=== PATIENT | female | born 1940 | race Caucasian/White ===

== ENCOUNTER → 2016-04-24 | Outpatient (CLI) | payer OTHER ==
[~2016-04-24] MED LIST: ACET-1138 PO; ACET-1256 PO; ATOR-22 PO; CALCTAB5 PO; CLC100 PO; DLCS PR; LEVO100T35 PO; MLXC PO; MOMLX PO; MULTCHW PO; PRLSR20 PO; RXC5 PO; SERT-234 PO; SYN100 PO; TRAM-10 PO; ZNTT/150 PO
[2016-04-24 17:59] LABS: ALT/SGPT 22 U/L (12-78); BLOOD UREA NITROGEN 12 mg/dl (7-18); BUN/CREATININE RATIO 17.5 (10-20); CARBON DIOXIDE 25 mmol/L (21-32); CHLORIDE 106 mmol/L (98-107); CHOLESTEROL 169 mg/dl (0-200); CREATININE 0.71 mg/dl (0.60-1.20); GLUCOSE 98 mg/dl (70-99); POTASSIUM 4.3 mmol/L (3.5-5.1); SODIUM 140 mmol/L (136-145)
[2016-04-24 18:09] LABS: ALB/GLOB RATIO 0.8 (0.9-2); ALKALINE PHOSPHATASE 156 U/L (45-117); AST/SGOT 19 U/L (15-37); CHOLESTEROL/HDL RATIO 2.2; HDL CHOLESTEROL 78 mg/dl; LDL CHOLESTEROL CALCULATED 72 mg/dl; TRIGLYCERIDES 93 mg/dl (0-150); VERY LOW DENSITY LIPOPROT CALC 19 mg/dl
== END | disposition home or self-care (01) ==
LOC: C.LABPVFM 14:12
PROVIDERS: ATTEND Family Medicine
DX: E03.9 Hypothyroidism, unspecified (principal); E78.2 Mixed hyperlipidemia

== ENCOUNTER → 2016-06-13 | Outpatient (CLI) | payer OTHER ==
[~2016-06-13] MED LIST changes: +CALC600T37 PO; +LEVO100T7 PO; +MULT-506 PO; +SERT1TAB68 PO
--- NOTE | 2016-06-13 12:07 | DIAGNOSTIC IMAGING REPORT ---
LEFT RIBS UNILATERAL WITH PA CHEST CLINICAL HISTORY: CHEST WALL PAIN, INSPIRATORY PAIN pain. Dyspnea. COMPARISON STUDY: None FINDINGS: Negative left ribs. Severe degenerative change left shoulder. Chronic granulomatous changes left hilum. IMPRESSION: 1. No acute abnormality ribs. 2. Severe degenerative change left shoulder. Electronically signed by: Sanket Beckford M.D. 06/13/2016 12:05 PM Dictated Date/Time: 06/13/2016 12:03 PM
== END | disposition home or self-care (01) ==
LOC: C.RADPV 11:37
PROVIDERS: ATTEND Nurse Practitioner
DX: R07.89 Other chest pain (principal); R07.1 Chest pain on breathing

== ENCOUNTER 2016-08-07 08:16 | Inpatient (IN) | payer OTHER ==
[2016-07-26 14:32] VITALS: BMI 41.0
--- NOTE | 2016-07-26 15:08 | PAT Medication Instructions ---
Service Date July 26, 2016. Current Home Medication List Acetaminophen (Tylenol), 1,000 MG PO Q6 PRN for Pain Atorvastatin (Lipitor), 20 MG PO QPM Calcium Carbonate (Caltrate 600), 1 TAB PO HS Levothyroxine Sodium (Levoxyl), 100 MCG PO QAM Multiple Vitamins W/ Minerals (Centrum Silver), 1 TAB PO QAM Omeprazole (Prilosec), 20 MG PO BID Ranitidine (Zantac), 150 MG PO BID Sertraline (Zoloft), 100 MG PO QAM Medication Instructions For Your Scheduled Surgery - Hold the following medications the morning of surgery: Multiple Vitamins W/ Minerals (Centrum Silver), 1 TAB PO QAM - Take the following medications the morning of surgery with a sip of water: Sertraline (Zoloft), 100 MG PO QAM Omeprazole (Prilosec), 20 MG PO BID Ranitidine (Zantac), 150 MG PO BID Levothyroxine Sodium (Levoxyl), 100 MCG PO QAM Acetaminophen (Tylenol), 1,000 MG PO Q6 PRN for Pain (if needed) - Take the following medications as scheduled the night before surgery: Omeprazole (Prilosec), 20 MG PO BID Ranitidine (Zantac), 150 MG PO BID .Atorvastatin (Lipitor), 20 MG PO QPM Calcium Carbonate (Caltrate 600), 1 TAB PO HS If you have any questions please call us at [phone] or [phone] ( Michelle) or [phone]
[2016-07-26 16:01] LABS: BASO % 0.3 %; BASO ABS # 0.02 K/uL (0-0.2); COMPLETE YES; EOS % 0.3 %; HEMATOCRIT 43.1 % (37-47); IG% 0.2 %; LYMPH ABS # 1.25 K/uL (1.2-3.4); MEAN CELL VOLUME 93.5 fL (80-100); MEAN CORPUSCULAR HEMOGLOBIN 30.6 pg (25-34); MEAN CORPUSCULAR HGB CONC 32.7 g/dl (32-36); MEAN PLATELET VOLUME 9.3 fL (7.4-10.4); MONO % 4.6 %; NEUT % 74.6 %; PLATELET COUNT 260 K/uL (130-400); RED BLOOD COUNT 4.61 M/uL (4.2-5.4); WHITE BLOOD COUNT 6.25 K/uL (4.8-10.8)
--- NOTE | 2016-07-26 16:16 | DIAGNOSTIC IMAGING REPORT ---
CHEST PREADMISSION(PA/LAT) CLINICAL HISTORY: Preoperative evaluation. COMPARISON STUDY: Chest CT April 14, 2015. FINDINGS: Lung volumes are normal. Lungs are clear. There is no pneumothorax or pleural effusion. There are calcified left hilar lymph nodes. Mild cardiomegaly is noted. There is no evidence of pulmonary edema. Lumbar spine fusion hardware is partially imaged. IMPRESSION: 1. No acute cardiopulmonary findings. 2. Moderate cardiomegaly. Electronically signed by: Alan Brannon M.D. 07/26/2016 4:14 PM Dictated Date/Time: 07/26/2016 4:12 PM
[2016-07-26 16:27] LABS: PROTHROMBIN TIME (PATIENT) 10.7 SECONDS (9.0-12.0)
[2016-07-26 18:29] LABS: CREATININE 0.76 mg/dl (0.60-1.20)
[2016-07-26 18:30] LABS: BUN/CREATININE RATIO 15.9 (10-20); CALCIUM 9.3 mg/dl (8.5-10.1); POTASSIUM 4.1 mmol/L (3.5-5.1)
[2016-07-27 07:28] LABS: ESTIMATED AVERAGE GLUCOSE 128 mg/dl; HA1C FLAG Normal (Normal)
[2016-07-27 09:34] LABS: URINE APPEARANCE CLEAR (CLEAR); URINE BILIRUBIN NEG (NEG); URINE COLOR YELLOW; URINE NITRITE NEG (NEG); URINE SPECIFIC GRAVITY 1.017 (1.000-1.030); UROBILINOGEN NEG (NEG)
[2016-07-27 09:37] LABS: MANUAL MICROSCOPIC REQUIRED? NO; REVIEW REQ? NO
--- NOTE | 2016-08-06 19:57 | HISTORY & PHYSICAL EXAMINATION ---
DATE OF ADMISSION: 08/07/2016 CHIEF COMPLAINT: Chronic left shoulder pain. HISTORY OF PRESENT ILLNESS: This is a 76-year-old female patient of Dr. Dunbar'ema complaining of chronic left shoulder pain, longstanding, now progressively getting worse. The patient has failed conservative treatment and wished to proceed with a left total shoulder arthroplasty and excision of calcific deposit. PAST MEDICAL HISTORY: Hypercholesterolemia, hypothyroidism, osteoarthritis, spine problems, sciatica, acid reflux, hiatal hernia, obesity, uterine cancer. SOCIAL HISTORY: Nonsmoker, nondrinker. PAST SURGICAL HISTORY: Bilateral hip replacements, back surgery, hysterectomy and tubal ligation. FAMILY HISTORY: Noncontributory. REVIEW OF SYSTEMS: The patient complains of chronic left shoulder pain. Otherwise, denies any shortness of breath, chest pain, nausea, vomiting or any other joint complaints. MEDICATIONS: Include Levoxyl 100 mcg daily, Zoloft 100 mg daily, ranitidine 150 mg b.i.d., omeprazole 20 mg b.i.d., Centrum Complete vitamin daily, atorvastatin 20 mg daily, Caltrate 600 plus D daily, Tylenol Arthritis as needed. ALLERGIES: ASPIRIN. PHYSICAL EXAMINATION: GENERAL: Well-developed, well-nourished 76-year-old female in no acute distress. She is alert and oriented x3 and pleasant. HEENT: Normocephalic, atraumatic. Extraocular motions are intact. Pupils are equal and reactive to light. HEART: Regular rate and rhythm. No murmurs are appreciated. LUNGS: Clear. ABDOMEN: Soft, nontender, bowel sounds present. EXTREMITIES: Left shoulder reveals active range of motion of 0-180, passively to 170. She has crepitation with passive range of motion. She has 4/5 strength. NEUROLOGIC: Neurovascularly, she is intact in her left upper extremity. She does have pain with range of motion. DIAGNOSES: Left shoulder end-stage osteoarthritis with calcific deposit. She also has a history of hypercholesterolemia, hypothyroidism, osteoarthritis, spine problems, sciatica, acid reflux, hiatal hernia, obesity and a history of uterine cancer. PLAN: The patient was advised of her diagnoses. Indications, risks, benefits, and postop course have all been reviewed. The patient wishes to proceed with a left total shoulder arthroplasty and excision of calcific deposit. Necessary consent forms, preoperative testing and clearances will be obtained.
[2016-08-07] VITALS (7 sets, daily range): BP systolic 124–156; BP diastolic 74–96; PULSE 88–104; TEMP 34.8–37.1; O2SAT 93–98; Ht 154.9 cm; Wt 97.5 kg
[~2016-08-07] VITALS: Ht 154.9 cm; Wt 97.5 kg
[~2016-08-07 08:16] MED LIST changes: -ACET-1138 PO; +ACETAMINOPHEN 500 MG TAB PO SCH; -CALC600T37 PO; +CEFAZOLIN 2000 MG/60 ML D5W 60 ML IV SCH; -CLC100 PO; +CeleBREX 200 MG CAP PO SCH; +DEXAMETHASONE 4 MG TAB PO SCH; +DEXAMETHASONE SOD INJ 4 MG/ML VIAL ONE; -DLCS PR; +FAMOTIDINE 20 MG TAB PO SCH; +FENTANYL CITRATE INJ 50 MCG/1 ML 2 ML VIAL ONE; +GABAPENTIN 300 MG CAP PO SCH; +GLYCOPYRROLATE INJ 0.2 MG/ML VIAL ONE; +LACTATED RINGER'S 1000ML 1,000 ML IV SCH; -LEVO100T7 PO; +LIDOCAINE HCL 2% 2 ML VIAL (20MG/ML) ONE; +METOCLOPRAMIDE HCL 10 MG TAB PO SCH; +MIDAZOLAM HCL 1 MG/ML 2ML VIAL ONE; -MLXC PO; -MOMLX PO; -MULT-506 PO; +NEOSTIGMINE METHYLSULFATE 5 MG/5 ML SYR ONE; +ONDANSETRON INJ 2 MG/ML 2 ML VIAL ONE; +PROPOFOL IV EMULSION 10 MG/ML 20 ML VIAL IV ONE; +ROCURONIUM BROMIDE 10 MG/ML 5 ML VIAL ONE; -RXC5 PO; -SERT1TAB68 PO; -SYN100 PO; -TRAM-10 PO
--- NOTE | 2016-08-07 08:29 | History & Physical Bridge Note ---
H&P Re-Evaluation Bridge Note: I have examined the patient, reviewed the History & Physical and in the interval since the performance of the History & Physical I have noted the following changes of clinical significance: No changes noted
[2016-08-07] MEDS ORDERED: BACITRACIN 50000 UNIT VIAL ONE (08:45)
[2016-08-07] MEDS ORDERED: CLONIDINE HCL 100 MCG/ML SYRINGE ONE (08:46)
[2016-08-07] MEDS ORDERED: BUPIVACAINE 0.5 % 5 MG/1 ML PF 10ML VIAL ONE (08:46)
[2016-08-07] MEDS ORDERED: MEPIVACAINE HCL 1.5% 30 ML VIAL ONE (08:46)
[2016-08-07] MEDS ORDERED: EPINEPHRINE TOP ONE (12:10)
--- NOTE | 2016-08-07 13:19 | [facility] Operative Report ---
Operative Report Operative Date August 07, 2016. Pre-Operative Diagnosis Left shoulder end-stage osteoarthritis with calcific deposit and biceps tendinopathy Post-Operative Diagnosis same Procedure(s) Performed left total shoulder arthroplasty and biceps tenodesis Surgeon Dr. Dunbar Fish Culturist Surgeon(s) Flores Martínez PA-C Estimated Blood Loss 30 cc Findings end stage oa grade 4 djd concentric wear,biceps tendinopathy and not well defined calcium deposit Specimens A: left humeral head Drains 2 hemovac Anesthesia general and regional Complication(s) None Disposition Recovery Room / PACU Indications end stage djd oa chronic pain I attest to the content of the Intraoperative Record and any orders documented therein. Any exceptions are noted below.
[2016-08-07] MEDS ORDERED: ALUMINUM/MAGNESIUM SUSP 30 ML UDC PO PRN (13:30)
[2016-08-07] MEDS ORDERED: MAGNESIUM HYDROXIDE SUSP 30 ML UDC PO PRN (13:30)
[2016-08-07] MEDS ORDERED: BISACODYL 10 MG SUPP PR PRN (13:30)
[2016-08-07] MEDS ORDERED: ATROPINE SULFATE 0.1 MG/ML 5ML SYR IV PRN (14:00)
[2016-08-07] MEDS ORDERED: EpHEDrine SULFATE INJ 50 MG/ML AMP IV PRN (14:00)
[2016-08-07] MEDS ORDERED: FLUMAZENIL 0.1 MG/1 ML 10 ML VIAL IV PRN (14:00)
[2016-08-07] MEDS ORDERED: PROMETHAZINE HCL INJ 12.5 MG in SODIUM CHLORIDE 0.9% 50ML 50 ML IV PRN (14:00)
[2016-08-07] MEDS ORDERED: LABETALOL HCL IV 5 MG/ML 20ML IV PRN (14:00)
[2016-08-07] MEDS ORDERED: ONDANSETRON INJ 2 MG/ML 2 ML VIAL IV PRN (14:00)
[2016-08-07] MEDS ORDERED: NALOXONE HCL 0.4 MG/1 ML VIAL/CARP IV PRN (14:00)
--- NOTE | 2016-08-07 14:16 | Anesthesiology Progress Note ---
Anesthesia Post Op Note Date & Time August 07, 2016 at 14:17 Vital Signs Pain Intensity: 0 Vital Signs Past 12 Hours Date Time Temp Pulse Resp B/P Pulse Ox O2 Delivery O2 Flow Rate FiO2 08/07/16 14:05 90 20 150/87 92 Nasal Cannula 2 08/07/16 13:55 87 22 153/86 98 Mask 10 08/07/16 13:45 89 22 151/85 96 Mask 10 08/07/16 13:37 36.2 92 22 156/85 96 Mask 10 08/07/16 08:40 36.8 94 20 151/96 96 Room Air Notes Mental Status: alert / awake / arousable, participated in evaluation Pt Amnestic to Procedure: Yes Nausea / Vomiting: adequately controlled Pain: adequately controlled Airway Patency, RR, SpO2: stable & adequate BP & HR: stable & adequate Hydration State: stable & adequate Anesthetic Complications: no major complications apparent
--- NOTE | 2016-08-07 14:54 | DIAGNOSTIC IMAGING REPORT ---
LEFT SHOULDER MIN 2 VIEWS ROUTINE CLINICAL HISTORY: Post shoulder surgery COMPARISON: None. DISCUSSION: Evidence for a left shoulder arthroplasty. Good contact between prosthetic and underlying bone. Expected soft tissue postoperative change. IMPRESSION: Anatomic alignment status post left shoulder arthroplasty Electronically signed by: Sanket Beckford M.D. 08/07/2016 2:53 PM Dictated Date/Time: 08/07/2016 2:52 PM
--- NOTE | 2016-08-07 15:39 | OPERATIVE REPORT ---
DATE OF OPERATION: 08/07/2016 INDICATION FOR PROCEDURE: A 76-year-old female with chronic progressive osteoarthritis in her left shoulder. She has failed conservative management. Radiographs demonstrate she is tack-ob-vazr in the glenohumeral joint with concentric wear pattern on axillary view. MRI demonstrates intact rotator cuff. She does have calcific deposit in the infraspinatus tendon. PREOPERATIVE DIAGNOSIS: End-stage osteoarthritis left shoulder with chronic biceps tenosynovitis and calcific tendinitis. POSTOPERATIVE DIAGNOSIS: Same with biceps tendonopathy and a calcium deposit which was not well defined by visual exam. PROCEDURE: Left total shoulder arthroplasty and biceps tenodesis. SURGEON: Dr. Dunbar. BENCH WORKER APPRENTICE: Marc Martínez PA-C. ANESTHESIA: Regional block and general. OPERATIVE PROCEDURE: The patient was taken to the operating room, anesthetized under regional block and general anesthetic. She was positioned on the operating room table with a towel roll under the medial border of her left scapula. She was translated to left side of the bed so her shoulder could be manipulated off the bed as necessary. She was placed on a foam headrest. She had protective eyewear. She had a Jarquin catheter placed. She was positioned in about a 30-40 degree beach chair position. It was noted that she was obese. Her BMI was 40.6. This obesity did include the arm operated on. Shoulder exam under anesthesia demonstrates she had about 125-130 degrees of forward elevation and abduction to about 80 degrees and external rotation between 25 and 30 degrees. She had [id number] crepitation of the shoulder. She had an obese arm. The left upper extremity was then prepped and draped in usual sterile fashion using ChloraPrep. An anterior deltopectoral approach was performed. A longitudinal incision was made over the deltopectoral interval. The skin was incised sharply and a deep layer of fat was divided down to the fascia. Subcutaneous bleeders were cauterized as needed. She had a very large cephalic vein, which was dissected out and retracted laterally with the deltoid. Some crossing veins were tied off with silk ties and divided. The clavipectoral fascia was divided at the lateral margin of the strap muscles and extended up to the CA ligament which was preserved. The rotator cuff bursa was resected. There was a lot of significant bursitis more toward superior posterior rotator cuff. Some of this inflamed bursa was resected to fully visualize the rotator cuff to be intact throughout the shoulder. There was some bulging rotator interval tissue due to a joint effusion. There was some chronic tenosynovitis of the biceps tendon overlying the biceps and wrapping around the biceps tendon. The shoulder was rotated to look for the calcium deposit in the infraspinatus, but it was not well defined calcium deposit by probing, palpation or visualized identification. We did take spinal needle to barbotage the infraspinatus tendon in the area where we suspected the deposit to be. Then attention was taken to the biceps tendon. The biceps sheath was opened up. The inflamed tenosynovitis was resected and the upper centimeter of the pectoralis was released for inferior exposure of the shoulder and then the biceps tendon was tenodesed to the pec tendon using a #2 FiberWire [id number]-[id number] suture. Then the proximal biceps was resected. The circumflex vessels were identified, tied off with silk ties and divided laterally. The muscle fibers of the subscapularis were split just at the level of the circumflex vessels leaving a cuff of tissue to protect the axillary nerve which was palpated, protected with a blunt Hohmann retractor. The rotator interval was opened up and the joint effusion was evacuated. A transtendinous incision was made through the subscapularis leaving a cuff of tissue for repair on the lesser tuberosity. A #1 Vicryl traction suture was placed into the end of the subscap tendon to control that. Then a Fukuda retractor was placed into the joint. The anterior capsule was divided with Brunson scissors down to the glenoid at about the 5 o'clock position. With the left shoulder would be at the 7 o'clock position. Then we capsule from the subscap muscle fibers and released the capsule anteriorly off to glenoid until we met the rotator interval release so we had a 360 degree release of the subscapularis. Then a Bankart retractor was placed anteriorly. The anterior and anterior inferior labrum was resected and then capsule was released, electrocautery on bone and a Jones elevator released the anterior inferior and posterior inferior capsule. The glenoid was noted to be completely devoid of any articular cartilage. There was a central wear pattern. The humeral head was exposed with extension and external rotation. The osteophytes around the inferior lateral posterior aspect of the humeral head were resected. There were some superior osteophytes resected as well. The joint surface was completely down to bone. The arm was externally rotated and the humeral articular surface was fully exposed and the articular surface was resected with the oscillating saw in an anatomic version. The humeral head was measured for a 46 mm diameter humeral component. I used the [employer] Ascend Flex humeral components with the Aequalis humeral head and the Affiniti CortiLoc glenoid component from [employer]. The humerus was then retracted posterior to the glenoid with retractors. Bankart retractor was placed anteriorly and the remnants of the biceps and superior labrum were resected and the glenoid was fully exposed, measured to have a 44 size glenoid placed. The 10 blade for the 44 trial was placed. The central drill hole was marked and drilled and the 44 mm reamer was used followed by widening the hole for the peg guide, drill holes for the peripheral pegs was used and the trial reduction with a 44 trial had excellent fit and stability of the implant. The trial was removed. The glenoid was irrigated copiously with antibiotic solution with bacitracin and then we used epinephrine sponges, which were epinephrine tampon to place into the individual drill holes for hemostasis while we mixed the Palacos G cement. We cemented the component cementing the peripheral peg holes, central peg hole was pressfit, base of the central peg hole was cemented and back of the implant cemented. The implant was impacted into position after the glenoid was dried and then all excess cement was cleared. It was held in position until the cement cured and then after copious irrigation with antibiotic solution and bacitracin attention was taken to the humeral preparation. Humerus was repaired with central awl followed by broaches up to a 4, which was the best canal fit, but we did the final broaching. The metaphyseal bone was very hard and we could only go up to 3 stem due to the dense metaphyseal bone. We went with the 3B trial stem and then used the low offset 46 x 17 head which was held into position and then we did a trial reduction which had good stability through full motion. The trial was removed and the final components were assembled on the back table, which were the standard Ascend Flex stem size 3B assembled to the 46 x 17 low offset and 12.5 mm low offset head. We rotated the head appropriately to match the rotation of the trial and then impacted the head onto the stem. Then I drilled 3 drill holes through the hard bone in the bicipital groove lateral to the lesser tuberosity and placed three #5 FiberWire sutures transosseously through the bone. Then after copious irrigation of the humerus and canal and drying that appropriately then the final implant was impacted in position with tight pressfit. This was reduced to the glenoid and then repaired the subscapularis with the #5 FiberWire sutures using Paul-Mack suture technique. Soft tissue gciyxz-pi-wpasp lateral row fixation with #2 FiberWire sutures. Rotator interval was closed in maximal external rotation of 30 degrees with interrupted #2 Fiberwire sutures getting complete subscap repair and rotator interval repair. The range of motion at this point was 130 to 135 degrees of forward elevation without tension on the repair, 90 degrees of abduction and external rotation to 30 without tension on the repair. Shell was completely stable. Wound was copiously irrigated. The pectoralis was then repaired with pufotf-bp-wawsl #2 FiberWire sutures placing sutures through the biceps tendon again to reinforce the tenodesis. The 2 Hemovac drains were placed. The deltopectoral interval was closed with [id number] #1 Vicryl sutures and the subcutaneous tissue closed with interrupted 2-0 Vicryl, skin closed with bethany. Sterile dressings were applied and the patient tolerated the procedure well with about 30 mL of blood loss. Marc Martínez PA-C was my residential real estate assistant. He functioned as residential real estate assistant for the entire procedure. He assisted in patient positioning, prepping, draping, arm positioning, instrument management, soft tissue retraction as necessary and he did perform the final subcutaneous skin closure dressings and will participate in postoperative care of the patient. I attest to the content of the Intraoperative Record and any orders documented therein. Any exceptio ns are noted below.
[2016-08-07] MEDS: D5W AND 1/2NSS 1,000 ML IV SCH (16:14)
--- NOTE | 2016-08-07 17:27 | Medical Consult ---
Consultation Date of Consultation: August 07, 2016. Attending Physician: Kurtis Dunbar M.D. Reason for Consultation: post op management History of Present Illness This is a 76 year old female patient of Dr. Dunbar's complaining of chronic left shoulder pain who has failed OP conservative tx and underwent total shoulder arthroplasty. Pt has been consulted to our service for further management. Past Medical/Surgical History Medical Problems: (1) Degenerative joint disease (DJD) of hip Status: Acute (2) Facial contusion Status: Acute (3) Hand contusion Status: Acute (4) Head injury Status: Acute (5) Hemorrhoids Status: Acute (6) Intractable back pain Status: Acute (7) Lumbar disc herniation with radiculopathy Status: Acute Family History Cancer Diabetes mellitus FH: kidney disease Heart disease Hypertension Kidney disease Social History Smoking Status: Former Smoker Drug Use: none Marital Status: Housing Status: lives alone Occupation Status: retired Allergies Coded Allergies: Aspirin (Verified Adverse Reaction, Unknown, contraindicated d/t gastritis , 08/07/16) Current Inpatient Medications Current Inpatient Medications Medications (Trade) Dose Ordered Sig/Paula Route Start Time Stop Time Status Last Admin Dose Admin Atorvastatin Calcium (Lipitor Tab) 20 mg QPM PO 08/07/16 21:00 09/06/16 20:59 Levothyroxine Sodium (Synthroid Tab) 100 mcg DAILYBB PO 08/08/16 06:00 09/07/16 05:59 Ranitidine HCl (zANTac TAB) 150 mg BID PO 08/07/16 21:00 09/06/16 20:59 Sertraline HCl (Zoloft Tab) 100 mg QAM PO 08/08/16 09:00 09/07/16 08:59 Calcium Carbonate (oS-Onel 500 TAB) 1,250 mg HS PO 08/07/16 21:00 09/06/16 20:59 Al Hydroxide/Mg Hydroxide (Maalox Susp) 30 ml Q4H PRN PO 08/07/16 13:30 09/06/16 13:29 Pantoprazole Sodium (Protonix Tab) 40 mg QAM PO 08/08/16 09:00 09/07/16 08:59 Oxycodone HCl (Roxicodone Immediate Rel Tab) `1-2 TABS FOR PAIN `1 TAB... Q4H PRN PO 08/07/16 13:30 08/21/16 13:29 Acetaminophen (Tylenol Tab) 1,000 mg Q8 PO 08/07/16 22:00 09/06/16 21:59 Magnesium Hydroxide (Milk Of Magnesia Susp) 30 ml Q6H PRN PO 08/07/16 13:30 09/06/16 13:29 Bisacodyl (Dulcolax Supp) 10 mg DAILY PRN [place] 08/07/16 13:30 09/06/16 13:29 Senna (Senokot Tab) 17.2 mg HS PO 08/07/16 21:00 09/06/16 20:59 Docusate Sodium (coLACE CAP) 100 mg BID PO 08/07/16 21:00 09/06/16 20:59 Multivitamins 1 tab 1 tab DAILY PO 08/08/16 09:00 09/07/16 08:59 Cefazolin Sodium/ Dextrose (Ancef Iv/D5 50ml) 60 ml @ 100 mls/hr Q8H IV 08/07/16 18:00 08/08/16 02:35 Naloxone HCl (Narcan Inj) 0.2 mg Q2M PRN IV 08/07/16 14:00 08/07/16 19:00 Flumazenil (Romazicon Inj) 0.2 mg Q2M PRN IV 08/07/16 14:00 08/07/16 19:00 Ondansetron HCl 4 mg 4 mg ONE PRN IV 08/07/16 14:00 08/07/16 19:00 Promethazine HCl/ Sodium Chloride (Phenergan Inj/ Nss 50ml) 50.5 ml @ 202 mls/hr ONE PRN IV 08/07/16 14:00 08/07/16 19:00 Labetalol HCl (Normodyne IV) 5 mg Q5M PRN IV 08/07/16 14:00 08/07/16 19:00 Ephedrine Sulfate (EpHEDrine SULFATE INJ) 5 mg Q5M PRN IV 08/07/16 14:00 08/07/16 19:00 Atropine Sulfate 0.5 mg 0.5 mg Q1M PRN IV 08/07/16 14:00 08/07/16 19:00 Dextrose/Sodium Chloride (D5W And 1/2nss) 1,000 ml @ 100 mls/hr Q10H IV 08/07/16 14:45 09/06/16 14:44 08/07/16 16:14 100 MLS/HR Review of Systems Constitutional: No chills, No fever Eyes: No eye pain, No worsening of vision ENT: No unusual epistaxis Respiratory: No cough, No dyspnea on exertion, No shortness of breath, No sputum, No wheezing Cardiovascular: No PND, No chest pain, No edema, No orthopnea Abdomen: No constipation, No diarrhea, No nausea, No pain, No vomiting Musculoskeletal: + joint pain, + muscle pain, No swelling Genitourinary - Female: No dysuria, No urinary frequency, No urinary incontinence, No urinary urgency Psychiatric: No anhedonism, No anxiety, No depression symptoms Endocrine: No excessive thirst, No fatigue Physical Exam Date Time Temp Pulse Resp B/P Pulse Ox O2 Delivery O2 Flow Rate FiO2 08/07/16 16:50 36.3 88 16 154/83 96 Nasal Cannula 3.0 08/07/16 16:20 34.8 90 16 156/84 97 Nasal Cannula 2.0 08/07/16 15:30 86 17 125/82 92 Nasal Cannula 3 08/07/16 15:15 83 18 131/77 92 Nasal Cannula 3 08/07/16 15:00 81 17 135/81 92 Nasal Cannula 3 08/07/16 14:45 90 24 131/77 92 Nasal Cannula 2 08/07/16 14:30 87 20 138/87 93 Nasal Cannula 2 08/07/16 14:15 36.7 82 24 142/77 93 Nasal Cannula 2 08/07/16 14:05 90 20 150/87 92 Nasal Cannula 2 08/07/16 13:55 87 22 153/86 98 Mask 10 08/07/16 13:45 89 22 151/85 96 Mask 10 08/07/16 13:37 36.2 92 22 156/85 96 Mask 10 08/07/16 08:40 36.8 94 20 151/96 96 Room Air General Appearance: WD/WN, no apparent distress Head: normocephalic, atraumatic Eyes: PERRL, EOMI Neck: supple, no adenopathy Respiratory/Chest: chest non-tender, lungs clear, normal breath sounds, no respiratory distress Cardiovascular: regular rate, rhythm, no edema, no gallop, no JVD Abdomen/GI: normal bowel sounds, non tender, soft, no organomegaly Back: normal inspection, no CVA tenderness, no muscle spasm, normal range of motion Neurologic/Psych: alert, normal mood/affect, normal reflexes, oriented x 3 Assessment & Plan Pt is a 76 yo female who underwent left total shoulder arthroplasty and consulted to our services for post op management Shoulder pain s/p total shoulder arthroplasty POD # 0 , pain controlled, dispo and DVT ppx per primary team. Will get CBC to monitor for acute blood loss Dyslipidemia - Cont statin Hypothyroidism - Cont synthroid GERD - Cont zantac and protonix OA stable Pt is FULL CODE
[2016-08-07] MEDS: CEFAZOLIN IV 2,000 MG in DEXTROSE 5% 50ML 50 ML IV SCH (18:18)
[2016-08-07 18:24] LABS: BASO % 0.1 %; BASO ABS # 0.01 K/uL (0-0.2); COMPLETE YES; HEMATOCRIT 38.1 % (37-47); IG% 0.2 %; LYMPH ABS # 0.51 K/uL (1.2-3.4); MEAN CELL VOLUME 92.9 fL (80-100); MEAN CORPUSCULAR HGB CONC 32.3 g/dl (32-36); MEAN PLATELET VOLUME 8.8 fL (7.4-10.4); MONO % 4.6 %; NEUT % 91.1 %; PLATELET COUNT 224 K/uL (130-400)
[2016-08-07 18:42] LABS: BUN/CREATININE RATIO 14.2 (10-20); CALCIUM 8.2 mg/dl (8.5-10.1); CREATININE 0.75 mg/dl (0.60-1.20); POTASSIUM 4.3 mmol/L (3.5-5.1)
[2016-08-07] MEDS: CALCIUM CARBONATE 1250MG TAB PO SCH (21:53)
[2016-08-07] MEDS: ATORVASTATIN 20 MG TAB PO SCH (21:53)
[2016-08-07] MEDS: DOCUSATE SODIUM 100 MG CAP PO SCH (21:53)
[2016-08-07] MEDS: ACETAMINOPHEN 500 MG TAB PO SCH (21:54)
[2016-08-07] MEDS: RANITIDINE HCL 150 MG TAB PO SCH (21:54)
[2016-08-07] MEDS: SENNA 8.6 MG TAB PO SCH (21:54)
[2016-08-08] VITALS (10 sets, daily range): BP systolic 84–136; BP diastolic 54–79; PULSE 73–86; TEMP 34.8–36.7; O2SAT 93–99
[2016-08-08] MEDS: D5W AND 1/2NSS 1,000 ML IV SCH ×3 (00:03→21:35)
[2016-08-08] MEDS: CEFAZOLIN IV 2,000 MG in DEXTROSE 5% 50ML 50 ML IV SCH (01:42)
[2016-08-08] MEDS: OXYCODONE HCL IR 5 MG TAB (IMMEDIATE RELEASE) PO PRN ×4 (03:57→16:53)
[2016-08-08] MEDS: ACETAMINOPHEN 500 MG TAB PO SCH ×3 (05:36→21:36)
[2016-08-08] MEDS: LEVOTHYROXINE 100 MCG TAB PO SCH (05:36)
[2016-08-08 06:31] LABS: HEMATOCRIT 37.9 % (37-47); MEAN CORPUSCULAR HEMOGLOBIN 29.8 pg (25-34); MEAN CORPUSCULAR HGB CONC 31.7 g/dl (32-36); MEAN PLATELET VOLUME 8.9 fL (7.4-10.4); PLATELET COUNT 222 K/uL (130-400); RED BLOOD COUNT 4.03 M/uL (4.2-5.4); WHITE BLOOD COUNT 7.05 K/uL (4.8-10.8)
[2016-08-08 07:03] LABS: BUN/CREATININE RATIO 12.1 (10-20); CALCIUM 8.2 mg/dl (8.5-10.1); CREATININE 0.81 mg/dl (0.60-1.20); POTASSIUM 3.7 mmol/L (3.5-5.1)
--- NOTE | 2016-08-08 07:49 | Orthopedic Progress Note ---
Orthopedic Progress Note Date of Service August 08, 2016. Subjective Post OP Day: 1 Reports: feeling well, pain controlled w PO medications, Denies: SOB, calf pain , chest pain, complaints, light headedness, nausea / vomiting Objective N/V intact, capillary refill less than 2 sec., dressing C/D/I, A&O x3 Fingers mobile, sling in tact. Date Time Temp Pulse Resp B/P Pulse Ox O2 Delivery O2 Flow Rate FiO2 08/08/16 02:55 36.5 86 16 135/77 97 Nasal Cannula 3.0 08/07/16 23:59 Nasal Cannula 3.0 08/07/16 23:34 36.5 90 16 130/78 98 Nasal Cannula 3.0 08/07/16 18:50 36.5 101 18 131/80 96 Nasal Cannula 3.0 08/07/16 17:50 37.1 104 16 124/74 93 Nasal Cannula 3.0 08/07/16 16:50 36.3 88 16 154/83 96 Nasal Cannula 3.0 08/07/16 16:20 34.8 90 16 156/84 97 Nasal Cannula 2.0 08/07/16 15:50 93 Nasal Cannula 3.0 08/07/16 15:50 36.4 91 18 146/81 93 Nasal Cannula 3.0 08/07/16 15:50 93 Nasal Cannula 3.0 08/07/16 15:30 86 17 125/82 92 Nasal Cannula 3 08/07/16 15:15 83 18 131/77 92 Nasal Cannula 3 08/07/16 15:00 81 17 135/81 92 Nasal Cannula 3 08/07/16 14:45 90 24 131/77 92 Nasal Cannula 2 08/07/16 14:30 87 20 138/87 93 Nasal Cannula 2 08/07/16 14:15 36.7 82 24 142/77 93 Nasal Cannula 2 08/07/16 14:05 90 20 150/87 92 Nasal Cannula 2 08/07/16 13:55 87 22 153/86 98 Mask 10 08/07/16 13:45 89 22 151/85 96 Mask 10 08/07/16 13:37 36.2 92 22 156/85 96 Mask 10 08/07/16 08:40 36.8 94 20 151/96 96 Room Air Laboratory Results 24 Hours: Test 08/07/16 18:15 08/08/16 06:05 White Blood Count 12.70 K/uL Red Blood Count 4.10 M/uL Hemoglobin 12.3 g/dL 12.0 g/dL Hematocrit 38.1 % 37.9 % Mean Corpuscular Volume 92.9 fL Mean Corpuscular Hemoglobin 30.0 pg Mean Corpuscular Hemoglobin Concent 32.3 g/dl Platelet Count 224 K/uL Mean Platelet Volume 8.8 fL Neutrophils (%) (Auto) 91.1 % Lymphocytes (%) (Auto) 4.0 % Monocytes (%) (Auto) 4.6 % Eosinophils (%) (Auto) 0.0 % Basophils (%) (Auto) 0.1 % Neutrophils # (Auto) 11.57 K/uL Lymphocytes # (Auto) 0.51 K/uL Monocytes # (Auto) 0.58 K/uL Eosinophils # (Auto) 0.00 K/uL Basophils # (Auto) 0.01 K/uL Assessment & Plan Assessment: POD #1, Left TSA, biceps tenodesis. Plan: PT/ OT D/C planning- Rehab, patient lives alone. As per medicine. Inhouse Planning Pain Management: PO Tylenol, Oxy IR DVT Prophylaxis: TEDs, SCDs Discharge Planning Discharge Planning: rehab hospital Pain Management: PO Tylenol, Oxy IR DVT Prophylaxis: TEDs, SCDs Therapy: Physical Therapy, Occupational Therapy
[2016-08-08] MEDS: RANITIDINE HCL 150 MG TAB PO SCH ×2 (08:28→21:36)
[2016-08-08] MEDS: SERTRALINE HCL 100 MG TAB PO SCH (08:28)
[2016-08-08] MEDS: PANTOprazole SOD 40 MG TAB PO SCH (08:29)
[2016-08-08] MEDS: MULTIVITAMIN TAB PO SCH (08:29)
[2016-08-08] MEDS: DOCUSATE SODIUM 100 MG CAP PO SCH ×2 (08:29→21:36)
--- NOTE | 2016-08-08 15:16 | Progress Note ---
Subjective Date of Service: August 08, 2016. Subjective Pt evaluation today including: conversation w/ patient, physical exam, chart review, lab review, review of studies, review of inpatient medication list Pt resting comfortably in bed minimal shoulder pain No acute events overnights No further concerns per patient Problem List Medical Problems: (1) Degenerative joint disease (DJD) of hip Status: Acute (2) Facial contusion Status: Acute (3) Hand contusion Status: Acute (4) Head injury Status: Acute (5) Hemorrhoids Status: Acute (6) Intractable back pain Status: Acute (7) Lumbar disc herniation with radiculopathy Status: Acute Review of Systems Constitutional: No chills, No fever Respiratory: No cough, No shortness of breath, No sputum, No wheezing Cardiac: No chest pain, No orthopnea Abdomen: No diarrhea, No nausea, No pain, No vomiting Musculoskeletal: + joint pain, No muscle pain Female : No dysuria, No urinary frequency Neurologic: No memory loss, No paralysis, No weakness Psychiatric: No anhedonism, No depression symptoms Objective Vital Signs Date Time Temp Pulse Resp B/P Pulse Ox O2 Delivery O2 Flow Rate FiO2 08/08/16 12:37 78 97 08/08/16 11:48 36.6 73 16 118/74 93 Nasal Cannula 1.0 08/08/16 09:43 94 Nasal Cannula 2.0 08/08/16 08:35 99 Nasal Cannula 2.0 08/08/16 07:40 36.5 76 14 135/75 99 Nasal Cannula 2.0 08/08/16 07:30 Nasal Cannula 2.0 08/08/16 02:55 36.5 86 16 135/77 97 Nasal Cannula 3.0 08/07/16 23:59 Nasal Cannula 3.0 08/07/16 23:34 36.5 90 16 130/78 98 Nasal Cannula 3.0 08/07/16 18:50 36.5 101 18 131/80 96 Nasal Cannula 3.0 08/07/16 17:50 37.1 104 16 124/74 93 Nasal Cannula 3.0 08/07/16 16:50 36.3 88 16 154/83 96 Nasal Cannula 3.0 08/07/16 16:20 34.8 90 16 156/84 97 Nasal Cannula 2.0 08/07/16 15:50 93 Nasal Cannula 3.0 08/07/16 15:50 36.4 91 18 146/81 93 Nasal Cannula 3.0 08/07/16 15:50 93 Nasal Cannula 3.0 08/07/16 15:30 86 17 125/82 92 Nasal Cannula 3 08/07/16 15:15 83 18 131/77 92 Nasal Cannula 3 Physical Exam General Appearance: WD/WN, no apparent distress Eyes: normal inspection, PERRL, EOMI, sclerae normal Neck: supple, no adenopathy, thyroid normal, no JVD Respiratory/Chest: chest non-tender, lungs clear, normal breath sounds, no respiratory distress Cardiovascular: regular rate, rhythm, no edema, no gallop, no JVD Abdomen: normal bowel sounds, non tender, soft, no organomegaly Extremities: normal range of motion, non-tender Neurologic/Psychiatric: alert, oriented x 3 Laboratory Results Last 24 Hours Test 08/07/16 18:15 08/08/16 06:05 White Blood Count 12.70 K/uL 7.05 K/uL Red Blood Count 4.10 M/uL 4.03 M/uL Hemoglobin 12.3 g/dL 12.0 g/dL Hematocrit 38.1 % 37.9 % Mean Corpuscular Volume 92.9 fL 94.0 fL Mean Corpuscular Hemoglobin 30.0 pg 29.8 pg Mean Corpuscular Hemoglobin Concent 32.3 g/dl 31.7 g/dl Platelet Count 224 K/uL 222 K/uL Mean Platelet Volume 8.8 fL 8.9 fL Neutrophils (%) (Auto) 91.1 % Lymphocytes (%) (Auto) 4.0 % Monocytes (%) (Auto) 4.6 % Eosinophils (%) (Auto) 0.0 % Basophils (%) (Auto) 0.1 % Neutrophils # (Auto) 11.57 K/uL Lymphocytes # (Auto) 0.51 K/uL Monocytes # (Auto) 0.58 K/uL Eosinophils # (Auto) 0.00 K/uL Basophils # (Auto) 0.01 K/uL RDW Standard Deviation 43.9 fL 45.3 fL RDW Coefficient of Variation 12.9 % 13.1 % Immature Granulocyte % (Auto) 0.2 % Immature Granulocyte # (Auto) 0.03 K/uL Sodium Level 141 mmol/L 143 mmol/L Potassium Level 4.3 mmol/L 3.7 mmol/L Chloride Level 106 mmol/L 106 mmol/L Carbon Dioxide Level 29 mmol/L 33 mmol/L Anion Gap 6.0 mmol/L 4.0 mmol/L Blood Urea Nitrogen 11 mg/dl 10 mg/dl Creatinine 0.75 mg/dl 0.81 mg/dl Est Creatinine Clear Calc Drug Dose 67.1 ml/min 62.1 ml/min Estimated GFR () 89.1 81.2 Estimated GFR (Non- 76.9 70.1 BUN/Creatinine Ratio 14.2 12.1 Random Glucose 183 mg/dl 118 mg/dl Calcium Level 8.2 mg/dl 8.2 mg/dl Assessment and Plan Pt is a 76 yo female who underwent left total shoulder arthroplasty and consulted to our services for post op management Shoulder pain s/p total shoulder arthroplasty POD # 1 , pain controlled, dispo and DVT ppx per primary team. CBC Hg 12, appropriate drip fror surgery involved Dyslipidemia - Cont statin Hypothyroidism - Cont synthroid GERD - Cont zantac and protonix OA stable Pt is FULL CODE Medicine team will SIGN OFF at this time. Please call for further questions.
[2016-08-08] MEDS: CALCIUM CARBONATE 1250MG TAB PO SCH (22:01)
[2016-08-08] MEDS: SENNA 8.6 MG TAB PO SCH (22:01)
[2016-08-08] MEDS: ATORVASTATIN 20 MG TAB PO SCH (22:01)
[2016-08-09] VITALS (7 sets, daily range): BP systolic 133–157; BP diastolic 77–87; PULSE 81–94; TEMP 36.5–36.7; O2SAT 88–99
[2016-08-09] MEDS: LEVOTHYROXINE 100 MCG TAB PO SCH (05:53)
[2016-08-09] MEDS: ACETAMINOPHEN 500 MG TAB PO SCH ×3 (05:53→21:48)
[2016-08-09] MEDS: D5W AND 1/2NSS 1,000 ML IV SCH (05:54)
[2016-08-09 06:31] LABS: HEMATOCRIT 37.4 % (37-47); MEAN CELL VOLUME 95.9 fL (80-100); MEAN CORPUSCULAR HEMOGLOBIN 31.3 pg (25-34); MEAN CORPUSCULAR HGB CONC 32.6 g/dl (32-36); PLATELET COUNT 214 K/uL (130-400)
[2016-08-09 07:27] LABS: BUN/CREATININE RATIO 14.2 (10-20); CALCIUM 8.5 mg/dl (8.5-10.1); CREATININE 0.98 mg/dl (0.60-1.20); POTASSIUM 4.3 mmol/L (3.5-5.1)
--- NOTE | 2016-08-09 07:48 | Orthopedic Progress Note ---
Orthopedic Progress Note Date of Service August 09, 2016. Subjective Post OP Day: 2 Reports: feeling well, pain controlled w PO medications, Denies: SOB, calf pain , chest pain, complaints, light headedness, nausea / vomiting Objective N/V intact, capillary refill less than 2 sec., incision C/D/I, A&O x3 Sling in tact, fingers/ wrist mobile. Date Time Temp Pulse Resp B/P Pulse Ox O2 Delivery O2 Flow Rate FiO2 08/09/16 07:05 96 Nasal Cannula 1.0 08/09/16 07:01 36.5 94 20 139/77 96 Nasal Cannula 1.0 08/08/16 23:45 Nasal Cannula 1.0 08/08/16 23:45 36.7 80 18 136/79 97 Room Air 08/08/16 15:50 90/60 08/08/16 15:50 136/68 08/08/16 15:36 93 Room Air 08/08/16 15:18 34.8 86 16 84/54 97 Nasal Cannula 1.0 08/08/16 12:37 78 97 08/08/16 11:48 36.6 73 16 118/74 93 Nasal Cannula 1.0 08/08/16 09:43 94 Nasal Cannula 2.0 08/08/16 08:35 99 Nasal Cannula 2.0 Laboratory Results 24 Hours: Test 08/09/16 05:58 Hematocrit 37.4 % Hemoglobin 12.2 g/dL Assessment & Plan Assessment: POD #2, Left TSA, biceps tenodesis. Plan: PT/ OT D/C planning- Rehab, patient lives alone, to today or when bed avail. As per medicine. Inhouse Planning Pain Management: PO Tylenol, Oxy IR DVT Prophylaxis: TEDs, SCDs Discharge Planning Discharge Planning: rehab hospital Pain Management: PO Tylenol, Oxy IR DVT Prophylaxis: TEDs, SCDs Therapy: Physical Therapy, Occupational Therapy
[2016-08-09] MEDS ORDERED: ACET-1138 PO (07:52)
[2016-08-09] MEDS ORDERED: MLXC PO (07:52)
[2016-08-09] MEDS ORDERED: SERT-234 PO (07:52)
[2016-08-09] MEDS ORDERED: ATOR-22 PO (07:52)
[2016-08-09] MEDS ORDERED: MOMLX PO (07:52)
[2016-08-09] MEDS ORDERED: DLCS PR (07:52)
[2016-08-09] MEDS ORDERED: ZNTT/150 PO (07:52)
[2016-08-09] MEDS ORDERED: CALCTAB5 PO (07:52)
[2016-08-09] MEDS ORDERED: CLC100 PO (07:52)
[2016-08-09] MEDS ORDERED: PRLSR20 PO (07:52)
[2016-08-09] MEDS ORDERED: SYN100 PO (07:52)
[2016-08-09] MEDS ORDERED: RXC5 PO (07:52)
[2016-08-09] MEDS ORDERED: MULTCHW PO (07:52)
--- NOTE | 2016-08-09 07:54 | Discharge Instructions ---
Discharge Instructions Date of Service August 09, 2016. Admission Reason for Admission: Left Shoulder Degenerative Joint Disease, Clacific Discharge Discharge Diagnosis / Problem: Left TSA, biceps tenodesis Discharge Goals Goal(s): Improve function Activity Recommendations Activity Level: Assistance Required . Additional Information Patient informed of condition: Yes Advance Directives: Yes DNR: No Level of Care: Acute Rehab Communicable Disease: No Prognosis: Improving Jarquin Catheter: No Instructions / Follow-Up Instructions / Follow-Up ACTIVITY RECOMMENDATIONS: SELF CARE INSTRUCTIONS AFTER TOTAL SHOULDER ARTHROPLASTY A. You may do daily exercises as taught in physical therapy while in hospital. No lifting with the operative arm. Please schedule your outpatient physical therapy appointment to begin within 2-3 days after leaving the hospital. Specific restrictions will be written on your physical therapy prescription that is provided to you. B. You are to wear your sling/immobilizer at all times EXCEPT when performing your daily exercises, participating in physical therapy and for hygiene purposes. C. You may perform dry, daily dressing changes. Please keep your incision covered. You may shower 48 hours after surgery. Do not apply soap or any ointment/ lotions directly over incision. Do not soak incision in bath tub/swimming pool. D. You may use ice as needed to operative shoulder. SPECIAL CARE INSTRUCTIONS: MEDICATION INSTRUCTIONS: *It is recommended you take Aspirin 325mg daily for four weeks post-op. VERY IMPORTANT TO READ AND REVIEW A. There are a few signs you need to watch for after you are home. Call [facility] at [phone] if you experience any of the followin. Increased severe shoulder pain. Some pain is expected especially when you exercise. 2. Increased swelling in you shoulder or arm; pain or swelling in either upper extremity. 3. Any fluid drainage from the incision. 4. Shortness of breath or chest pain. B. Please call [facility] at [phone] if you have any questions or concerns about your operation or recovery. C. Call your physician if: 1. Temperature is greater than 101 degrees (F). 2. Pain is not relieved by prescribed pain medications. 3. Increase drainage or redness from incision. 4. Unanswered questions or concerns. FOLLOW UP VISIT: Please call [facility] at [phone] to schedule a follow up appointment with Dr. Dunbar or his PA in 12-14 days from your surgery date. Current Hospital Diet Patient's current hospital diet: Regular Diet Discharge Diet Recommended Diet: Regular Diet Procedures Procedures Performed: Left Total Shoulder Arthroplasty Pending Studies Studies pending at discharge: no Laboratory Results Hemoglobin A1c Test 07/26/16 15:14 Range/Units Estimated Average Glucose 128 mg/dl Hemoglobin A1c 6.1 H 4.5-5.6 % Medical Emergencies . Who to Call and When: Medical Emergencies: If at any time you feel your situation is an emergency, please call 911 immediately. . Non-Emergent Contact Non-Emergency issues call your: Primary Care Provider . . "Provider Documentation" section prepared by Sanket Cheatham. . Core Measure Problem Core Measures: VTE VTE Core Measures Date of VTE Diagnosis: August 09, 2016 Time of VTE Diagnosis: 07:53 Reason no anticoag overlap I/P: Treatment not indicated Reason no anticoag overlap @DC: Treatment not indicated [place] Drug Monitoring Program Search Results: patient reviewed within database, no issues identified
[2016-08-09] MEDS: PANTOprazole SOD 40 MG TAB PO SCH (08:35)
[2016-08-09] MEDS: SERTRALINE HCL 100 MG TAB PO SCH (08:35)
[2016-08-09] MEDS: OXYCODONE HCL IR 5 MG TAB (IMMEDIATE RELEASE) PO PRN (08:35)
[2016-08-09] MEDS: MULTIVITAMIN TAB PO SCH (08:35)
[2016-08-09] MEDS: RANITIDINE HCL 150 MG TAB PO SCH ×2 (09:09→21:48)
[2016-08-09] MEDS: DOCUSATE SODIUM 100 MG CAP PO SCH ×2 (09:09→21:48)
[2016-08-09] MEDS ORDERED: ACETAMINOPHEN 500 MG TAB PO ONE (14:10)
[2016-08-09] MEDS: ATORVASTATIN 20 MG TAB PO SCH (21:48)
[2016-08-09] MEDS: CALCIUM CARBONATE 1250MG TAB PO SCH (21:48)
[2016-08-09] MEDS: SENNA 8.6 MG TAB PO SCH (21:48)
[2016-08-10] MEDS: LEVOTHYROXINE 100 MCG TAB PO SCH (05:45)
[2016-08-10] MEDS: ACETAMINOPHEN 500 MG TAB PO SCH ×3 (05:45→21:26)
[2016-08-10 07:15] VITALS: O2SAT 96
[2016-08-10 07:26] VITALS: BP 143/80; PULSE 90; TEMP 36.7; O2SAT 94
--- NOTE | 2016-08-10 08:40 | Orthopedic Progress Note ---
Orthopedic Progress Note Date of Service August 10, 2016. Subjective Post OP Day: 3 Reports: feeling well, pain controlled w PO medications, Denies: complaints Objective N/V intact, capillary refill less than 2 sec., incision C/D/I, A&O x3 left hand fingers are mobile. Sensation intact distally LUE. Sling in place. Date Time Temp Pulse Resp B/P Pulse Ox O2 Delivery O2 Flow Rate FiO2 08/10/16 07:26 36.7 90 17 143/80 94 Room Air 08/10/16 07:15 96 Room Air 08/10/16 00:05 Room Air 95 08/09/16 22:55 36.6 89 17 157/87 99 Nasal Cannula 1.0 08/09/16 15:50 36.7 86 16 133/82 97 Nasal Cannula 1.0 08/09/16 15:35 Nasal Cannula 1.0 08/09/16 10:09 36.5 94 20 93 Nasal Cannula 08/09/16 09:11 93 Nasal Cannula 1.0 08/09/16 09:10 88 Room Air Assessment & Plan Assessment: POD #3, Left TSA, biceps tenodesis. Plan: PT/ OT D/C planning- Rehab, patient lives alone, to when bed avail. As per medicine. Inhouse Planning Pain Management: PO Tylenol, Oxy IR DVT Prophylaxis: TEDs, SCDs Discharge Planning Discharge Planning: rehab hospital Pain Management: PO Tylenol, Oxy IR DVT Prophylaxis: TEDs, SCDs Therapy: Physical Therapy, Occupational Therapy
[2016-08-10] MEDS: DOCUSATE SODIUM 100 MG CAP PO SCH ×2 (09:06→21:24)
[2016-08-10] MEDS: PANTOprazole SOD 40 MG TAB PO SCH (09:06)
[2016-08-10] MEDS: MULTIVITAMIN TAB PO SCH (09:07)
[2016-08-10] MEDS: SERTRALINE HCL 100 MG TAB PO SCH (09:07)
[2016-08-10] MEDS: RANITIDINE HCL 150 MG TAB PO SCH ×2 (09:07→21:25)
[2016-08-10 15:55] VITALS: BP 145/84; PULSE 95; TEMP 36.6; O2SAT 96
[2016-08-10] MEDS: OXYCODONE HCL IR 5 MG TAB (IMMEDIATE RELEASE) PO PRN (17:41)
[2016-08-10] MEDS: ATORVASTATIN 20 MG TAB PO SCH (21:25)
[2016-08-10] MEDS: SENNA 8.6 MG TAB PO SCH (21:25)
[2016-08-10] MEDS: CALCIUM CARBONATE 1250MG TAB PO SCH (21:25)
[2016-08-10 23:50] VITALS: BP 167/98; PULSE 86; TEMP 36.8; O2SAT 94
[2016-08-11 04:31] VITALS: BP 153/90; PULSE 88
[2016-08-11] MEDS: ACETAMINOPHEN 500 MG TAB PO SCH ×3 (06:04→21:25)
[2016-08-11] MEDS: LEVOTHYROXINE 100 MCG TAB PO SCH (06:05)
[2016-08-11 07:15] VITALS: BP 166/92; PULSE 80; TEMP 36.8; O2SAT 95
[2016-08-11] MEDS: DOCUSATE SODIUM 100 MG CAP PO SCH ×2 (08:48→21:23)
[2016-08-11] MEDS: MULTIVITAMIN TAB PO SCH (08:48)
[2016-08-11] MEDS: SERTRALINE HCL 100 MG TAB PO SCH (08:49)
[2016-08-11] MEDS: PANTOprazole SOD 40 MG TAB PO SCH (08:49)
[2016-08-11] MEDS: RANITIDINE HCL 150 MG TAB PO SCH ×2 (08:49→21:23)
--- NOTE | 2016-08-11 10:23 | Orthopedic Progress Note ---
Orthopedic Progress Note Date of Service August 11, 2016. Subjective Post OP Day: 4 Reports: pain controlled w PO medications, Denies: complaints Objective N/V intact, dressing C/D/I, A&O x3 fingers mobile Date Time Temp Pulse Resp B/P Pulse Ox O2 Delivery O2 Flow Rate FiO2 08/11/16 07:15 36.8 80 17 166/92 95 Room Air 08/11/16 04:31 88 153/90 08/11/16 00:00 Room Air 08/10/16 23:50 36.8 86 18 167/98 94 Room Air 08/10/16 15:55 36.6 95 18 145/84 96 Room Air 08/10/16 15:15 Room Air Assessment & Plan Assessment: POD # 4 , Left TSA, biceps tenodesis. Plan: PT/ OT D/C planning- Rehab, patient lives alone, to when bed avail. As per medicine. Inhouse Planning Pain Management: PO Tylenol, Oxy IR DVT Prophylaxis: TEDs, SCDs Discharge Planning Discharge Planning: rehab hospital (still awaiting bed ) Pain Management: PO Tylenol, Oxy IR DVT Prophylaxis: TEDs, SCDs Therapy: Physical Therapy, Occupational Therapy
[2016-08-11 11:30] VITALS: BP 141/94; PULSE 79; TEMP 36.8; O2SAT 95
[2016-08-11 15:15] VITALS: BP 153/79; PULSE 87; TEMP 37; O2SAT 94
[2016-08-11] MEDS: ATORVASTATIN 20 MG TAB PO SCH (21:24)
[2016-08-11] MEDS: SENNA 8.6 MG TAB PO SCH (21:24)
[2016-08-11] MEDS: CALCIUM CARBONATE 1250MG TAB PO SCH (21:24)
[2016-08-11 23:06] VITALS: BP 158/93; PULSE 78; TEMP 36.8; O2SAT 95
[2016-08-12] MEDS: LEVOTHYROXINE 100 MCG TAB PO SCH (05:36)
[2016-08-12] MEDS: ACETAMINOPHEN 500 MG TAB PO SCH ×3 (05:37→21:30)
[2016-08-12 06:32] VITALS: BP 171/102; PULSE 81; TEMP 36.7; O2SAT 93
[2016-08-12 06:40] VITALS: BP 169/73
--- NOTE | 2016-08-12 06:48 | Orthopedic Progress Note ---
Orthopedic Progress Note Date of Service August 12, 2016. Subjective Post OP Day: 5 Reports: feeling well, pain controlled w PO medications, Denies: complaints Additional Notes: Discussion about going home vs. continuing to wait for a bed to be available at [facility]. Patient is concerned with going home because of living alone. States she would feel more comfortable if she was in [facility] for a short rehab stay prior to going home by herself. Objective N/V intact, capillary refill less than 2 sec., incision C/D/I, A&O x3 LUE in a sling. Left shoulder incision is well approximated. No drainage. No erythema. Left hand: fingers are mobile. Date Time Temp Pulse Resp B/P Pulse Ox O2 Delivery O2 Flow Rate FiO2 08/12/16 06:40 169/73 08/12/16 06:32 36.7 81 18 171/102 93 Room Air 08/11/16 23:20 Room Air 08/11/16 23:06 36.8 78 16 158/93 95 Room Air 08/11/16 15:20 Room Air 08/11/16 15:15 37.0 87 18 153/79 94 Room Air 08/11/16 11:30 36.8 79 17 141/94 95 Room Air 08/11/16 07:55 Room Air 08/11/16 07:15 36.8 80 17 166/92 95 Room Air Assessment & Plan Assessment: POD # 5 , Left TSA, biceps tenodesis. Plan: PT/ OT D/C planning- Rehab, patient lives alone, to when bed avail. As per medicine. Inhouse Planning Pain Management: PO Tylenol, Oxy IR DVT Prophylaxis: TEDs, SCDs Discharge Planning Discharge Planning: rehab hospital (still awaiting bed ) Pain Management: PO Tylenol, Oxy IR DVT Prophylaxis: TEDs, SCDs Therapy: Physical Therapy, Occupational Therapy
[2016-08-12] MEDS: DOCUSATE SODIUM 100 MG CAP PO SCH ×2 (07:33→21:00)
[2016-08-12] MEDS: SERTRALINE HCL 100 MG TAB PO SCH (07:33)
[2016-08-12] MEDS: RANITIDINE HCL 150 MG TAB PO SCH ×2 (07:33→21:28)
[2016-08-12] MEDS: MULTIVITAMIN TAB PO SCH (07:34)
[2016-08-12] MEDS: PANTOprazole SOD 40 MG TAB PO SCH (07:34)
[2016-08-12 10:45] VITALS: BP 129/87
[2016-08-12 15:36] VITALS: BP 148/89; PULSE 82; TEMP 36.9; O2SAT 93
[2016-08-12] MEDS: SENNA 8.6 MG TAB PO SCH (21:00)
[2016-08-12] MEDS: ATORVASTATIN 20 MG TAB PO SCH (21:28)
[2016-08-12] MEDS: CALCIUM CARBONATE 1250MG TAB PO SCH (21:28)
[2016-08-12 23:15] VITALS: BP 158/80; PULSE 82; TEMP 36.7; O2SAT 96
[2016-08-13] MEDS: LEVOTHYROXINE 100 MCG TAB PO SCH (05:42)
[2016-08-13] MEDS: ACETAMINOPHEN 500 MG TAB PO SCH ×2 (05:42→13:46)
[2016-08-13 07:44] VITALS: BP 148/82; PULSE 81; TEMP 36.7; O2SAT 93
[2016-08-13 07:46] VITALS: O2SAT 93
--- NOTE | 2016-08-13 08:01 | Orthopedic Progress Note ---
Orthopedic Progress Note Date of Service August 13, 2016. Subjective Post OP Day: Reports: feeling well, pain controlled w PO medications, Denies: complaints Objective incision C/D/I, CMS intact Sling in place... Date Time Temp Pulse Resp B/P Pulse Ox O2 Delivery O2 Flow Rate FiO2 08/13/16 07:46 93 Room Air 08/13/16 07:44 36.7 81 20 148/82 93 Room Air 08/13/16 07:32 Room Air 08/12/16 23:20 Room Air 08/12/16 23:15 36.7 82 18 158/80 96 Room Air 08/12/16 15:36 36.9 82 18 148/89 93 Room Air 08/12/16 15:00 Room Air 08/12/16 10:45 129/87 Assessment & Plan Assessment: POD # 6 , Left TSA, biceps tenodesis. Plan: PT/ OT D/C planning- Rehab, patient lives alone, to when bed avail. Medical Management per Hospitalist service Inhouse Planning Pain Management: PO Tylenol, Oxy IR DVT Prophylaxis: TEDs, SCDs Discharge Planning Discharge Planning: rehab hospital (still awaiting bed ) Pain Management: PO Tylenol, Oxy IR DVT Prophylaxis: TEDs Therapy: Physical Therapy, Occupational Therapy
[2016-08-13] MEDS: DOCUSATE SODIUM 100 MG CAP PO SCH (08:47)
[2016-08-13] MEDS: RANITIDINE HCL 150 MG TAB PO SCH (08:47)
[2016-08-13] MEDS: MULTIVITAMIN TAB PO SCH (08:48)
[2016-08-13] MEDS: SERTRALINE HCL 100 MG TAB PO SCH (08:48)
[2016-08-13] MEDS: PANTOprazole SOD 40 MG TAB PO SCH (08:48)
--- NOTE | 2016-08-15 15:32 | DISCHARGE SUMMARY ---
DISCHARGE DIAGNOSIS: Degenerative joint disease, left shoulder. SECONDARY DIAGNOSES: Hypercholesterolemia, hypothyroidism, osteoarthritis, sciatica, GERD, obesity, history of uterine carcinoma. CONSULTS: Chema Lopez D.O. COMPLICATIONS: None. PROCEDURES: Left total shoulder arthroplasty and biceps tenodesis by Dr. Dunbar on 08/07/2016. BRIEF HISTORY: As dictated in history and physical. HOSPITAL SUMMARY: The patient was admitted on the above-noted date and had the above-noted surgery performed which he tolerated well. On the first postoperative day, patient was feeling well and pain was controlled. Neurovascularly intact. Cap refill is less than 2 seconds. Dressings were clean, dry and intact and fingers were mobile. Sling was intact. Vital signs are stable. She is afebrile. Hemoglobin was 12.0. She was started on physical therapy protocol and continued on pain management. The patient was planning for rehab facility of some type since she lived alone and case management started working on getting her to a rehab facility. By her second postoperative day, she was feeling well, pain was controlled. She had no other complaints. The incision was benign and fingers were mobile and sensation was intact. Vital signs were stable. She was afebrile. Hemoglobin was 12.2 and plans were for [facility] when a bed was available. Over the next several days, the patient remained stable and she was awaiting bed availability. By 08/13/2016 she was feeling well and pain was controlled. The wound remained benign. Sling was in place. Vital signs were stable. A bed was finally available for her to go to [facility] and she was transferred to [facility] for further physical therapy and care on 08/13/2016. For further review, please see chart. LAB AND X-RAY DATA: As per chart. DISCHARGE INSTRUCTIONS: The patient was discharged to [facility] on 08/13/2016. DIET: Regular. ACTIVITY: Follow TSA shoulder instructions as noted and follow up with Dr. Dunbar in 2 weeks. The patient to call for appointment if one has not been made for you. DISCHARGE MEDICATIONS: Acetaminophen 1000 mg p.o. q. 8 hours, Bisacodyl 10 mg p.o. AR daily p.r.n., docusate sodium 100 mg p.o. b.i.d., levothyroxine 100 mcg p.o. daily, milk of magnesia 30 mL p.o. q. 6 p.r.n., oxycodone 5-10 mg p.o. q. 4 hours p.r.n. pain, aluminum magnesium simethicone suspension 30 mL p.o. q. 4 hours p.r.n. for dyspepsia. Resume taking atorvastatin 20 mg p.o. q.p.m., Caltrate 600 one tab p.o. at bedtime, multiple vitamin 1 tab p.o. q.a.m., omeprazole 20 mg p.o. b.i.d., Zantac 150 mg p.o. b.i.d., sertraline 100 mg p.o. q.a.m. Stop taking acetaminophen.
[2017-01-08] MEDS ORDERED: ACET-1256 PO (10:31)
[2017-01-08] MEDS ORDERED: CALC600T37 PO (10:31)
[2017-01-08] MEDS ORDERED: SERT1TAB68 PO (10:31)
[2017-01-08] MEDS ORDERED: ZNTT/150 PO (10:31)
[2017-01-08] MEDS ORDERED: PRLSR20 PO (10:31)
[2017-01-08] MEDS ORDERED: ATOR-22 PO (10:31)
[2017-01-08] MEDS ORDERED: MULT-506 PO (10:31)
[2017-01-08] MEDS ORDERED: LEVO100T7 PO (10:31)
== END 2016-08-13 14:30 | DRG 483 ==
LOC: ENRESERVTM → ENRESERVDT → C.ACU 08:16 → C.3E 08:25
PROVIDERS: ADMIT Orthopaedic Surgery Sports Medicine; ATTEND Orthopaedic Surgery Sports Medicine
PROC: 0LS40ZZ Reposition Left Upper Arm Tendon, Open Approach (ICD-10-PCS; principal; 2016-08-07 10:15)
PROC: 0RRK0JZ Replacement of Left Shoulder Joint with Synthetic Substitute, Open Approach (ICD-10-PCS; principal; 2016-08-07 10:15)
DX: M19.012 Primary osteoarthritis, left shoulder (principal); Z68.41 Body mass index [BMI] 40.0-44.9, adult; E78.00 Pure hypercholesterolemia, unspecified; E03.9 Hypothyroidism, unspecified; M19.90 Unspecified osteoarthritis, unspecified site; E78.5 Hyperlipidemia, unspecified; K21.9 Gastro-esophageal reflux disease without esophagitis; M54.30 Sciatica, unspecified side; K44.9 Diaphragmatic hernia without obstruction or gangrene; E66.9 Obesity, unspecified; Z79.899 Other long term (current) drug therapy; Z88.6 Allergy status to analgesic agent; Z85.42 Personal history of malignant neoplasm of other parts of uterus; Z87.891 Personal history of nicotine dependence; Z96.643 Presence of artificial hip joint, bilateral; Z90.710 Acquired absence of both cervix and uterus; Z98.51 Tubal ligation status; Z80.9 Family history of malignant neoplasm, unspecified; Z83.3 Family history of diabetes mellitus; Z82.49 Family history of ischemic heart disease and other diseases of the circulatory system; Z84.1 Family history of disorders of kidney and ureter

== ENCOUNTER → 2016-11-29 | Outpatient (CLI) | payer OTHER ==
[~2016-11-29] MED LIST changes: +ACET-1138 PO; -ACET-1256 PO; -ACETAMINOPHEN 500 MG TAB PO SCH; -CEFAZOLIN 2000 MG/60 ML D5W 60 ML IV SCH; +CLC100 PO; -CeleBREX 200 MG CAP PO SCH; -DEXAMETHASONE 4 MG TAB PO SCH; -DEXAMETHASONE SOD INJ 4 MG/ML VIAL ONE; +DLCS PR; -FAMOTIDINE 20 MG TAB PO SCH; -FENTANYL CITRATE INJ 50 MCG/1 ML 2 ML VIAL ONE; -GABAPENTIN 300 MG CAP PO SCH; -GLYCOPYRROLATE INJ 0.2 MG/ML VIAL ONE; -LACTATED RINGER'S 1000ML 1,000 ML IV SCH; -LEVO100T35 PO; -LIDOCAINE HCL 2% 2 ML VIAL (20MG/ML) ONE; -METOCLOPRAMIDE HCL 10 MG TAB PO SCH; -MIDAZOLAM HCL 1 MG/ML 2ML VIAL ONE; +MLXC PO; +MOMLX PO; -NEOSTIGMINE METHYLSULFATE 5 MG/5 ML SYR ONE; -ONDANSETRON INJ 2 MG/ML 2 ML VIAL ONE; -PROPOFOL IV EMULSION 10 MG/ML 20 ML VIAL IV ONE; -ROCURONIUM BROMIDE 10 MG/ML 5 ML VIAL ONE; +RXC5 PO; +SYN100 PO
--- NOTE | 2016-11-29 16:09 | MAMMOGRAPHY REPORT ---
BILATERAL DIGITAL SCREENING MAMMOGRAM WITH CAD: 11/29/2016 CLINICAL HISTORY: Routine screening. Patient has no complaints. TECHNIQUE: Current study was also evaluated with a Computer Aided Detection (CAD) system. Bilateral CC and MLO views were obtained. COMPARISON: Comparison is made to exams dated: 11/29/2015 mammogram, 11/03/2014 mammogram, 10/22/2013 ma mmogram, 10/19/2012 mammogram, 10/18/2011 mammogram, and 10/15/2010 mammogram - [facility] BREAST COMPOSITION: There are scattered areas of fibroglandular density in both breasts. FINDINGS: No suspicious masses, calcifications, or areas of architectural distortion are noted in ei ther breast. There has been no significant interval change compared to prior exams. Scattered bilate ral benign-appearing calcifications are again noted. IMPRESSION: ACR BI-RADS CATEGORY 2: BENIGN There is no mammographic evidence of malignancy. A 1 year screening mammogram is recommended. The pa tient will receive written notification of the results. Approximately 10% of breast cancers are not detected with mammography. A negative mammographic report should not delay biopsy if a clinically suggestive mass is present. Zohra Sena M.D. /:11/29/2016 14:36:59 Manager Learning: Carli BOLIVAR(Anna Marie)(M), [facility] letter sent: Normal 1/2 BI-RADS Code: ACR BI-RADS Category 2: Benign
== END | disposition home or self-care (01) ==
LOC: C.MAMM 11:15
PROVIDERS: ATTEND Family Medicine
DX: Z12.31 Encounter for screening mammogram for malignant neoplasm of breast (principal)

== ENCOUNTER → 2017-04-08 | Outpatient (CLI) | payer OTHER ==
[~2017-04-08] MED LIST changes: -ACET-1138 PO; +ACET-1256 PO; +CALC600T37 PO; -CALCTAB5 PO; -CLC100 PO; +CYM/30 PO; -DLCS PR; +LEVO100T7 PO; -MLXC PO; -MOMLX PO; +MULT-506 PO; -MULTCHW PO; -RXC5 PO; -SERT-234 PO; +SERT1TAB68 PO; -SYN100 PO
--- NOTE | 2017-04-08 10:12 | DIAGNOSTIC IMAGING REPORT ---
L-SPINE MIN 4 VIEWS ROUTINE HISTORY: 77 years-old Female LUMBAGO chronic low back pain COMPARISON: Lumbar spine radiographs 05/19/2015, lumbar spine MR 06/05/2015 TECHNIQUE: 5 views of the lumbar spine FINDINGS: Mild dextroscoliosis of the lumbar spine. Postoperative changes compatible with posterior decompression with interbody dipti and screw fusion at L2-L5. 7 mm retrolisthesis L1 on L2 with 6 mm anterolisthesis L4 on L5 and 5 mm anterolisthesis L3 on L4. The bones appear moderately demineralized. Severe intervertebral disc space narrowing at L5-S1. Multilevel facet arthrosis. Severe intervertebral disc space narrowing is also present at L1-L2 and also at T11-T12. No evidence of hardware fracture or loosening. Bilateral hip arthroplasties are partially imaged. Moderate stool volume of the colon. IMPRESSION: 1. No acute fracture of the lumbar spine. 2. Prior posterior decompression with interbody dipti and screw fusion at L2-L5. No evidence of hardware fracture or loosening. 3. Retrolisthesis of L1 on L2 with grade 1 anterolisthesis L3 on L4 and L4 on L5 as above. 4. Multilevel general changes with moderate bone demineralization. The above report was generated using voice recognition software. It may contain grammatical, syntax or spelling errors. Electronically signed by: Joss Wells M.D. 04/08/2017 10:11 AM Dictated Date/Time: 04/08/2017 10:07 AM
== END | disposition home or self-care (01) ==
LOC: C.RADBC 09:34
PROVIDERS: ATTEND Physician Assistant Medical
DX: M54.5 Low back pain (principal)

== ENCOUNTER → 2017-04-29 | Outpatient (CLI) | payer OTHER ==
[~2017-04-29] MED LIST changes: +RANI150T85 PO; -SERT1TAB68 PO; +SERT50TA PO; -ZNTT/150 PO
[2017-04-29 17:48] LABS: HEMOGLOBIN 14.7 g/dL (12.0-16.0); MEAN CORPUSCULAR HEMOGLOBIN 30.1 pg (25-34); MEAN CORPUSCULAR HGB CONC 32.7 g/dl (32-36); MEAN PLATELET VOLUME 9.6 fL (7.4-10.4); PLATELET COUNT 292 K/uL (130-400); RED CELL DISTRIBUTION WIDTH CV 13.5 % (11.5-14.5); RED CELL DISTRIBUTION WIDTH SD 45.3 fL (36.4-46.3); WHITE BLOOD COUNT 6.39 K/uL (4.8-10.8)
[2017-04-29 18:07] LABS: ALBUMIN 3.8 gm/dl (3.4-5.0); ALT/SGPT 21 U/L (12-78); AST/SGOT 21 U/L (15-37); BLOOD UREA NITROGEN 18 mg/dl (7-18); CALCIUM 9.4 mg/dl (8.5-10.1); CARBON DIOXIDE 29 mmol/L (21-32); CREATININE 1.04 mg/dl (0.60-1.20); GLUCOSE 102 mg/dl (70-99); POTASSIUM 4.7 mmol/L (3.5-5.1); SODIUM 139 mmol/L (136-145)
[2017-04-29 18:17] LABS: ALKALINE PHOSPHATASE 174 U/L (45-117); TOTAL PROTEIN 7.6 gm/dl (6.4-8.2)
== END | disposition home or self-care (01) ==
LOC: C.LABBFT 14:27
PROVIDERS: ATTEND Physician Assistant Medical
DX: R41.0 Disorientation, unspecified (principal)

== ENCOUNTER 2017-05-06 16:40 | Emergency (ER) | payer OTHER ==
[~2017-05-06] VITALS: Ht 157.5 cm; Wt 97.1 kg
[~2017-05-06 16:40] MED LIST changes: -SERT50TA PO
[2017-05-06 16:42] VITALS: TEMP 36.9; Ht 157.5 cm; Wt 97.1 kg
--- NOTE | 2017-05-06 17:05 | EMERGENCY ROOM VISIT NOTE ---
History Report prepared by Robert: Gregory Soriano Under the Supervision of: Dr. Addison Esquivel M.D. First contact with patient: 16:48 Chief Complaint: OVERDOSE (ACCIDENTAL) Stated Complaint: TOOK TO MUCH MEDICINE;MEMORY LAPSE History of Present Illness The patient is a 77 year old female who presents to the Emergency Room with complaints of an accidental overdose that occurred sometime between three days ago and today. Per the patient's family, the patient has seemed more confused and agitated over the past several weeks. She lives by herself and the patient' s son fills her weekly pill organizer for the patient to make sure she takes her medications correctly. Today, the patient's family noticed that there were four days missing from her pill organizer. When they asked the patient what happened, she said that she took them but does not remember when or why. She is on Synthroid, Omeprazole, Ranitidine, Sertraline, and a Multivitamin. There was also a bottle of Tylenol on the counter, but she does not know if she took any of that. They deny seeing the patient fall at anytime. The patient denies any fevers, headache, cough, chest pain, shortness of breath, abdominal pain, nausea , vomiting, melena, hematochezia, weakness, or numbness. She denies any suicidal ideation and confusion. She notes that she did have diarrhea this morning. She denies any past medical history of stroke. Source of History: patient, family Onset: between three days ago and today Position: other (Global) Symptom Intensity: Possible Quality: other (Drug overdose) Timing: constant Associated Symptoms: + diarrhea, No LOC, No fevers, No headache, No cough, No chest pain, No SOB, No nausea, No vomiting, No abdominal pain, No melena, No hematochezia, No weakness, No numbness Review of Systems See HPI for pertinent positives & negatives. A total of 10 systems reviewed and were otherwise negative. Past Medical & Surgical Medical Problems: (1) Acute lumbar back pain (2) Arthritis of left hip (3) Mejia's Esophagus (4) Diab Elida Wo Compl, Type Ii Or Unspec Type, Uncontrolled (5) Diarrhea (6) DJD of left shoulder (7) Esophageal Reflux (8) Hyperlipidemia Nec/Nos (9) Hypertension Nos (10) Hypothyroidism Nos (11) Left knee pain (12) Lumbar pain (13) Lumbar stenosis with neurogenic claudication (14) Nausea (15) Osteoarthritis (16) Reflux Esophagitis (17) Stomach problems Surgical Problems: (1) History of hip replacement (2) History of hysterectomy (3) Tubal Ligation Status Old medical records were reviewed. Nurse's notes were reviewed and I agree with. Family History Cancer Diabetes mellitus FH: kidney disease Heart disease Hypertension Kidney disease Social History Smoking Status: Former Smoker Alcohol Use: none Drug Use: none Marital Status: Housing Status: lives alone Occupation Status: retired Current/Historical Medications Scheduled Atorvastatin (Lipitor), 20 MG PO QPM Levothyroxine Sodium (Levothyroxine Sodium), 1 TAB PO QAM Multivitamin (Multivitamin), 1 TAB PO QAM Omeprazole (Prilosec), 1 TAB PO BID Ranitidine (Zantac), 150 MG PO BID Sertraline (Zoloft), 50 MG PO QAM Scheduled PRN Acetaminophen (Tylenol), 1-2 TABS PO Q6 PRN for Pain Allergies Coded Allergies: Aspirin (Verified Adverse Reaction, Unknown, contraindicated d/t gastritis , 05/06/17) Physical Exam Vital Signs Date Time Temp Pulse Resp B/P (MAP) Pulse Ox O2 Delivery O2 Flow Rate FiO2 05/06/17 19:37 78 19 147/81 93 Room Air 05/06/17 18:26 83 18 154/84 92 Room Air 05/06/17 16:42 36.9 100 18 153/77 92 Room Air Physical Exam General: Non-ill appearing older female in no acute distress. HEENT: Normal cephalic atraumatic. Pupils are equal round and reactive to light. Extraocular movements are intact. Oropharynx is pink with moist mucous membranes. No swelling of the mouth lips or tongue. Neck: Supple with a midline trachea. No meningeal signs or stiffness, no JVD or bruits. No Stridor. Chest: Clear to auscultation bilaterally. No wheezes or rhonchi. No increased work of breathing. Heart: regular rate and rhythm. Abdomen: Soft nontender, nondistended without rebound guarding or rigidity. Extremities: No cyanosis clubbing or edema. No calf tenderness or assymetry Spine/Back. Non tender to palpation. No CVA tenderness Skin: Good turgor without rashes. Neurologic exam: Cranial nerves two through 12 are intact. Motor and sensation are intact and symmetrical throughout. Medical Decision & Procedures ER Provider Diagnostic Interpretation: Radiology results as stated below per my review and radiologist interpretation: CT SCAN OF THE BRAIN WITHOUT IV CONTRAST CLINICAL HISTORY: Change in mental status. COMPARISON STUDY: CT of the brain dated 02/24/2016. TECHNIQUE: Unenhanced axial CT scan of the brain is performed from the vertex to the skull base. A dose lowering technique was utilized adhering to the principles of ALARA. CT DOSE: 623.48 mGy.cm FINDINGS: Brain parenchyma: There are age-related involutional changes noting mild to moderate patchy subcortical and periventricular microangiopathic change. There is no hemorrhage, mass effect, or evidence of acute territorial ischemia by CT criteria. Lezama-white matter is preserved. No extra-axial fluid collection is seen. Ventricles, sulci, cisterns: Prominent secondary to involutional change. Intracranial vasculature: There is atherosclerotic calcification of the cavernous carotid and vertebral arteries. Calvarium: Unremarkable. Soft tissues: There is a small sebaceous cyst in the frontal scalp. Sinuses and mastoids: The visualized paranasal sinuses are clear. The mastoid air cells are well pneumatized. Orbits: The bony orbits are grossly intact. There is a right ocular lens implant. IMPRESSION: There is no hemorrhage, mass effect, or evidence of acute territorial ischemia by CT criteria. Electronically signed by: Doyle Kaplan M.D. 05/06/2017 5:57 PM Dictated Date/Time: 05/06/2017 5:55 PM CHEST ONE VIEW PORTABLE CLINICAL HISTORY: CHEST PAIN dyspnea COMPARISON STUDY: 07/26/2016 FINDINGS: Mild/moderate cardiomegaly. Somewhat increased in the prior exam. Moderate tortuosity thoracic aorta. Mild bibasilar atelectasis. Mid and upper lungs are clear. There is been interval left shoulder arthroplasty. IMPRESSION: Mild increase in cardiac size compared to the prior study. Mild bibasilar atelectasis. The above report was generated using voice recognition software. It may contain grammatical, syntax or spelling errors. Electronically signed by: Sanket Beckford M.D. 05/06/2017 5:16 PM Dictated Date/Time: 05/06/2017 5:15 PM Laboratory Results 05/06/17 17:15 Red Blood Count 4.66, Mean Corpuscular Volume 91.0, Mean Corpuscular Hemoglobin 30.5, Mean Corpuscular Hemoglobin Concent 33.5, Mean Platelet Volume 8.9, Neutrophils (%) (Auto) 65.3, Lymphocytes (%) (Auto) 27.0, Monocytes (%) (Auto) 6.0, Eosinophils (%) (Auto) 1.1, Basophils (%) (Auto) 0.4, Neutrophils # (Auto) 3.60, Lymphocytes # (Auto) 1.49, Monocytes # (Auto) 0.33, Eosinophils # (Auto) 0.06, Basophils # (Auto) 0.02 05/06/17 17:15 Test 05/06/17 17:15 05/06/17 17:45 White Blood Count 5.51 K/uL (4.8-10.8) Red Blood Count 4.66 M/uL (4.2-5.4) Hemoglobin 14.2 g/dL (12.0-16.0) Hematocrit 42.4 % (37-47) Mean Corpuscular Volume 91.0 fL (80-100) Mean Corpuscular Hemoglobin 30.5 pg (25-34) Mean Corpuscular Hemoglobin Concent 33.5 g/dl (32-36) Platelet Count 257 K/uL (130-400) Mean Platelet Volume 8.9 fL (7.4-10.4) Neutrophils (%) (Auto) 65.3 % Lymphocytes (%) (Auto) 27.0 % Monocytes (%) (Auto) 6.0 % Eosinophils (%) (Auto) 1.1 % Basophils (%) (Auto) 0.4 % Neutrophils # (Auto) 3.60 K/uL (1.4-6.5) Lymphocytes # (Auto) 1.49 K/uL (1.2-3.4) Monocytes # (Auto) 0.33 K/uL (0.11-0.59) Eosinophils # (Auto) 0.06 K/uL (0-0.5) Basophils # (Auto) 0.02 K/uL (0-0.2) RDW Standard Deviation 44.1 fL (36.4-46.3) RDW Coefficient of Variation 13.5 % (11.5-14.5) Immature Granulocyte % (Auto) 0.2 % Immature Granulocyte # (Auto) 0.01 K/uL (0.00-0.02) Anion Gap 7.0 mmol/L (3-11) Est Creatinine Clear Calc Drug Dose 50.9 ml/min Estimated GFR () 63.3 Estimated GFR (Non- 54.6 BUN/Creatinine Ratio 17.3 (10-20) Calcium Level 9.0 mg/dl (8.5-10.1) Total Bilirubin 0.2 mg/dl (0.2-1) Direct Bilirubin < 0.1 mg/dl (0-0.2) Aspartate Amino Transf (AST/SGOT) 21 U/L (15-37) Alanine Aminotransferase (ALT/SGPT) 22 U/L (12-78) Alkaline Phosphatase 159 U/L (45-117) Total Protein 7.1 gm/dl (6.4-8.2) Albumin 3.4 gm/dl (3.4-5.0) Lipase 88 U/L (73-393) Thyroid Stimulating Hormone (TSH) 3.450 uIu/ml (0.300-4.500) Salicylates Level < 1.7 mg/dl (2.8-20) Acetaminophen Level < 2 ug/ml (10-30) Urine Color DK YELLOW Urine Appearance CLOUDY (CLEAR) Urine pH 5.0 (4.5-7.5) Urine Specific [place] 1.027 (1.000-1.030) Urine Protein NEG (NEG) Urine Glucose (UA) NEG (NEG) Urine Ketones TRACE (NEG) Urine Occult Blood TRACE (NEG) Urine Nitrite NEG (NEG) Urine Bilirubin NEG (NEG) Urine Urobilinogen NEG (NEG) Urine Leukocyte Esterase NEG (NEG) Urine WBC (Auto) 1-5 /hpf (0-5) Urine RBC (Auto) 0-4 /hpf (0-4) Urine Hyaline Casts (Auto) 1-5 /lpf (0-5) Urine Epithelial Cells (Auto) >30 /lpf (0-5) Urine Bacteria (Auto) 1+ (NEG) Urine Crystals CALCIUM OXALATE (NONE Urine Opiates Screen NEG (NEG) Urine Methadone, Qualitative NEG (NEG) Urine Barbiturates NEG (NEG) Urine Phencyclidine (PCP) Level NEG (NEG) Ur Amphetamine/Methamphetamine NEG (NEG) MDMA (Ecstasy) Screen NEG (NEG) Urine Benzodiazepines Screen NEG (NEG) Urine Cocaine Metabolite NEG (NEG) Urine Marijuana (THC) NEG (NEG) Laboratory studies as stated above per my review. ECG Per My Interpretation Indication: toxicologic Rate (beats per minute): 91 Findings: no acute ischemic change, other (LVH, normal intervals) Comparison ECG Date: Mar 31, 2015 Change: no significant change ED Course 164: Past medical records reviewed. The patient was evaluated in room B11B, and a complete history and physical examination were performed. 1841: I rechecked the patient at this time. She is comfortable and would like to leave. 184: I discussed the patient's case with Poison Control at this time. They said that they believe the patient will be okay. 1923: Case management will talk to the patient because she does not want to stay in the hospital. 193: Upon reevaluation, the patient is resting. I discussed the results and treatment plan with her family. They verbalized agreement of the treatment plan. The patient was discharged home. Medical Decision Differentials include, but are not limited to; overdose, dementia, infection, thyroid disease, intracranial process, cardiac disease, and electrolyte or metabolic abnormality. This patient comes in as described above. She was placed in room B 11. She had increasing confusion over the last several weeks or so. She was placed in room B 11. She's had increasing confusion over the last several weeks or so. She has taken her medications incorrectly and there are a couple doses that are unaccounted for that she took between Friday and today. She is asymptomatic at present. IV access established and multiple blood testing was obtain. CAT scan of her head was obtained as well as EKG and chest x-ray and urinalysis. She was reassessed frequently. She has no significant findings on her blood work. Aspirin and Tylenol levels were negative. She has nothing to suggest that she has acute toxicologic process. I did run this by poison center as well and they agree. CAT scan of her head is unremarkable. EKG, chest x-ray, and urinalysis and did not show any acute findings. I talked to the family at length. The patient adamantly does not want to be placed anywhere. There and help her with her meds. I do case management team come talk to her as well there can help arrange to get some follow-up at home but potentially in the office of aging to do a safety check. I recommend she follow-up with her regular doctor. The family was in agreement and happy with the plan and again the patient does not want to be admitted or placed at this point. I encouraged to return if : she has worsening of symptoms or new problems or concerns ensure that she takes her medications correctly and the use a pillbox. Medication Reconcilliation Current Medication List: was personally reviewed by me Blood Pressure Screening Patient's blood pressure: Elevated blood pressure Blood pressure disposition: Referred to PCP Impression Primary Impression: Overdose Scribe Attestation The scribe's documentation has been prepared under my direction and personally reviewed by me in its entirety. I confirm that the note above accurately reflects all work, treatment, procedures, and medical decision making performed by me. Departure Information Dispostion Home / Self-Care Referrals Elmer Villalpando M.D. (PCP) Forms HOME CARE DOCUMENTATION FORM, IMPORTANT VISIT INFORMATION, WORK / SCHOOL INSTRUCTIONS Patient Instructions My [facility] [employer] [facility] Additional Instructions Rest. Drink plenty of fluids. Ensure that you take your medications correctly and use a pillbox Return if: Worsening of symptoms, fever or chills, not acting like self, any new problems or concerns Follow-up with your doctor this week for recheck
--- NOTE | 2017-05-06 17:17 | DIAGNOSTIC IMAGING REPORT ---
CHEST ONE VIEW PORTABLE CLINICAL HISTORY: CHEST PAIN dyspnea COMPARISON STUDY: 07/26/2016 FINDINGS: Mild/moderate cardiomegaly. Somewhat increased in the prior exam. Moderate tortuosity thoracic aorta. Mild bibasilar atelectasis. Mid and upper lungs are clear. There is been interval left shoulder arthroplasty. IMPRESSION: Mild increase in cardiac size compared to the prior study. Mild bibasilar atelectasis. The above report was generated using voice recognition software. It may contain grammatical, syntax or spelling errors. Electronically signed by: Sanket Beckford M.D. 05/06/2017 5:16 PM Dictated Date/Time: 05/06/2017 5:15 PM
[2017-05-06 17:25] LABS: BASO % 0.4 %; BASO ABS # 0.02 K/uL (0-0.2); EOS % 1.1 %; EOS ABS # 0.06 K/uL (0-0.5); HEMATOCRIT 42.4 % (37-47); HEMOGLOBIN 14.2 g/dL (12.0-16.0); IG# 0.01 K/uL (0.00-0.02); LYMPH ABS # 1.49 K/uL (1.2-3.4); MEAN CORPUSCULAR HEMOGLOBIN 30.5 pg (25-34); MEAN CORPUSCULAR HGB CONC 33.5 g/dl (32-36); MEAN PLATELET VOLUME 8.9 fL (7.4-10.4); MONO ABS # 0.33 K/uL (0.11-0.59); NEUT % 65.3 %; PLATELET COUNT 257 K/uL (130-400); RED CELL DISTRIBUTION WIDTH CV 13.5 % (11.5-14.5); RED CELL DISTRIBUTION WIDTH SD 44.1 fL (36.4-46.3); WHITE BLOOD COUNT 5.51 K/uL (4.8-10.8)
[2017-05-06] MEDS ORDERED: SERT50TA PO (17:41)
[2017-05-06 17:45] LABS: ALBUMIN 3.4 gm/dl (3.4-5.0); ALT/SGPT 22 U/L (12-78); BLOOD UREA NITROGEN 17 mg/dl (7-18); CARBON DIOXIDE 28 mmol/L (21-32); CREATININE 0.99 mg/dl (0.60-1.20); GLUCOSE 112 mg/dl (70-99); LIPASE 88 U/L (73-393); POTASSIUM 4.3 mmol/L (3.5-5.1); SODIUM 141 mmol/L (136-145)
[2017-05-06 17:56] LABS: ALKALINE PHOSPHATASE 159 U/L (45-117); AST/SGOT 21 U/L (15-37); TOTAL PROTEIN 7.1 gm/dl (6.4-8.2)
--- NOTE | 2017-05-06 17:58 | DIAGNOSTIC IMAGING REPORT ---
CT SCAN OF THE BRAIN WITHOUT IV CONTRAST CLINICAL HISTORY: Change in mental status. COMPARISON STUDY: CT of the brain dated 02/24/2016. TECHNIQUE: Unenhanced axial CT scan of the brain is performed from the vertex to the skull base. A dose lowering technique was utilized adhering to the principles of ALARA. CT DOSE: 623.48 mGy.cm FINDINGS: Brain parenchyma: There are age-related involutional changes noting mild to moderate patchy subcortical and periventricular microangiopathic change. There is no hemorrhage, mass effect, or evidence of acute territorial ischemia by CT criteria. Lezama-white matter is preserved. No extra-axial fluid collection is seen. Ventricles, sulci, cisterns: Prominent secondary to involutional change. Intracranial vasculature: There is atherosclerotic calcification of the cavernous carotid and vertebral arteries. Calvarium: Unremarkable. Soft tissues: There is a small sebaceous cyst in the frontal scalp. Sinuses and mastoids: The visualized paranasal sinuses are clear. The mastoid air cells are well pneumatized. Orbits: The bony orbits are grossly intact. There is a right ocular lens implant. IMPRESSION: There is no hemorrhage, mass effect, or evidence of acute territorial ischemia by CT criteria. Electronically signed by: Doyle Kaplan M.D. 05/06/2017 5:57 PM Dictated Date/Time: 05/06/2017 5:55 PM
[2017-05-06 19:37] VITALS: BP 147/81; PULSE 78; O2SAT 93
== END 2017-05-06 19:45 | disposition home or self-care (01) ==
LOC: C.EDB 16:41
DX: T50.901A Poisoning by unspecified drugs, medicaments and biological substances, accidental (unintentional), initial encounter (principal); Z79.899 Other long term (current) drug therapy; E11.9 Type 2 diabetes mellitus without complications; M19.012 Primary osteoarthritis, left shoulder; K21.9 Gastro-esophageal reflux disease without esophagitis; I10 Essential (primary) hypertension; E03.9 Hypothyroidism, unspecified; Z96.649 Presence of unspecified artificial hip joint; Z90.710 Acquired absence of both cervix and uterus; Z98.51 Tubal ligation status; Z80.9 Family history of malignant neoplasm, unspecified; Z83.3 Family history of diabetes mellitus; Z84.1 Family history of disorders of kidney and ureter; Z82.49 Family history of ischemic heart disease and other diseases of the circulatory system; Z87.891 Personal history of nicotine dependence; Z88.6 Allergy status to analgesic agent

== ENCOUNTER → 2017-05-14 | Outpatient (CLI) | payer OTHER ==
[~2017-05-14] MED LIST changes: -CALC600T37 PO; -CYM/30 PO; +GADAVIST IV PRN; +SERT50TA PO
--- NOTE | 2017-05-14 16:26 | DIAGNOSTIC IMAGING REPORT ---
MRI OF THE BRAIN WITHOUT AND WITH IV CONTRAST CLINICAL HISTORY: R41.0 [id number] COMPARISON STUDY: Noncontrast head CT dated May 06, 2017 TECHNIQUE: MRI of the brain was performed from the vertex to the skull base utilizing various T1 and T2 weighted sequences. Following the IV administration of 9 mL of Gadavist contrast, additional enhanced images were obtained. FINDINGS: Sagittal T1, axial diffusion, proton density and T2 weighted axial, coronal FLAIR, and pre and post axial T1-weighted images were acquired. These were supplemented with post gadolinium coronal T1 weighted images. No intra or extra-axial mass lesions are visualized. Axial diffusion-weighted images reveal no evidence of acute or subacute infarction. There is no evidence of ventricular dilatation. Proton density T2-weighted and FLAIR images reveal scattered foci of increased T2 signal within the white matter, likely on a small vessel basis. There are no abnormal flow voids. There is no evidence of pathologic enhancement. There is a scalp nodule within the vertex, likely representing a sebaceous cyst IMPRESSION: 1. No acute intracranial findings. 2. No evidence of acute or subacute infarction 3. No evidence of intracranial mass 4. Age-related involutional changes. Foci of increased T2 signal within the white matter likely on a small vessel basis and not unexpected for age Electronically signed by: Jairon Phillips M.D. 05/14/2017 4:24 PM Dictated Date/Time: 05/14/2017 4:22 PM
== END | disposition home or self-care (01) ==
LOC: C.MRI 15:14
PROVIDERS: ATTEND Internal Medicine
DX: R41.0 Disorientation, unspecified (principal)

== ENCOUNTER 2017-06-12 08:27 | Emergency (ER) | payer OTHER ==
[~2017-06-12] VITALS: Ht 157.5 cm; Wt 95.0 kg
[2017-06-12 08:36] VITALS: TEMP 36.4; Ht 157.5 cm; Wt 95.0 kg
[2017-06-12] MEDS ORDERED: LIDOCAINE/EPINEPHRINE 1% 20 ML VIAL INFIL ONE (09:00)
--- NOTE | 2017-06-12 09:20 | DIAGNOSTIC IMAGING REPORT ---
HEAD WITHOUT CONTRAST (CT) CT DOSE: 638.56 mGycm HISTORY: Trauma CHI s/p fall TECHNIQUE: Multiaxial CT images of the head were performed without the use of intravenous contrast. A dose lowering technique was utilized adhering to the principles of ALARA. Comparison: 05/06/2017 Findings: The paranasal sinuses and mastoid air cells are clear. The calvarium and skull base are intact. The ventricles and sulci are within normal limits. There is no mass, hematoma, midline shift, or acute infarct. Impression: No acute intracranial abnormality. The above report was generated using voice recognition software. It may contain grammatical, syntax or spelling errors. Electronically signed by: Sanket Beckford M.D. 06/12/2017 9:18 AM Dictated Date/Time: 06/12/2017 9:16 AM
--- NOTE | 2017-06-12 09:57 | EMERGENCY ROOM VISIT NOTE ---
History First contact with patient: 08:38 Chief Complaint: FALL Stated Complaint: FELL AND HIT HEAD, CUT ON HEAD History of Present Illness The patient is a 77 year old female who presents to the Emergency Room with complaints of a head injury with scalp laceration after falling off of a chair in her kitchen. The patient reports that she got up onto a chair to get something out of a high cupboard when she lost her balance. The patient reports that she was trying to get down off of the chair when she stumbled and fell backward, hitting her head on the floor. She denies any loss of consciousness, headache, neck pain, back pain or other injuries from her fall. She currently rates her overall discomfort a 5 out of 10. The patient is uncertain of her last tetanus immunization. The patient is not on any blood thinners. Review of Systems 10 system review was performed and was negative except for pertinent positives and negatives as indicated in history of present illness Past Medical/Surgical History Medical Problems: (1) Acute lumbar back pain (2) Arthritis of left hip (3) Mejia's Esophagus (4) Diab Elida Wo Compl, Type Ii Or Unspec Type, Uncontrolled (5) Diarrhea (6) DJD of left shoulder (7) Esophageal Reflux (8) Hyperlipidemia Nec/Nos (9) Hypertension Nos (10) Hypothyroidism Nos (11) Left knee pain (12) Lumbar pain (13) Lumbar stenosis with neurogenic claudication (14) Nausea (15) Osteoarthritis (16) Reflux Esophagitis (17) Stomach problems Surgical Problems: (1) History of hip replacement (2) History of hysterectomy (3) Tubal Ligation Status Family History Cancer Diabetes mellitus FH: kidney disease Heart disease Hypertension Kidney disease Social History Smoking Status: Former Smoker Alcohol Use: none Drug Use: none Marital Status: Housing Status: lives alone Occupation Status: retired Current/Historical Medications Scheduled Atorvastatin (Lipitor), 20 MG PO QPM Levothyroxine Sodium (Levothyroxine Sodium), 1 TAB PO QAM Multivitamin (Multivitamin), 1 TAB PO QAM Omeprazole (Prilosec), 20 MG PO BID Ranitidine (Zantac), 150 MG PO BID Sertraline (Zoloft), 50 MG PO QAM Scheduled PRN Acetaminophen (Tylenol), 1-2 TABS PO Q6 PRN for Pain Physical Exam Vital Signs Date Time Temp Pulse Resp B/P (MAP) Pulse Ox O2 Delivery O2 Flow Rate FiO2 06/12/17 08:36 36.4 92 19 135/86 92 Room Air Physical Exam CONSTITUTIONAL: Healthy and well nourished. Alert and oriented X 3 with positive affect. GCS 15. Patient does not appear in any acute distress. HEENT: Examination shows a 1 cm laceration at the crown without active bleeding or hematoma formation. Pupils equal, round and reactive. No subconjunctival hemorrhage, hemotympanum, epistaxis, raccoon's eyes or rutledge sign. NECK: Full active range of motion without discomfort. RESPIRATORY: Clear to auscultation bilaterally with no wheezing, crackles, rhonchi or stridor. CARDIOVASCULAR: Regular rate and rhythm with no murmurs, rubs or gallops. MUSCULOSKELETAL: Full range of motion of all joints without discomfort. INTEGUMENTARY: No rash or other significant dermatologic conditions noted. NEUROLOGIC: Cranial nerves II-XII grossly intact. No focal neurologic deficits noted. Medical Decision & Procedures ER Provider Diagnostic Interpretation: Noncontrast CT of the head does not show any fractures or intracranial bleed. Radiologist report is as follows: HEAD WITHOUT CONTRAST (CT) CT DOSE: 638.56 mGycm HISTORY: Trauma CHI s/p fall TECHNIQUE: Multiaxial CT images of the head were performed without the use of intravenous contrast. A dose lowering technique was utilized adhering to the principles of ALARA. Comparison: 05/06/2017 Findings: The paranasal sinuses and mastoid air cells are clear. The calvarium and skull base are intact. The ventricles and sulci are within normal limits. There is no mass, hematoma, midline shift, or acute infarct. Impression: No acute intracranial abnormality. Procedure Scalp laceration repair was performed under local anesthesia after receiving verbal consent from the patient. Using 1% lidocaine with epinephrine, good local anesthesia was administered. Peripheral tissue was cleansed with iodine, then the wound was irrigated with normal saline prior to closure with bethany 2. A bacitracin dressing was applied. ED Course Patient history and physical exam were performed. Nurse's notes were reviewed. Vital signs were reviewed and were normal. The patient refused any analgesics. Noncontrast CT of the head was normal. Laceration repair was performed under local anesthesia. The patient was provided additional verbal and written wound care instructions. Tylenol as needed for pain. Staple removal in 7-10 days, or seek reevaluation sooner for any signs of wound infection. The patient denied any significant discomfort at the time of discharge, and was discharged with her family. The patient was also seen and examined by Dr. Simon, ED attending physician, who agrees with workup and plan of care. Medical Decision Medication Reconcilliation Current Medication List: was personally reviewed by sc Blood Pressure Screening Patient's blood pressure: Normal blood pressure Impression Primary Impression: Scalp laceration Additional Impression: Fall at home Departure Information Referrals Elmer Villalpando M.D. (PCP) Patient Instructions My [facility] Problem Qualifiers Primary Impression: Scalp laceration Encounter type: initial encounter Qualified Codes: S01.01XA - Laceration without foreign body of scalp, initial encounter Additional Impression: Fall at home Encounter type: initial encounter Qualified Codes: W19.XXXA - Unspecified fall, initial encounter; Y92.009 - Unspecified place in unspecified non- institutional (private) residence as the place of occurrence of the external cause
[2017-06-12 10:28] VITALS: BP 131/79; PULSE 86; O2SAT 98
[2017-06-12] MEDS ORDERED: PRLSR20 PO (10:31)
[2017-06-12] MEDS ORDERED: MULT-506 PO (10:31)
[2017-06-12] MEDS ORDERED: LEVO100T7 PO (10:31)
[2017-06-12] MEDS ORDERED: ATOR-22 PO (10:31)
[2017-06-12] MEDS ORDERED: ACET-1256 PO (10:31)
[2017-06-12] MEDS ORDERED: RANI150T85 PO (10:31)
[2017-06-12] MEDS ORDERED: SERT50TA PO (17:41)
== END 2017-06-12 10:29 | disposition home or self-care (01) ==
LOC: C.EDB 08:29
DX: S01.01XA Laceration without foreign body of scalp, initial encounter (principal); W19.XXXA Unspecified fall, initial encounter; E11.9 Type 2 diabetes mellitus without complications; K21.9 Gastro-esophageal reflux disease without esophagitis; E78.5 Hyperlipidemia, unspecified; I10 Essential (primary) hypertension; E03.9 Hypothyroidism, unspecified; M19.90 Unspecified osteoarthritis, unspecified site; Z83.3 Family history of diabetes mellitus; Z82.49 Family history of ischemic heart disease and other diseases of the circulatory system; Z87.891 Personal history of nicotine dependence

== ENCOUNTER → 2017-07-10 | Outpatient (CLI) | payer OTHER ==
[~2017-07-10] MED LIST changes: -GADAVIST IV PRN
[2017-07-11 06:59] LABS: HEMOGLOBIN A1C 6.1 % (4.5-5.6)
== END | disposition home or self-care (01) ==
LOC: C.LABBFT 14:24
PROVIDERS: ATTEND Internal Medicine
DX: R73.03 Prediabetes (principal); E03.9 Hypothyroidism, unspecified; R41.3 Other amnesia

== ENCOUNTER 2019-02-05 12:39 | Inpatient (IN) ==
[2019-02-05] MEDS ORDERED: SODIUM CHLORIDE 0.9% 1000ML 1,000 ML IV SCH (12:45)
[2019-02-05] MEDS ORDERED: OPTIRAY 320 125ml IV PRN (12:55)
--- NOTE | 2019-02-05 13:09 | CT Scan Report ---
CT head/brain wo con CLINICAL HISTORY: 78 years-old Female presenting with Stroke evaluation. TECHNIQUE: Multidetector CT imaging of the head was performed without the use of intravenous contrast . IV contrast: None. One or more dose lowering techniques were used consistent with the principles of ALARA (as low as reasonably achievable), including automatic exposure control, mA or kV adjustment t o individual patient size, and/or use of iterative reconstruction. COMPARISON: 01/16/2019. CT DOSE (mGy.cm): The estimated cumulative dose is 1158.02 mGy.cm. FINDINGS: Change Management Coordinator topogram: Left shoulder arthroplasty. Proportional ventricular and sulcal prominence, likely age-related parenchymal volume loss. No hemorr kraig. Periventricular and subcortical white matter hypoattenuation, nonspecific but likely indicative of chronic small vessel ischemic change. No acute territorial infarct. No mass effect or midline reagan ft. No extra-axial fluid collection. Paranasal sinuses and mastoid air cells clear. Calvarium intact. IMPRESSION: 1. Chronic small vessel ischemic change. No acute intracranial abnormality. Electronically signed by: Wally Lorenzo M.D. 02/05/2019 1:08 PM
--- NOTE | 2019-02-05 13:11 | CT Scan Report ---
CT angio head w con CLINICAL HISTORY: 78 years-old Female with cva. Acute strokelike symptoms COMPARISON STUDY: Head CT of same day TECHNIQUE: Following the IV administration of 117 cc of Optiray 320, CT angiogram of the brain was pe rformed from the skull base to the vertex. Images are reviewed in the axial, sagittal, and coronal pl anes. 3-D MIPS images are created and assessed. IV contrast was administered without complication. Al l measurements were obtained according to NASCET criteria. A dose lowering technique was utilized adh ering to the principles of ALARA. FINDINGS: CT ANGIOGRAM OF THE BRAIN: The imaged bilateral internal carotid arteries are patent. The bilateral anterior and middle cerebral arteries are also patent. The vertebrobasilar system and posterior cerebral arteries appear patent. The majority of the bilateral vertebral arteries terminate into the PICA branches. Diminutive basilar artery. origin of the bilateral posterior cerebral arteries. There is no aneurysm, high-grade stenosis, or proximal branch occlusion identified. Dural sinuses appear patent. Age-related involutional changes. Right-sided cataract repair. 8 mm subcutaneous lesion of the right suboccipital scalp may reflect a sebaceous cyst. Probable additional sebaceous cyst of the right fron bia scalp. IMPRESSION: Unremarkable CTA without aneurysm, dissection, high-grade stenosis or proximal branch occ lusion. The above report was generated using voice recognition software. It may contain grammatical, syntax o r spelling errors. Electronically signed by: Joss Wells M.D. 02/05/2019 1:09 PM
[2019-02-05 13:16] LABS: Basophils # (auto) 0.01 K/uL (0-0.2); Basophils % (auto) 0.2 %; Eosinophils # (auto) 0.02 K/uL (0-0.5); Eosinophils % (auto) 0.4 %; Hemoglobin 11.9 g/dL (12.0-16.0); Immature Granulocytes # (auto) 0.02 K/uL (0.00-0.02); Immature Granulocytes % (auto) 0.4 %; Lymphocytes # (auto) 0.74 K/uL (1.2-3.4); Lymphocytes % (auto) 13.6 %; Mean Corpuscular Hemoglobin 30.7 pg (25-34); Mean Corpuscular Hgb Conc 32.2 g/dL (32-36); Mean Corpuscular Volume 95.6 fL (80-100); Mean Platelet Volume 8.8 fL (7.4-10.4); Monocytes # (auto) 0.32 K/uL (0.11-0.59); Monocytes % (auto) 5.9 %; Neutrophils # (auto) 4.35 K/uL (1.4-6.5); Neutrophils % (auto) 79.5 %; Platelet Count 227 K/uL (130-400); RDW Coefficient of Variation 13.8 % (11.5-14.5); RDW Standard Deviation 48.2 fL (36.4-46.3); Red Blood Count 3.87 M/uL (4.2-5.4); White Blood Count 5.46 K/uL (4.8-10.8)
--- NOTE | 2019-02-05 13:16 | CT Scan Report ---
CT angio neck with con CLINICAL HISTORY: 78 years-old Female with cva. Acute strokelike symptoms COMPARISON STUDY: CTA of the head of same day TECHNIQUE: Following the IV administration of 117 mL of Optiray 320, CT angiogram of the neck was per formed from the aortic arch to the skull base. Images are reviewed in the axial, sagittal, and gomez l planes. 3-D MIPS images are created and assessed. IV contrast was administered without complication . All measurements were calculated based on NASCET criteria. A dose lowering technique was utilized adhering to the principles of ALARA. FINDINGS: Three-vessel morphology of the aortic arch. Patency of the imaged bilateral subclavian arteries. The bilateral common carotid arteries are widely patent. Mild atheromatous plaque of the right compatible with mild mixed plaque of the left carotid bulb. Both of these findings result in less than 50% kerry nal narrowing. The remainder of the internal carotid arteries are patent and within normal limits. Bi lateral vertebral arteries appear patent and are unremarkable. The bilateral distal V4 segments are d iminutive in size. The basilar artery is also diminutive. origin of the bilateral posterior cer ebral arteries. No aneurysm, dissection, high-grade stenosis or proximal branch occlusion. No pneumothorax. Mild groundglass opacities of the lung apices. Soft tissues of the neck are unremark able. There is no adenopathy. Degenerative changes are noted throughout the spine. IMPRESSION:Unremarkable CTA without aneurysm, dissection, high-grade stenosis or proximal branch occl usion. The above report was generated using voice recognition software. It may contain grammatical, syntax o r spelling errors. Electronically signed by: Joss Wells M.D. 02/05/2019 1:14 PM
--- NOTE | 2019-02-05 13:26 | XRay Report ---
XR chest 1V portable HISTORY: 78 years-old Female stroke acute strokelike symptoms COMPARISON: Chest radiograph 01/16/2019 TECHNIQUE: Portable AP view of the chest FINDINGS: Cardiac silhouette is enlarged, unchanged. No overt pulmonary edema. No pneumothorax, pleural effusio n or new focal airspace consolidation. Unchanged right hemidiaphragmatic elevation. Degenerative basilio ges of the shoulders and spine. Left shoulder arthroplasty. Calcified left hilar lymph nodes. IMPRESSION: Cardiomegaly without acute process. The above report was generated using voice recognition software. It may contain grammatical, syntax o r spelling errors. Electronically signed by: Joss Wells M.D. 02/05/2019 1:25 PM
[2019-02-05 13:27] LABS: INR 1.1 (0.9-1.1); Partial Thromboplastin Ratio 0.9; Partial Thromboplastin Time 24.4 Seconds (21.0-31.0); Prothrombin Time 10.9 Seconds (9.0-12.0)
[2019-02-05 13:32] LABS: Alanine Aminotransferase 27 U/L (12-78); Albumin Level 3.1 gm/dl (3.4-5.0); Aspartate Aminotransferase 41 U/L (15-37); BUN Creatinine Ratio 22.5 (10-20); Blood Urea Nitrogen 19 mg/dl (7-18); Calcium 8.6 mg/dl (8.5-10.1); Carbon Dioxide 29 mmol/L (21-32); Chloride 104 mmol/L (98-107); Creatinine Clr Calc Pharmacy 60.5 ml/min; Est GFR (African American) 78.9; Est GFR (Non-African American) 68.1; Glucose 102 mg/dl (70-99); Sodium 138 mmol/L (136-145)
[2019-02-05 13:37] LABS: Albumin Globulin Ratio 1.1 (0.9-2); Alkaline Phosphatase 90 U/L (45-117); Bilirubin,Total 0.2 mg/dl (0.2-1); Globulin 2.9 gm/dl (2.5-4.0); Troponin I < 0.015 ng/ml (0-0.045)
--- NOTE | 2019-02-05 14:17 | Emergency Department Note ---
Entered by Marium Taylor acting as a scribe for Luis Daley DO History of Present Illness General Chief complaint: Stroke Alert Stated complaint: STROKE ALERT Time Seen by Provider: 02/05/19 12:44 Source: EMS History of Present Illness Onset (ago): hour(s) (1.5) Location: right Pain Consistency: + other (episode ) Quality: + other (weakness) Associated symptoms: + other (positive staggering; positive moving slower; positive near syncopal episode ) The patient is a 78 year old female who presents to the Emergency Room with complaints of an episode of right-sided weakness that began at approximately 1130 this morning, 1.5 hours prior to arrival, per EMS. EMS states that they were called as the patient was not acting at her baseline, and was reported to be staggering and moving slower than baseline. Per EMS, the patient then had a near syncopal episode and almost fell. EMS states that they noticed the patient's right-sided weakness at this time. Home Medications Home Medications Medication Instructions Recorded Confirmed Type atorvastatin [Lipitor] 20 mg PO DAILY 02/09/18 02/05/19 History levothyroxine [Synthroid] 100 mcg PO DAILY 02/09/18 02/05/19 History omeprazole 20 mg PO BID 02/09/18 02/05/19 History melatonin 10 mg capsule 10 mg PO HS cap 12/28/18 02/05/19 History lorazepam 0.5 mg tablet 0.5 mg PO TID tab 12/30/18 02/05/19 History risperidone 0.5 mg disintegrating 0.5 mg PO TID 12/30/18 02/05/19 History tablet sertraline 100 mg tablet 150 mg PO DAILY tab 12/30/18 02/05/19 History cholecalciferol (vitamin D3) 1,000 unit PO DAILY 01/15/19 02/05/19 History [Vitamin D3] donepezil 5 mg PO DAILY 01/15/19 02/05/19 History memantine 5 mg PO BID 01/15/19 02/05/19 History multivitamin,gc-sckd-eiebdixi 1 tab PO DAILY 01/15/19 02/05/19 History [Therems-M] nystatin 1 applic TOPICAL BID PRN 01/15/19 02/05/19 History nystatin 1 applic TOPICAL BID PRN 01/15/19 02/05/19 History phenyleph-min oil-petrolatum 1 applic NC BID PRN 01/15/19 02/05/19 History [Preparation H] polyethylene glycol 3350 17 g PO DAILY 01/16/19 02/05/19 History famotidine 20 mg PO DAILY 02/05/19 02/05/19 History tramadol 5 mg PO Q4H PRN 02/05/19 02/05/19 History trazodone 100 mg PO HS 02/05/19 02/05/19 History Allergies Allergy/AdvReac Type Severity Reaction Status Date / Time aspirin AdvReac Unknown contraindicated Verified 02/05/19 14:23 d/t gastritis Past Med/Surg History Medical History (Updated 02/05/19 @ 15:19 by David Fried MD) Alzheimer disease Anxiety Depression DNR (do not resuscitate) Dyslipidemia GERD (gastroesophageal reflux disease) GERD (gastroesophageal reflux disease) Hearing deficit Hearing loss Hyperlipidemia Hypothyroidism Osteoarthritis Osteoarthritis Surgical History History of bilateral tubal ligation History of discectomy History of esophagogastroduodenoscopy (EGD) History of tonsillectomy History of tooth extraction History of total abdominal hysterectomy and bilateral salpingo-oophorectomy History of total left hip replacement History of total right hip replacement Family History Brother Family history of diabetes mellitus Social History Preferred Language: Occitan Communication Ability: confused [employer] Required: No Beliefs That Will Affect Care: None Current Living Situation: Personal Care Facility Current Living Situation Comment: [facility] Feels Safe at Home: Yes Smoking Status: Former smoker Tobacco Type: cigarettes ; Second Hand Exposure: Yes (mother/brother smoked) ; Hx Alcohol Use: No Hx Substance Use: No Review of Systems See HPI for pertinent positives & negatives. and A total of 10 systems reviewed and were otherwise negative Physical Exam Vital Signs Vital Signs - 24 hr 02/05/19 13:09 02/05/19 13:22 02/05/19 13:24 Temperature 36.5 C Temperature Source Oral Pulse Rate 80 Pulse Rate [Apical] 77 Pulse Rate from SpO2 Sensor Pulse Rhythm Regular Pulse Rhythm [Apical] Regular Pulse Strength Normal Pulse Strength [Apical] Normal Respiratory Rate 22 22 Respiratory Effort / Characteristics Non-Labored Spontaneous Non-Labored Spontaneous Respiratory Depth Normal Normal Respiratory Pattern Regular Regular Blood Pressure 169/91 H Blood Pressure [Right Arm] 171/98 H Blood Pressure Mean 117 Blood Pressure Mean [Right Arm] 122 Blood Pressure Position Sitting Blood Pressure Position [Right Arm] Sitting Pulse Oximetry 87 L 87 L 96 Oxygen Delivery Method Room Air Room Air Nasal Cannula Oxygen Flow Rate 2 Sepsis Recent Fever Within 48 Hours No Sepsis New/Unexplained Change in Mental Status No Sepsis Action Taken by Nursing No Action Required Oxygen Flow Rate - Titration 2 Pulse Oximetry Post Tiitration 96 02/05/19 15:01 Temperature Temperature Source Pulse Rate 87 Pulse Rate [Apical] Pulse Rate from SpO2 Sensor 88 Pulse Rhythm Pulse Rhythm [Apical] Pulse Strength Pulse Strength [Apical] Respiratory Rate 19 Respiratory Effort / Characteristics Respiratory Depth Respiratory Pattern Blood Pressure 169/104 H Blood Pressure [Right Arm] Blood Pressure Mean 117 Blood Pressure Mean [Right Arm] Blood Pressure Position Blood Pressure Position [Right Arm] Pulse Oximetry 96 Oxygen Delivery Method Nasal Cannula Oxygen Flow Rate 2 Sepsis Recent Fever Within 48 Hours Sepsis New/Unexplained Change in Mental Status Sepsis Action Taken by Nursing Oxygen Flow Rate - Titration Pulse Oximetry Post Tiitration GENERAL: The patient is awake and alert. She is somewhat anxious appearing but appears comfortable. EYES: The conjunctivae are clear. The pupils are round and reactive. EARS, NOSE, MOUTH AND THROAT: The nose is without any evidence of any deformity. Mucous membranes are moist tongue is midline NECK: The neck is nontender and supple. RESPIRATORY: Shallow respirations were noted. There were no rales rhonchi or wheezing. CARDIOVASCULAR: Regular rate and rhythm noted there no murmurs rubs or gallops normal S1 normal S2 GASTROINTESTINAL: The abdomen is soft and nondistended. There is no tenderness guarding or rigidity elicited. MUSCULOSKELETAL/EXTREMITIES: There is no evidence of gross deformity full range of motion is noted in the hips and shoulders SKIN: There is no obvious evidence of any rash. Pedal edema was noted bilatera lly. NEUROLOGIC: The patient is awake and looking around the room. Her speech is somewhat slurred. The patient has no drift in the upper extremities. She is able to hold each leg off the bed for greater than 5 seconds. The patient is awake and oriented to person place but not time or situation. Course Course 1300: Past medical records reviewed. The patient was evaluated in room A1. A complete history and physical exam was performed. 1303: The nursing staff discussed the case with Dr. Haney [facility] who recommended calling back if anything abnormal is found on the CT scans. 1413: Upon reevaluation, the patient has had no change in her symptoms. She is resting comfortably. 1414: [facility] evaluation. Administered Medications Sodium Chloride (Nss 1000ml) 1,000 mls @ 60 mls/hr IV .[id number] DAX Stop: 03/07/19 16:05 Last Admin: 02/05/19 16:58 Dose: 60 mls/hr Documented by: [id number] Discontinued Medications Sodium Chloride (Nss 1000ml) 1,000 mls @ 50 mls/hr IV .Q20H DAX Stop: 03/07/19 12:44 Last Infusion: 02/05/19 16:08 Dose: 0 mls/hr Documented by: [id number] Admin: 02/05/19 13:26 Dose: 50 mls/hr Documented by: [id number] Ioversol (Optiray 320 125ml) 117 ml IV ONCE PRN PRN Reason: Interaction Checking Stop: 02/09/19 12:54 Last Admin: 02/05/19 12:55 Dose: 117 ml Documented by: [id number] Medical Decision Making Differential Diagnosis Differential Diagnosis includes but is not limited to dehydration, stroke, anemia, hypoglycemia, hyponatremia, hypernatremia, urinary tract infection, pneumonia, bronchitis, sepsis, gastroenteritis, additional abdominal pathology, metabolic abnormalities and infections. Medical Records Attestation: I reviewed the patient's medical records. Home Medications Current Medication List: was personally reviewed by me Laboratory Data Attestation: I reviewed the patient's lab results. Result diagrams: 02/05/19 13:05 02/05/19 13:05 Lab Results 02/05/19 02/05/19 02/05/19 Range/Units 13:05 13:05 13:05 WBC 5.46 (4.8-10.8) K/uL RBC 3.87 L (4.2-5.4) M/uL Hgb 11.9 L (12.0-16.0) g/dL Hct 37.0 (37-47) % MCV 95.6 (80-100) fL MCH 30.7 (25-34) pg MCHC 32.2 (32-36) g/dL RDW Std Deviation 48.2 H (36.4-46.3) fL RDW Coeff of [place] 13.8 (11.5-14.5) % Plt Count 227 (130-400) K/uL MPV 8.8 (7.4-10.4) fL Immature Gran % (Auto) 0.4 % Neut % (Auto) 79.5 % Lymph % (Auto) 13.6 % [place] % (Auto) 5.9 % Eos % (Auto) 0.4 % Baso % (Auto) 0.2 % Immature Gran # (Auto) 0.02 (0.00-0.02) K/uL Neut # (Auto) 4.35 (1.4-6.5) K/uL Lymph # (Auto) 0.74 L (1.2-3.4) K/uL [place] # (Auto) 0.32 (0.11-0.59) K/uL Eos # (Auto) 0.02 (0-0.5) K/uL Baso # (Auto) 0.01 (0-0.2) K/uL PT 10.9 (9.0-12.0) Seconds INR 1.1 (0.9-1.1) APTT 24.4 (21.0-31.0) Seconds PTT Ratio 0.9 Sodium 138 (136-145) mmol/L Potassium 4.0 (3.5-5.1) mmol/L Chloride 104 (98-107) mmol/L Carbon Dioxide 29 (21-32) mmol/L Anion Gap 5.0 (3-11) BUN 19 H (7-18) mg/dl Creatinine 0.82 (0.6-1.2) mg/dl Est Cr Clr Drug Dosing 60.5 ml/min Est GFR ( Amer) 78.9 Est GFR (Non-Af Amer) 68.1 BUN/Creatinine Ratio 22.5 H (10-20) Glucose 102 H (70-99) mg/dl POC Glucose (70-99) Calcium 8.6 (8.5-10.1) mg/dl Magnesium 2.0 (1.8-2.4) mg/dl Total Bilirubin 0.2 (0.2-1) mg/dl AST 41 H (15-37) U/L ALT 27 (12-78) U/L Alkaline Phosphatase 90 (45-117) U/L Troponin I < 0.015 (0-0.045) ng/ml Total Protein 6.0 L (6.4-8.2) gm/dl Albumin 3.1 L (3.4-5.0) gm/dl Globulin 2.9 (2.5-4.0) gm/dl Albumin/Globulin Ratio 1.1 (0.9-2) Urine Color Urine Appearance (Clear) Urine pH (4.5-7.5) Ur Specific [place] (1.000-1.030) Urine Protein (Negative) Urine Glucose (UA) (Negative) Urine Ketones (Negative) Urine Blood (Negative) Urine Nitrite (Negative) Urine Bilirubin (Negative) Urine Urobilinogen (Negative) Ur Leukocyte Esterase (Negative) 02/05/19 02/05/19 Range/Units 13:09 14:05 WBC (4.8-10.8) K/uL RBC (4.2-5.4) M/uL Hgb (12.0-16.0) g/dL Hct (37-47) % MCV (80-100) fL MCH (25-34) pg MCHC (32-36) g/dL RDW Std Deviation (36.4-46.3) fL RDW Coeff of [place] (11.5-14.5) % Plt Count (130-400) K/uL MPV (7.4-10.4) fL Immature Gran % (Auto) % Neut % (Auto) % Lymph % (Auto) % [place] % (Auto) % Eos % (Auto) % Baso % (Auto) % Immature Gran # (Auto) (0.00-0.02) K/uL Neut # (Auto) (1.4-6.5) K/uL Lymph # (Auto) (1.2-3.4) K/uL [place] # (Auto) (0.11-0.59) K/uL Eos # (Auto) (0-0.5) K/uL Baso # (Auto) (0-0.2) K/uL PT (9.0-12.0) Seconds INR (0.9-1.1) APTT (21.0-31.0) Seconds PTT Ratio Sodium (136-145) mmol/L Potassium (3.5-5.1) mmol/L Chloride (98-107) mmol/L Carbon Dioxide (21-32) mmol/L Anion Gap (3-11) BUN (7-18) mg/dl Creatinine (0.6-1.2) mg/dl Est Cr Clr Drug Dosing ml/min Est GFR ( Amer) Est GFR (Non-Af Amer) BUN/Creatinine Ratio (10-20) Glucose (70-99) mg/dl POC Glucose 108 H (70-99) Calcium (8.5-10.1) mg/dl Magnesium (1.8-2.4) mg/dl Total Bilirubin (0.2-1) mg/dl AST (15-37) U/L ALT (12-78) U/L Alkaline Phosphatase (45-117) U/L Troponin I (0-0.045) ng/ml Total Protein (6.4-8.2) gm/dl Albumin (3.4-5.0) gm/dl Globulin (2.5-4.0) gm/dl Albumin/Globulin Ratio (0.9-2) Urine Color Yellow Urine Appearance Clear (Clear) Urine pH 7.0 (4.5-7.5) Ur Specific [place] > 1.045 H (1.000-1.030) Urine Protein Negative (Negative) Urine Glucose (UA) Negative (Negative) Urine Ketones Negative (Negative) Urine Blood Negative (Negative) Urine Nitrite Negative (Negative) Urine Bilirubin Negative (Negative) Urine Urobilinogen Negative (Negative) Ur Leukocyte Esterase Negative (Negative) Imaging Data Radiologist's Impression: Radiology results as stated below per my review and the radiologist's interpretation: CT head/brain wo con CLINICAL HISTORY: 78 years-old Female presenting with Stroke evaluation. TECHNIQUE: Multidetector CT imaging of the head was performed without the use of intravenous contrast. IV contrast: None. One or more dose lowering techniques were used consistent with the principles of ALARA (as low as reasonably achievable), including automatic exposure control, mA or kV adjustment to ind ividual patient size, and/or use of iterative reconstruction. COMPARISON: 01/16/2019. CT DOSE (mGy.cm): The estimated cumulative dose is 1158.02 mGy.cm. FINDINGS: [employer] topogram: Left shoulder arthroplasty. Proportional ventricular and sulcal prominence, likely age-related parenchymal volume loss. No hemorrhage. Periventricular and subcortical white matter hypoattenuation, nonspecific but likely indicative of chronic small vessel ischemic change. No acute territorial infarct. No mass effect or midline shift. No extra-axial fluid collection. Paranasal sinuses and mastoid air cells clear. Calvarium intact. IMPRESSION: 1. Chronic small vessel ischemic change. No acute intracranial abnormality. Electronically signed by: Wally Lorenzo M.D. 02/05/2019 1:[address] angio head w con CLINICAL HISTORY: 78 years-old Female with cva. Acute strokelike symptoms COMPARISON STUDY: Head CT of same day TECHNIQUE: Following the IV administration of 117 cc of Optiray 320, CT angiogram of the brain was performed from the skull base to the vertex. Images are reviewed in the axial, sagittal, and coronal planes. 3-D MIPS images are created and assessed. IV contrast was administered without complication. All measurements were obtained according to NASCET criteria. A dose lowering technique was utilized adhering to the principles of ALARA. FINDINGS: CT ANGIOGRAM OF THE BRAIN: The imaged bilateral internal carotid arteries are patent. The bilateral anterior and middle cerebral arteries are also patent. The vertebrobasilar system and posterior cerebral arteries appear patent. The majority of the bilateral vertebral arteries terminate into the PICA branches. Diminutive basilar artery. origin of the bilateral posterior cerebral arteries. There is no aneurysm, high-grade stenosis, or proximal branch occlusion identified. Dural sinuses appear patent. Age-related involutional changes. Right-sided cataract repair. 8 mm subcutaneous lesion of the right suboccipital scalp may reflect a sebaceous cyst. Probable additional sebaceous cyst of the right frontal scalp. IMPRESSION: Unremarkable CTA without aneurysm, dissection, high-grade stenosis or proximal branch occlusion. The above report was generated using voice recognition software. It may contain grammatical, syntax or spelling errors. Electronically signed by: Joss Wells M.D. 02/05/2019 1:[address] angio neck with con CLINICAL HISTORY: 78 years-old Female with cva. Acute strokelike symptoms COMPARISON STUDY: CTA of the head of same day TECHNIQUE: Following the IV administration of 117 mL of Optiray 320, CT angiogram of the neck was performed from the aortic arch to the skull base. Images are reviewed in the axial, sagittal, and coronal planes. 3-D MIPS images are created and assessed. IV contrast was administered without complication. All measurements were calculated based on NASCET criteria. A dose lowering technique was utilized adhering to the principles of ALARA. FINDINGS: Three-vessel morphology of the aortic arch. Patency of the imaged bilateral subclavian arteries. The bilateral common carotid arteries are widely patent. Mild atheromatous plaque of the right compatible with mild mixed plaque of the left carotid bulb. Both of these findings result in less than 50% luminal narrowing. The remainder of the internal carotid arteries are patent and within normal limits. Bilateral vertebral arteries appear patent and are unremarkable. The bilateral distal V4 segments are diminutive in size. The basilar artery is also diminutive. origin of the bilateral posterior cerebral arteries. No aneurysm, dissection, high-grade stenosis or proximal branch occlusion. No pneumothorax. Mild groundglass opacities of the lung apices. Soft tissues of the neck are unremarkable. There is no adenopathy. Degenerative changes are noted throughout the spine. IMPRESSION:Unremarkable CTA without aneurysm, dissection, high-grade stenosis or proximal branch occlusion. The above report was generated using voice recognition software. It may contain grammatical, syntax or spelling errors. Electronically signed by: Joss Wells M.D. 02/05/2019 1:14 PM XR chest 1V portable HISTORY: 78 years-old Female stroke acute strokelike symptoms COMPARISON: Chest radiograph 01/16/2019 TECHNIQUE: Portable AP view of the chest FINDINGS: Cardiac silhouette is enlarged, unchanged. No overt pulmonary edema. No pneumothorax, pleural effusion or new focal airspace consolidation. Unchanged right hemidiaphragmatic elevation. Degenerative changes of the shoulders and spine. Left shoulder arthroplasty. Calcified left hilar lymph nodes. IMPRESSION: Cardiomegaly without acute process. The above report was generated using voice recognition software. It may contain grammatical, syntax or spelling errors. Electronically signed by: Joss Wells M.D. 02/05/2019 1:25 PM ECG Data Attestation: I personally reviewed and interpreted this ECG as follows: Indication: + weakness Rate (beats per minute): 76 Rhythm: + normal sinus ECG ST segments: no ST depression and no ST elevation ECG Findings: no PACs and no PVCs Blood Pressure Blood Pressure Findings: Elevated blood pressure Blood Pressure Disposition: further management by hospitalist TRINO Roblero The patient is a 78-year-old female who presented to the emergency department for strokelike symptoms. The patient resides at a personal retirement. She was found to have an alteration in her mental status and was very dizzy. The BLS service noticed that the patient may be having strokelike symptoms so ALS was notified. When the patient was evaluated by the ALS provider I received a phone call for a possible stroke alert. The patient had right-sided weakness. The patient does not have a history of this as far as we could tell. The patient does have some underlying dementia. The patient was reevaluated multiple times. On my evaluation the patient did have significant improvement in her strokelike symptoms. I discussed her case with the [facility] hospitalist group. They have agreed to evaluate the patient in the emergency department for further management disposition. The patient was reevaluated multiple times. Her symptoms were significantly improved compared to her initial presentation. The patient was made a stroke alert and her condition was discussed with the [facility] stroke neurologist. There does not appear to be any indication for TPA or for transfer at this time. Impression & Plan TIA (transient ischemic attack), Hypoxia, Weakness Discharge Plan Visit Data *Final* Discharge Date/Time: 02/05/19 15:39 Chief Complaint: Stroke Alert Stated Complaint: STROKE ALERT ED Provider: Luis Daley Discharge Problem: TIA (transient ischemic attack), Hypoxia, Weakness Patient Disposition: Admitted As Inpatient Discharge Instructions Interventions: ED Discharge Assessment Last Done: 02/05/19 15:39 The scribe's documentation has been prepared under my direction and personally reviewed by me in its entirety. I confirm that the note above accurately reflects all work, treatment, procedures, and medical decision making performed by me.
[2019-02-05 15:11] LABS: Appearance Urine Clear (Clear); Bilirubin Urine Negative (Negative); Blood Urine Negative (Negative); Color Urine Yellow; Glucose Urine UA Negative (Negative); Ketones Urine Negative (Negative); Leukocyte Esterase Urine Negative (Negative); Nitrite Urine Negative (Negative); Protein Urine Negative (Negative); Specific Gravity Urine > 1.045 (1.000-1.030); Urobilinogen Urine Negative (Negative)
--- NOTE | 2019-02-05 15:19 | History & Physical Report ---
Date of Service February 05, 2019 Assessment & Plan (1) TIA (transient ischemic attack): Follow TIA protocol. Consult neurology. Further work-up by neurology- may need MRI. Check swallowing reevaluation. Consult PT OT. Consult speech therapy. Neurochecks per protocol. Add aspirin. (2) Dementia with behavioral disturbance: Continue home meds. (3) Mejia's esophagus: Continue with home meds. (4) Osteoarthritis: (5) Dyslipidemia: Continue statins. (6) Hearing loss: (7) GERD (gastroesophageal reflux disease): Continue with home meds. (8) DVT prophylaxis: Add subcu heparin. (9) DNR (do not resuscitate): CODE STATUS discussed. Patient is DNR/DNI. History of Present Illness Chief Complaint: Right-sided weakness. Primary Care Provider: [employer] [facility], [facility] The patient is a 78 year old female who presents to the Emergency Room with complaints of an episode of right-sided weakness that began at approximately 1130 this morning, 1.5 hours prior to arrival, per EMS. EMS states that they were called as the patient was not acting at her baseline, and was reported to be staggering and moving slower than baseline. Per EMS, the patient then had a near syncopal episode and almost fell. EMS states that they noticed the patient's right-sided weakness at this time. Her symptoms have currently resolved. CT and CT angiogram of head and neck done in the emergency room is within normal limits. She will be admitted under observation to rule out TIA. CODE STATUS was discussed and she is DNR/DNI. Her family is present at the bedside. Patient herself is a poor historian secondary to dementia. Allergies Allergy/AdvReac Type Severity Reaction Status Date / Time aspirin AdvReac Unknown contraindicated Verified 02/05/19 14:23 d/t gastritis Home Medications Home Medications Medication Instructions Recorded Confirmed Type atorvastatin [Lipitor] 20 mg PO DAILY 02/09/18 02/05/19 History levothyroxine [Synthroid] 100 mcg PO DAILY 02/09/18 02/05/19 History omeprazole 20 mg PO BID 02/09/18 02/05/19 History melatonin 10 mg capsule 10 mg PO HS cap 12/28/18 02/05/19 History lorazepam 0.5 mg tablet 0.5 mg PO TID tab 12/30/18 02/05/19 History risperidone 0.5 mg disintegrating 0.5 mg PO TID 12/30/18 02/05/19 History tablet sertraline 100 mg tablet 150 mg PO DAILY tab 12/30/18 02/05/19 History cholecalciferol (vitamin D3) 1,000 unit PO DAILY 01/15/19 02/05/19 History [Vitamin D3] donepezil 5 mg PO DAILY 01/15/19 02/05/19 History memantine 5 mg PO BID 01/15/19 02/05/19 History multivitamin,ii-bnfn-qzxpolpt 1 tab PO DAILY 01/15/19 02/05/19 History [Therems-M] nystatin 1 applic TOPICAL BID PRN 01/15/19 02/05/19 History nystatin 1 applic TOPICAL BID PRN 01/15/19 02/05/19 History phenyleph-min oil-petrolatum 1 applic [place] BID PRN 01/15/19 02/05/19 History [Preparation H] polyethylene glycol 3350 17 g PO DAILY 01/16/19 02/05/19 History famotidine 20 mg PO DAILY 02/05/19 02/05/19 History tramadol 5 mg PO Q4H PRN 02/05/19 02/05/19 History trazodone 100 mg PO HS 02/05/19 02/05/19 History Past Med/Surg History Medical History Alzheimer disease Anxiety Depression GERD (gastroesophageal reflux disease) Hearing deficit Hyperlipidemia Hypothyroidism Osteoarthritis Osteoarthritis Surgical History History of bilateral tubal ligation History of discectomy History of esophagogastroduodenoscopy (EGD) History of tonsillectomy History of tooth extraction History of total abdominal hysterectomy and bilateral salpingo-oophorectomy History of total left hip replacement History of total right hip replacement Family History Brother Family history of diabetes mellitus Social History Preferred Language: Tuvaluan Communication Ability: Effective 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 Appears slightly demented. EYES: No icterus, gaze conjugate NOSE: No evidence of epistaxis MOUTH: No lesions or candidiasis, mucosa moist NECK: Supple LUNGS: CTA B/L, no wheezes, rales or rhonchi HEART: Regular, rate controlled ABDOMEN: Soft, NT, ND, BS Present EXTREMITIES: No LE edema, pedal pulses intact NEURO: Cranial nerves intact. Moving all the 4 limbs. Results & Data Vital Signs (Past 12 Hours) Vital Signs Temp Pulse Pulse Resp BP BP Pulse Ox 02/05/19 13:24 77 22 171/98 H 96 02/05/19 13:22 87 L 02/05/19 13:09 97.7 F 80 22 169/91 H 87 L Laboratory Results 02/05/19 13:05 02/05/19 13:[address] head/brain wo con CLINICAL HISTORY: 78 years-old Female presenting with Stroke evaluation. TECHNIQUE: Multidetector CT imaging of the head was performed without the use of intravenous contrast. IV contrast: None. One or more dose lowering techniques were used consistent with the principles of ALARA (as low as reasonably achievable), including automatic exposure control, mA or kV adjustment to individual patient size, and/or use of iterative reconstruction. COMPARISON: 01/16/2019. CT DOSE (mGy.cm): The estimated cumulative dose is 1158.02 mGy.cm. FINDINGS: Operator/Assistant Foreman topogram: Left shoulder arthroplasty. Proportional ventricular and sulcal prominence, likely age-related parenchymal volume loss. No hemorrhage. Periventricular and subcortical white matter hypoattenuation, nonspecific but likely indicative of chronic small vessel ischemic change. No acute territorial infarct. No mass effect or midline shift. No extra-axial fluid collection. Paranasal sinuses and mastoid air cells clear. Calvarium intact. IMPRESSION: 1. Chronic small vessel ischemic change. No acute intracranial abnormality. Electronically signed by: Wally Lorenzo M.D. 02/05/2019 1:[address] angio head w con CLINICAL HISTORY: 78 years-old Female with cva. Acute strokelike symptoms COMPARISON STUDY: Head CT of same day TECHNIQUE: Following the IV administration of 117 cc of Optiray 320, CT angiogram of the brain was performed from the skull base to the vertex. Images are reviewed in the axial, sagittal, and coronal planes. 3-D MIPS images are created and assessed. IV contrast was administered without complication. All measurements were obtained according to NASCET criteria. A dose lowering technique was utilized adhering to the principles of ALARA. FINDINGS: CT ANGIOGRAM OF THE BRAIN: The imaged bilateral internal carotid arteries are patent. The bilateral anterior and middle cerebral arteries are also patent. The vertebrobasilar system and posterior cerebral arteries appear patent. The majority of the bilat eral vertebral arteries terminate into the PICA branches. Diminutive basilar artery. origin of the bilateral posterior cerebral arteries. There is no aneurysm, high-grade stenosis, or proximal branch occlusion identified. Dural sinuses appear patent. Age-related involutional changes. Right-sided cataract repair. 8 mm subcutaneous lesion of the right suboccipital scalp may reflect a sebaceous cyst. Probable additional sebaceous cyst of the right frontal scalp. IMPRESSION: Unremarkable CTA without aneurysm, dissection, high-grade stenosis or proximal branch occlusion. Code Status & VTE Plan Code Status DNR VTE Prophylaxis Plan VTE Prophylaxis will be ordered: Yes PG Care Time/CCT Total # of Minutes Spent Total Time Spent with Patient: Total time spent is greater than 50% in coordination of care (as documented) at patient's floor/unit and/or counseling p atient:
--- NOTE | 2019-02-05 15:36 | XRay Report ---
XR hip RT 2V w pelvis CLINICAL HISTORY: 78 years-old Female presenting with fall. TECHNIQUE: Single frontal view of the pelvis and frontal and frog-leg lateral views of the right hip were obtained. COMPARISON: 10/05/[address] of the abdomen and pelvis from 01/15/2019. FINDINGS: Sacroiliac joints and pubic symphysis congruent. Posterior lumbar fusion hardware noted. Sacral arcua te lines grossly intact. Urinary bladder opacified with excreted contrast. This mildly limits evaluat ion. Bony pelvis grossly intact. Bilateral total hip arthroplasties. No evidence of a periprosthetic fracture or lucency. The right hip specifically demonstrates no hardware complication. No malalignmen t. IMPRESSION: 1. No acute osseous injury of the pelvis or right hip. 2. Total right hip arthroplasty without evidence of hardware complication. Electronically signed by: Wally Lorenzo M.D. 02/05/2019 3:35 PM
[2019-02-05] MEDS ORDERED: ONDANSETRON INJ 2 MG/ML 2 ML VIAL IV PRN (16:06)
[2019-02-05] MEDS ORDERED: PHARMACIST DISCHARGE MED REC CONSULT PRN (16:06)
[2019-02-05] MEDS ORDERED: HydrALAZINE HCL 20 MG/ML VIAL IV PRN (16:19)
[2019-02-05] MEDS ORDERED: HYDROCORTISONE HC 2.5% CRM 30GM TUBE EXT PRN (16:48)
[2019-02-05] MEDS: SODIUM CHLORIDE 0.9% 1000ML 1,000 ML IV SCH (16:58)
[2019-02-05] MEDS: risperiDONE ODT 0.5 MG SOLTAB PO SCH (20:05)
[2019-02-05] MEDS: PANTOprazole 40 MG TAB PO SCH (20:05)
[2019-02-05] MEDS: TRAZODONE HCL 100 MG TAB PO SCH (20:05)
[2019-02-05] MEDS: LORazepam 0.5 MG TAB PO SCH (20:05)
[2019-02-05] MEDS: MEMANTINE HCL 5 MG TAB PO SCH (20:05)
[2019-02-05] MEDS ORDERED: LORazepam 1 MG/2 ML VIAL IV STA ×2 (20:22→23:05)
[2019-02-05] MEDS: HEPARIN SOD 5,000 UNIT/0.5 ML VIAL SQ SCH (22:20)
[2019-02-06] MEDS: LEVOTHYROXINE SODIUM 100 MCG TABLET PO SCH (06:20)
[2019-02-06] MEDS: HEPARIN SOD 5,000 UNIT/0.5 ML VIAL SQ SCH ×3 (06:22→20:45)
[2019-02-06 06:23] LABS: Basophils # (auto) 0.02 K/uL (0-0.2); Basophils % (auto) 0.4 %; Eosinophils # (auto) 0.12 K/uL (0-0.5); Eosinophils % (auto) 2.2 %; Hemoglobin 12.4 g/dL (12.0-16.0); Immature Granulocytes # (auto) 0.02 K/uL (0.00-0.02); Immature Granulocytes % (auto) 0.4 %; Lymphocytes # (auto) 1.07 K/uL (1.2-3.4); Mean Corpuscular Hemoglobin 31.1 pg (25-34); Mean Corpuscular Hgb Conc 32.6 g/dL (32-36); Mean Corpuscular Volume 95.2 fL (80-100); Mean Platelet Volume 8.5 fL (7.4-10.4); Monocytes # (auto) 0.38 K/uL (0.11-0.59); Monocytes % (auto) 7.1 %; Neutrophils # (auto) 3.74 K/uL (1.4-6.5); Neutrophils % (auto) 69.9 %; Platelet Count 224 K/uL (130-400); RDW Coefficient of Variation 13.6 % (11.5-14.5); RDW Standard Deviation 47.5 fL (36.4-46.3); Red Blood Count 3.99 M/uL (4.2-5.4); White Blood Count 5.35 K/uL (4.8-10.8)
[2019-02-06 06:59] LABS: Calcium 8.9 mg/dl (8.5-10.1); Est GFR (African American) 85.1; Est GFR (Non-African American) 73.4; Magnesium 2.1 mg/dl (1.8-2.4)
[2019-02-06] MEDS: LORazepam 0.5 MG TAB PO SCH ×3 (07:36→20:44)
--- NOTE | 2019-02-06 07:59 | Neurology Consultation ---
Date of Consultation February 06, 2019 Assessment & Plan (1) TIA (transient ischemic attack): (2) Dementia with behavioral disturbance: (3) Hypertension: Patient had an episode February 05 of possible right-sided weakness and speech problems. I am not certain she had a true hemiparesis but I cannot exclude this since it was not present at the [facility]. By the time she got to the emergency room her symptoms have resolved and she has remained without focal neurologic deficit since. She has no meningeal signs or encephalopathy. Therefore, a brief TIA is possible but vasospasm from hypertension and hypoxia is possible. She had an elevated blood pressure on admission and decreased O2 saturation. Without oxygen her O2 saturation is normal and her blood pressure is better today. Patient has a history of significant dementia of a progressive nature with behavioral disturbance. This is consistent with a senile dementia of the Alzheimer's type. She is on maximum medical therapy for this. Today she is not overly aggressive and is able to follow commands and listened/be redirected fairly easily. Recommendations: 1. Control blood pressure as you are doing, aiming for a mean arterial pressure of approximately 100. Be careful not to over correct. 2. Continue with atorvastatin 20 milligrams daily. She would not be a high dose statin candidate anyway. 3. Continue with memantine and donepezil at current doses. 4. Continue with sertraline, trazodone, and risperidone at her usual ptosis. 5. I do not see a need for an MRI of the brain at this time. I do not believe this would change our treatment plan. 6. Continue with 81 milligram aspirin tablet daily. Overall, I spent a total of 65 minutes with this case including review of records, review of CT films, direct evaluation the patient at bedside, and discussion of the case with the patient and nursing staff at bedside, and Dr. Garza, including differential diagnosis and treatment options. History of Present Illness Reason for Consultation: Patient is a 78-year-old, who I was asked to see at the request of Dr. Fried, for neurologic consultation regarding TIA Requesting Physician: Dr. Fried Attending Physician: Fermin Garza History of Present Illness This patient has several year history of progressive memory issues for seeing Dr. Lutz in April of 2017. He diagnosed a senile dementia of the Alzheimer's type (progressive dementia with behavioral disturbance). MRI of the brain done in April of 2017 shows moderate generalize cerebral atrophy with hydrocephalus ex vacuo and mild old small vessel ischemic changes. I reviewed these films. She last saw Dr. Lutz December 30, 2018 in clinic. She was having progressive short-term memory problems and cognitive dysfunction. She has been having problems with aggressive behavior and agitation with occasional verbal altercations. It is unknown whether she has some hallucinations or not. She has been treated aggressively with sertraline 150 milligrams a day, risperidone 0.5 milligrams 3 times a day, and trazodone 50 milligrams in the evening, all for her behavioral issues. She is on memantine 10 milligrams twice a day and donepezil 10 milligrams daily for the dementia. These have not made a significant difference. Currently she is it [facility]. On February 05 around 1130 she was noted by staff to not be able to walk right and have some right-sided weakness. She was brought to the emergency room and arrived at 1309 with a temperature of 36.5, pulse 80 and regular, respiratory rate 22, blood pressure 169/91 (mean arterial pressure 117), and an O2 saturation of 87 percent. She was given O2 and her O2 saturation is improved up to 96 percent. On exam she had no focal neurologic deficits. There was perhaps some slurred speech and anxiety. Tele stroke was done with [facility] and she was not a tPA candidate as her symptoms resolved. CBC and Chem profile were unremarkable. Urinalysis was unremarkable. CT scan of the head was unremarkable except for mild moderate generalized atrophy. CT angiography of the head and neck were unremarkable, with no evidence for vascular stenoses or anomalies. Nursing reports no new events overnight. Blood pressure this morning is 160/83 and CBC and Chem profile were unremarkable. Triglycerides were 101 and total cholesterol 139. She has been in normal sinus rhythm in the 70s and 80s overnight. Family history is largely unremarkable and noncontributory given her advancing age and medical condition. There is no history of dementia in her immediate family however. Allergies Allergy/AdvReac Type Severity Reaction Status Date / Time aspirin AdvReac Unknown contraindicated Verified 02/05/19 14:23 d/t gastritis Home Medications Home Medications Medication Instructions Recorded Confirmed Type atorvastatin [Lipitor] 20 mg PO DAILY 02/09/18 02/05/19 History levothyroxine [Synthroid] 100 mcg PO DAILY 02/09/18 02/05/19 History omeprazole 20 mg PO BID 02/09/18 02/05/19 History melatonin 10 mg capsule 10 mg PO HS cap 12/28/18 02/05/19 History lorazepam 0.5 mg tablet 0.5 mg PO TID tab 12/30/18 02/05/19 History risperidone 0.5 mg disintegrating 0.5 mg PO TID 12/30/18 02/05/19 History tablet sertraline 100 mg tablet 150 mg PO DAILY tab 12/30/18 02/05/19 History cholecalciferol (vitamin D3) 1,000 unit PO DAILY 01/15/19 02/05/19 History [Vitamin D3] donepezil 5 mg PO DAILY 01/15/19 02/05/19 History memantine 5 mg PO BID 01/15/19 02/05/19 History multivitamin,wk-kfow-ksbzxljv 1 tab PO DAILY 01/15/19 02/05/19 History [Therems-M] nystatin 1 applic TOPICAL BID PRN 01/15/19 02/05/19 History nystatin 1 applic TOPICAL BID PRN 01/15/19 02/05/19 History phenyleph-min oil-petrolatum 1 applic [place] BID PRN 01/15/19 02/05/19 History [Preparation H] polyethylene glycol 3350 17 g PO DAILY 01/16/19 02/05/19 History famotidine 20 mg PO DAILY 02/05/19 02/05/19 History tramadol 5 mg PO Q4H PRN 02/05/19 02/05/19 History trazodone 100 mg PO HS 02/05/19 02/05/19 History Patient History Medical History Alzheimer disease Anxiety Depression DNR (do not resuscitate) Dyslipidemia GERD (gastroesophageal reflux disease) GERD (gastroesophageal reflux disease) Hearing deficit Hearing loss Hyperlipidemia Hypothyroidism Osteoarthritis Osteoarthritis Surgical History History of bilateral tubal ligation History of discectomy History of esophagogastroduodenoscopy (EGD) History of tonsillectomy History of tooth extraction History of total abdominal hysterectomy and bilateral salpingo-oophorectomy History of total left hip replacement History of total right hip replacement Family History Brother Family history of diabetes mellitus Social History Preferred Language: [place]ican Communication Ability: confused Manager Infrastructure Required: No Beliefs That Will Affect Care: None Current Living Situation: Personal Care Facility Current Living Situation Comment: [facility] 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 Feels Safe at Home: Yes Smoking Status: Former smoker Tobacco Type: cigarettes ; Second Hand Exposure: Yes (mother/brother smoked) ; Hx Alcohol Use: No Hx Substance Use: No Review of Systems Review of Systems: Review of systems was very difficult due to her dementia/cognitive status. However she had a mild bifrontal headache but no other pain in the spine or limbs. She denied weakness or numbness of the limbs, shortness of breath, dizziness, vision problems, abdominal pain, or chest pain. Physical Exam Physical Exam: The patient is right-handed. The patient is awake, alert, and attentive. Speech is single words only and only talks when she is asked direct questions. There may be some slight dysarthria but I suspect this is baseline. She can name objects and colors. She can follow one-step commands. She is oriented to her name but not her age, the place, month, or year. Long and short-term memory is poor. Her mood is reasonable. She is somewhat restless and then she wants to stand up moved to the chair sit down, stand up moved to the bed and sit down alternatively. She is directable and fairly come. She is not agitated or hitting. The discs are difficult to visualize bilaterally. Pupils are 3 mm bilaterally and reactive to light. Extraocular eye muscles are intact without nystagmus. Visual acuity and visual heller seem normal grossly to confrontation. There are no deficits to sensation in the face in all 3 distributions of the fifth cranial nerve bilaterally. Corneal reflexes are positive bilaterally. Facial strength and symmetry was normal bilaterally. Hearing seems mildly decreased bilaterally. Palate moves well without asymmetry. There is normal sternocleidomastoid and trapezius (shoulder shrug) strength bilaterally. Tongue is midline with good strength bilaterally. Neck has a full range of motion without discomfort. There are no cervical bruits bilaterally. There are no cranial or ocular bruits. Heart is without murmur. There is a regular rhythm and rate. Cervical, thoracic, and lumbar spine are nontender to palpation. Gait is narrow based, decreased arm swing and stiff turns. She pivots well from bed to chair. With outstretched arms there is no drift. There are no resting, postural, or action tremors. There is no ataxia with finger to nose testing. There is decrease facility in the hands. No other abnormal involuntary movements are noted. Motor strength is 5/5 diffusely in the arms bilaterally including deltoids, biceps, triceps, brachioradialis, wrist flexors and extensors, weight shifter, and intrinsic hand muscles. Motor strength is 5/5 diffusely in the legs bilaterally including hip flexors, quadriceps, hamstrings, gastrocnemius, tibialis anterior, tibialis posterior, and Peroneii muscles. Toe extensors are normal and there is good bulk in the extensor digitorum brevis muscles bilaterally. The limbs have mildly increased tone. There is no atrophy noted in the muscles. Muscle bulk is normal, there is no tenderness to palpation, no myotonia to percussion, and no fasciculations seen. Sensory examination is intact to touch and pin throughout all 4 limbs diffusely. Reflexes are 2/4 in the biceps, triceps, brachioradialis, and quadriceps tendons bilaterally. Achilles tendon reflexes are absent on the left and trace on the right. There is no clonus bilaterally. Toes are downgoing with plantar stimulation bilaterally. Peripheral pulses are present and of normal quality distally in all 4 limbs. There is no peripheral edema noted in the limbs. Results & Data Vital Signs (Past 12 Hours) Vital Signs Temp Pulse Resp BP Pulse Ox 02/06/19 07:27 36.8 C 89 18 160/83 H 94 02/06/19 03:05 36.5 C 86 20 158/81 H 96 02/05/19 23:06 36.6 C 79 19 136/83 95 PG Care Time/CCT Total # of Minutes Spent Total Time Spent with Patient: Total time spent is greater than 50% in coordination of care (as documented) at patient's floor/unit and/or counseling patient:
[2019-02-06] MEDS: MEMANTINE HCL 5 MG TAB PO SCH ×2 (08:07→20:45)
[2019-02-06] MEDS: SODIUM CHLORIDE 0.9% 1000ML 1,000 ML IV SCH (08:07)
[2019-02-06] MEDS: CHOLECALCIFEROL 1,000 UNITS TAB PO SCH (08:07)
[2019-02-06] MEDS: ATORVASTATIN 20 MG TAB PO SCH (08:07)
[2019-02-06] MEDS: SERTRALINE HCL 50 MG TABLET PO SCH (08:07)
[2019-02-06] MEDS: CEROVITE ADV FORMULA TAB PO SCH (08:07)
[2019-02-06] MEDS: DONEPEZIL HCL 5 MG TAB PO SCH (08:07)
[2019-02-06] MEDS: ASPIRIN 81 MG ECTAB PO SCH (08:07)
[2019-02-06] MEDS: POLYETHYLENE (MIRALAX) 17 GM PACK PO SCH (08:08)
[2019-02-06] MEDS: PANTOprazole 40 MG TAB PO SCH ×2 (08:08→20:45)
[2019-02-06] MEDS: FAMOTIDINE 20 MG TAB PO SCH (08:08)
[2019-02-06] MEDS: risperiDONE ODT 0.5 MG SOLTAB PO SCH ×3 (08:10→20:44)
[2019-02-06 10:01] LABS: Estimated Average Glucose 120 mg/dl; Hemoglobin A1C 5.8 % (4.5-5.6)
[2019-02-06] MEDS ORDERED: risperiDONE ODT 0.5 MG SOLTAB PO STA (12:43)
--- NOTE | 2019-02-06 12:51 | XRay Report ---
TWO VIEW CHEST CLINICAL HISTORY: Hypoxia. FINDINGS: PA and lateral chest radiographs are compared to study dated 02/05/2019 and correlated with chest CT dated 02/09/2018. The PA view is degraded by patient rotation. The heart is enlarged noting atherosclerotic calcification of the thoracic aorta. There is mild pulmonary vascular congestion. Ca lcified mediastinal and hilar lymph nodes are again noted. Chronic elevation of the right hemidiaphra gm is similar to previous. There is bibasilar atelectasis. No pleural effusion is seen. There is no p neumothorax. The skeletal structures are osteopenic. The bony thorax appears intact. A left shoulder arthroplasty is in place. Fusion hardware is noted in the lumbar spine. Degenerative change and compr ession deformities are noted in the spine. IMPRESSION: Cardiomegaly with mild pulmonary vascular congestion. Electronically signed by: Doyle Kaplan M.D. 02/06/2019 12:50 PM
[2019-02-06] MEDS ORDERED: FUROSEMIDE 20 MG in SYRINGE 0 ML IV ONE (14:00)
--- NOTE | 2019-02-06 17:38 | Hospitalist Progress Note ---
Date of Service February 06, 2019 Assessment & Plan (1) TIA (transient ischemic attack): Appreciate neurology consultation. It is believed that the patient may have had a TIA leading to left-sided weakness. Neuro exam is now normal. I agree w/ Dr Aguilar that obtaining an MRI would be difficult if not impossible given her agitation; thus, will defer for now. PT, OT, speech evals. Asa 81mg daily for secondary prevention. Cont statin. Lipids are indeed controlled. (2) Volume overload: Patient appears volume overloaded clinically and radiographically. Stop IVF. Lasix 20mg IV x 1. Volume overload likely explains hypoxia. (3) Dementia with behavioral disturbance: Continue home meds but may need adjustment in risperdal and/or ativan. (4) Mejia's esophagus: Continue PPI twice daily. (5) Dyslipidemia: Continue statin. (6) Hearing loss: Noted. (7) GERD (gastroesophageal reflux disease): Continue PPI twice daily. (8) Hypertension: Not on meds for such at SNF. Cont to monitor and if BPs remain high then start meds. (9) DVT prophylaxis: Heparin SC. Given the volume overload and dementia w/ behavioral disturbance -- will change observation status to admisssion status. I certify that the inpatient services were ordered in accordance with Medicare regulations governing the order. This includes certification that hospital inpatient services are reasonable and necessary and in the case of services not specified as inpatient-only under 42 CFR 419.22(n), that they are appropriately provided as inpatient services in accordance to with the 2-midnight benchmark under 43 CFR 412.3(e) Subjective patient sitting in chair during the visit. nursing staff report intermittent episodes of agitation. in fact, at one point, she said to the nurse "I'm sorry I gave you a hard time." she was oriented to person and place but not time. denied any focal weakness. she could not provide any additional meaningful history because of dementia. Review of Systems Review of Systems: Unobtainable due to cognitive status Physical Exam Constitutional: well developed, well nourished and + altered mental status; no acute distress ENMT: external ear and nose normal, oropharynx normal Respiratory: no respiratory distress Auscultation: + diminished lung sounds (bases) and + crackles (bases) Cardiovascular: Rate/Rhythm: regular rate and regular rhythm Heart Sounds: normal S1 and normal S2; no murmur Vessels: + JVD, posterior tibial pulses present and dorsalis pedis pulses present Extremities: + edema (1+ b/l ) Gastrointestinal (Abdomen): normal bowel sounds, soft, nontender, no hepatosplenomegaly Neurologic: moves all extremities (5/5 x 4 exts; no facial droop) and + confused; no focal motor deficits Psychiatric: Orientation: alert, oriented to person and oriented to place; + not oriented to time Results & Data Vital Signs (Past 12 Hours) Vital Signs Temp Pulse Resp BP Pulse Ox 02/06/19 14:49 36.5 C 95 H 18 136/85 91 02/06/19 11:05 36.5 C 95 H 18 152/96 H 94 02/06/19 07:27 36.8 C 89 18 160/83 H 94 Laboratory Results bmp wnl echo results noted (EF 70%, normal valve function) PG Care Time/CCT Total # of Minutes Spent Total Time Spent with Patient: Total time spent is greater than 50% in coordination of care (as documented) at patient's floor/unit and/or counseling patient: (1) Dementia with behavioral disturbance Dementia type: Alzheimer's disease Alzheimer's disease onset: unspecified onset Qualified Code(s): G30.9 - Alzheimer's disease, unspecified; F02.81 - Dementia in other diseases classified elsewhere with behavioral disturbance (2) Hearing loss Hearing loss type: unspecified Laterality: bilateral Qualified Code(s): H91.93 - Unspecified hearing loss, bilateral (3) GERD (gastroesophageal reflux disease) Esophagitis presence: esophagitis presence not specified Qualified Code(s): K21.9 - Gastro-esophageal reflux disease without esophagitis (4) Hypertension Hypertension type: essential hypertension Qualified Code(s): I10 - Essential (primary) hypertension (5) Volume overload Hypervolemia type: unspecified Qualified Code(s): E87.70 - Fluid overload, unspecified
[2019-02-06] MEDS: TRAZODONE HCL 100 MG TAB PO SCH (20:48)
[2019-02-06] MEDS: TRAMADOL HCL 50 MG TABLET PO PRN (21:46)
[2019-02-07] MEDS: HEPARIN SOD 5,000 UNIT/0.5 ML VIAL SQ SCH ×3 (05:49→20:27)
[2019-02-07] MEDS: LEVOTHYROXINE SODIUM 100 MCG TABLET PO SCH (05:49)
[2019-02-07 06:50] LABS: Basophils # (auto) 0.01 K/uL (0-0.2); Basophils % (auto) 0.2 %; Eosinophils # (auto) 0.07 K/uL (0-0.5); Eosinophils % (auto) 1.1 %; Hematocrit (blood only) 38.6 % (37-47); Hemoglobin 12.5 g/dL (12.0-16.0); Lymphocytes # (auto) 0.99 K/uL (1.2-3.4); Lymphocytes % (auto) 15.6 %; Mean Corpuscular Hemoglobin 31.2 pg (25-34); Mean Corpuscular Hgb Conc 32.4 g/dL (32-36); Mean Corpuscular Volume 96.3 fL (80-100); Mean Platelet Volume 8.9 fL (7.4-10.4); Monocytes # (auto) 0.54 K/uL (0.11-0.59); Monocytes % (auto) 8.5 %; Neutrophils # (auto) 4.74 K/uL (1.4-6.5); Neutrophils % (auto) 74.6 %; Platelet Count 224 K/uL (130-400); RDW Coefficient of Variation 13.7 % (11.5-14.5); RDW Standard Deviation 48.3 fL (36.4-46.3); Red Blood Count 4.01 M/uL (4.2-5.4); White Blood Count 6.35 K/uL (4.8-10.8)
[2019-02-07 07:19] LABS: BUN Creatinine Ratio 24.8 (10-20); Calcium 9.4 mg/dl (8.5-10.1); Creatinine Clr Calc Pharmacy 63.9 ml/min; Est GFR (African American) 87.9; Est GFR (Non-African American) 75.8; Potassium 3.9 mmol/L (3.5-5.1)
[2019-02-07] MEDS ORDERED: FUROSEMIDE 20 MG in SYRINGE 0 ML IV ONE (08:00)
[2019-02-07] MEDS: TRAMADOL HCL 50 MG TABLET PO PRN ×2 (08:48→20:28)
[2019-02-07] MEDS: DONEPEZIL HCL 5 MG TAB PO SCH (08:49)
[2019-02-07] MEDS: FAMOTIDINE 20 MG TAB PO SCH (08:49)
[2019-02-07] MEDS: ATORVASTATIN 20 MG TAB PO SCH (08:49)
[2019-02-07] MEDS: SERTRALINE HCL 50 MG TABLET PO SCH (08:49)
[2019-02-07] MEDS: PANTOprazole 40 MG TAB PO SCH ×2 (08:49→20:27)
[2019-02-07] MEDS: CHOLECALCIFEROL 1,000 UNITS TAB PO SCH (08:49)
[2019-02-07] MEDS: LORazepam 0.5 MG TAB PO SCH ×3 (08:49→20:25)
[2019-02-07] MEDS: MEMANTINE HCL 5 MG TAB PO SCH ×2 (08:50→20:26)
[2019-02-07] MEDS: CEROVITE ADV FORMULA TAB PO SCH (08:50)
[2019-02-07] MEDS: ASPIRIN 81 MG ECTAB PO SCH (08:50)
[2019-02-07] MEDS: POLYETHYLENE (MIRALAX) 17 GM PACK PO SCH (08:50)
[2019-02-07] MEDS: risperiDONE ODT 0.5 MG SOLTAB PO SCH ×3 (08:50→20:27)
[2019-02-07] MEDS: METOPROLOL TARTRATE 25 MG TAB PO SCH ×2 (10:08→20:25)
--- NOTE | 2019-02-07 10:46 | Neurology Progress Note ---
Date of Service February 07, 2019 Assessment & Plan (1) TIA (transient ischemic attack): (2) Dementia with behavioral disturbance: (3) Hypertension: Patient had an episode February 05 of possible right-sided weakness and speech problems. I am not certain she had a true hemiparesis but I cannot exclude this since it was not present at the residential. By the time she got to the emergency room her symptoms have resolved and she has remained without focal neurologic deficit since. She has no meningeal signs or encephalopathy. She remains without any dysarthria or aphasia and has no focal weakness. Therefore, a brief TIA is possible, but vasospasm from hypertension and hypoxia is possible. She had an elevated blood pressure on admission and decreased O2 saturation. With oxygen her O2 saturation is normal and her blood pressure is better today. Patient has a history of significant dementia of a progressive nature with behavioral disturbance. This is consistent with a senile dementia of the Alzheimer's type. She is on maximum medical therapy for this. Today she is not overly aggressive and is able to follow commands and listened/be redirected fairly easily. Recommendations: 1. Control blood pressure as you are doing, aiming for a mean arterial pressure of approximately 100. Be careful not to over correct. 2. Continue with atorvastatin 20 milligrams daily. She would not be a high dose statin candidate anyway. 3. Continue with memantine and donepezil at current doses. 4. Continue with sertraline, trazodone, and risperidone at her usual ptosis. 5. I do not see a need for an MRI of the brain at this time. I do not believe this would change our treatment plan. 6. Continue with 81 milligram aspirin tablet daily. Overall, I spent a total of 25 minutes with this case including review of records, direct evaluation the patient at bedside, and discussion of the case with the patient and nursing staff at bedside, and Dr. Garza, including differential diagnosis and treatment options. Subjective Patient complains of some low back pain. She denies pain in her head or limbs. She has been up several times to urinate this morning. She walks with a walker on her own with minimal assistance. She can navigate the walker fairly well as I witnessed her move around her tray. She is not dizzy. Blood pressure is 167/85. CBC and Chem profile today were unremarkable. Physical Exam Physical Exam: She is awake and alert. Speech is sparse but understandable using 1 word at a time. She follows one-step commands very well. She is a little hard of hearing but seems to comprehend. Extraocular eye muscles are intact without nystagmus. There is no facial droop. Strength is 5/5 diffusely in all major muscle groups in the arms and legs both proximally and distally. Gait is slow and shuffling but she uses a walker for support. Results & Data Vital Signs (Past 12 Hours) Vital Signs Temp Pulse Resp BP Pulse Ox 02/07/19 07:08 36.8 C 90 20 167/85 H 93 02/07/19 05:00 36.9 C 97 H 17 158/82 H 99 02/06/19 22:57 36.8 C 80 19 158/90 H 95 PG Care Time/CCT Total # of Minutes Spent Total Time Spent with Patient: Total time spent is greater than 50% in coordination of care (as documented) at patient's floor/unit and/or counseling patient: (1) Dementia with behavioral disturbance Dementia type: Alzheimer's disease Alzheimer's disease onset: unspecified onset Qualified Code(s): G30.9 - Alzheimer's disease, unspecified; F02.81 - Dementia in other diseases classified elsewhere with behavioral disturbance (2) Hypertension Hypertension type: essential hypertension Qualified Code(s): I10 - Essential (primary) hypertension
--- NOTE | 2019-02-07 20:17 | Hospitalist Progress Note ---
Date of Service February 07, 2019 Assessment & Plan (1) TIA (transient ischemic attack): Appreciate neurology consultation. It is believed that the patient may have had a TIA leading to right-sided weakness at time of admission. The right-sided weakness appeared to have resolved. I agree w/ Dr Aguilar that obtaining an MRI would be difficult if not impossible given her agitation; thus, will defer for now. She now appears however to be leaning towards right side when sitting -- does she have weakness on that side? If this persists consider repeat CT head, at minimum. PT, OT, speech evals appreciated. Asa 81mg daily for secondary prevention. Cont statin. Lipids are controlled on most recent profile. (2) Volume overload: Patient appeared volume overloaded clinically and radiographically in the first 24 hours of stay. Hypoxia explained by such? S/p lasix IV x 2 doses. Exam today looks euvolemic. Attempt to wean NC O2 off today. If unable to wean - cause of ongoing hypoxia?? Consider advanced imaging (CT chest) if NC O2 requirement continues. (3) Dementia with behavioral disturbance: Continue home meds but may need adjustment in risperdal and/or ativan. (4) Mejia's esophagus: Continue PPI twice daily. (5) Dyslipidemia: Continue statin. Controlled. (6) Hearing loss: Noted. Severe. (7) GERD (gastroesophageal reflux disease): Continue PPI twice daily. (8) Hypertension: Not on meds for such at SNF. We have been simply monitoring and the BPs have improved without intervention. Will cont to monitor OFF of any meds. (9) DVT prophylaxis: Heparin SC. Updated family by phone this evening (02/07). Pt is from [facility] - PT/OT to help determine if able to return there or need higher level of care. If stable on tele overnight can move to med/surg tomorrow. Subjective by report patient has been up at night for the last 2 nights. thus, during my visit today, she was sleepy. a nurse's aid was at bedside assisting her with her meal. although she was sitting upright at the bedside she kept leaning/listing to the RIGHT. staff report, however, that with ambulating to bathroom there doesn't appear to be any focal weakness. staff also report excellent appetite. tele stable overnight. patient was unable to provide any meaningful history. still requiring minimal amount of O2. Review of Systems Review of Systems: Unobtainable due to cognitive status (dementia) Physical Exam Constitutional: well developed, well nourished and + altered mental status; no acute distress sitting at side of bed - leaning towards right and back ENMT: external ear and nose normal, oropharynx normal Respiratory: no respiratory distress Auscultation: + diminished lung sounds (minimal - bases); no crackles and no wheezes Cardiovascular: Rate/Rhythm: regular rate and regular rhythm Heart Sounds: normal S1 and normal S2; no murmur Vessels: posterior tibial pulses present and dorsalis pedis pulses present; no JVD Extremities: + edema (trace (much improved from prior exams)) Gastrointestinal (Abdomen): normal bowel sounds, soft, nontender, no hepatosplenomegaly Neurologic: + confused neuro exam was difficult today because she was so sleepy; handgrip, however, seemed 5/5; unable to determine lower extremity strength Psychiatric: Orientation: alert, oriented to person and oriented to place; + not oriented to time Results & Data Vital Signs (Past 12 Hours) Vital Signs Temp Pulse Resp BP Pulse Ox 02/07/19 18:44 36.5 C 73 18 146/81 H 96 02/07/19 15:24 36.9 C 74 20 130/76 95 02/07/19 11:04 36.7 C 89 22 130/82 96 Laboratory Results Laboratory Results - last 24 hr 02/07/19 02/07/19 06:03 06:03 WBC 6.35 RBC 4.01 L Hgb 12.5 Hct 38.6 MCV 96.3 MCH 31.2 MCHC 32.4 RDW Std Deviation 48.3 H RDW Coeff of [place] 13.7 Plt Count 224 MPV 8.9 Immature Gran % (Auto) 0.0 Neut % (Auto) 74.6 Lymph % (Auto) 15.6 [place] % (Auto) 8.5 Eos % (Auto) 1.1 Baso % (Auto) 0.2 Immature Gran # (Auto) 0.00 Neut # (Auto) 4.74 Lymph # (Auto) 0.99 L [place] # (Auto) 0.54 Eos # (Auto) 0.07 Baso # (Auto) 0.01 Sodium 140 Potassium 3.9 Chloride 104 Carbon Dioxide 31 Anion Gap 5.0 BUN 19 H Creatinine 0.75 Est Cr Clr Drug Dosing 63.9 Est GFR ( Amer) 87.9 Est GFR (Non-Af Amer) 75.8 BUN/Creatinine Ratio 24.8 H Glucose 99 Calcium 9.4 PG Care Time/CCT Total # of Minutes Spent Total Time Spent with Patient: Total time spent is greater than 50% in coordination of care (as documented) at patient's floor/unit and/or counseling patient: (1) Dementia with behavioral disturbance Alzheimer's disease onset: unspecified onset Dementia type: Alzheimer's disease Qualified Code(s): G30.9 - Alzheimer's disease, unspecified; F02.81 - Dementia in other diseases classified elsewhere with behavioral disturbance (2) Hearing loss Hearing loss type: unspecified Laterality: bilateral Qualified Code(s): H91.93 - Unspecified hearing loss, bilateral (3) GERD (gastroesophageal reflux disease) Esophagitis presence: esophagitis presence not specified Qualified Code(s): K21.9 - Gastro-esophageal reflux disease without esophagitis (4) Hypertension Hypertension type: essential hypertension Qualified Code(s): I10 - Essential (primary) hypertension (5) Volume overload Hypervolemia type: unspecified Qualified Code(s): E87.70 - Fluid overload, unspecified
[2019-02-07] MEDS: TRAZODONE HCL 100 MG TAB PO SCH (20:26)
[2019-02-08] MEDS: LEVOTHYROXINE SODIUM 100 MCG TABLET PO SCH (05:43)
[2019-02-08] MEDS: HEPARIN SOD 5,000 UNIT/0.5 ML VIAL SQ SCH ×2 (05:44→13:06)
[2019-02-08 07:55] LABS: BUN Creatinine Ratio 23.5 (10-20); Calcium 9.2 mg/dl (8.5-10.1); Creatinine Clr Calc Pharmacy 49.4 ml/min; Est GFR (African American) 64.4; Est GFR (Non-African American) 55.5; Magnesium 2.1 mg/dl (1.8-2.4); Potassium 4.2 mmol/L (3.5-5.1)
[2019-02-08] MEDS: TRAMADOL HCL 50 MG TABLET PO PRN (08:01)
[2019-02-08] MEDS: LORazepam 0.5 MG TAB PO SCH ×4 (08:01→20:07)
[2019-02-08] MEDS: PANTOprazole 40 MG TAB PO SCH ×3 (08:02→20:08)
[2019-02-08] MEDS: FAMOTIDINE 20 MG TAB PO SCH ×2 (08:02→09:27)
[2019-02-08] MEDS: ATORVASTATIN 20 MG TAB PO SCH ×2 (08:02→09:26)
[2019-02-08] MEDS: METOPROLOL TARTRATE 25 MG TAB PO SCH ×3 (08:02→20:07)
[2019-02-08] MEDS: ASPIRIN 81 MG ECTAB PO SCH ×2 (08:02→09:26)
[2019-02-08] MEDS: SERTRALINE HCL 50 MG TABLET PO SCH ×2 (08:02→09:27)
[2019-02-08] MEDS: DONEPEZIL HCL 5 MG TAB PO SCH ×2 (08:02→09:26)
[2019-02-08] MEDS: MEMANTINE HCL 5 MG TAB PO SCH ×3 (08:02→20:08)
[2019-02-08] MEDS: CHOLECALCIFEROL 1,000 UNITS TAB PO SCH ×2 (08:02→09:27)
[2019-02-08] MEDS: CEROVITE ADV FORMULA TAB PO SCH ×2 (08:02→09:27)
[2019-02-08] MEDS: risperiDONE ODT 0.5 MG SOLTAB PO SCH ×4 (08:02→20:08)
[2019-02-08] MEDS: POLYETHYLENE (MIRALAX) 17 GM PACK PO SCH ×2 (08:03→09:27)
[2019-02-08] MEDS ORDERED: LORazepam 2 MG/4 ML VIAL ONE ×2 (08:14→10:59)
[2019-02-08] MEDS ORDERED: OLANZapine 10 MG/2.1 ML SDV IM STA (10:55)
[2019-02-08] MEDS ORDERED: LORazepam 0.25 MG/0.5 ML VIAL IV STA (10:55)
--- NOTE | 2019-02-08 14:46 | Hospitalist Progress Note ---
Date of Service February 08, 2019 Assessment & Plan (1) TIA (transient ischemic attack): It is believed that the patient may have had a TIA leading to right-sided weakness at time of admission. The right-sided weakness appeared to have resolved. - PT, OT, speech evals appreciated. - ASA 81mg daily for secondary prevention. - Cont statin. (2) Volume overload: Patient appeared volume overloaded clinically and radiographically in the first 24 hours of stay. - S/p lasix IV x 2 doses. - Exam today looks euvolemic - Unable to ascertain any shortness of breath given her current status. (3) Dementia with behavioral disturbance: At baseline has dementia with neurology visits. - Continue home meds but may need adjustment in Risperdal and/or Ativan. - Today she is spitting her pills. Will given sparing IV meds as needed for safety. (4) Mejia's esophagus: Cannot really assess any symptoms. - Continue PPI twice daily as able (5) Dyslipidemia: Continue statin. Controlled. (6) Hearing loss: Noted. Severe. (7) GERD (gastroesophageal reflux disease): Continue PPI twice daily. (8) Hypertension: Not on meds for such at SNF. BP today is 140/80. - We have been simply monitoring and the BPs have improved without intervention. - Will cont to monitor OFF of any meds. (9) DVT prophylaxis: Heparin 5000 units SC Q8h Subjective Unfortunately delirious. When awake, she is swinging and attacking staff. When even given light doses of medication, she is asleep. Review of Systems Review of Systems: Unobtainable due to cognitive status Physical Exam Constitutional: + physical limitations, + combative and + lethargic; + uncooperative Eyes: EOM intact bilaterally; no conjunctival abnormality ENMT: external ear and nose normal, oropharynx normal Neck: trachea midline, no thyromegaly normal visual inspection Respiratory: normal respiratory effort, lungs clear to auscultation no respiratory distress Cardiovascular: RRR, no murmur, no edema Gastrointestinal (Abdomen): Inspection/Auscultation: abdomen normal to inspection; abdomen not distended Musculoskeletal: no cyanosis or clubbing, extremities motor strength 5/5 Skin: no rashes, warm and dry Neurologic: moves all extremities; + not awake Psychiatric: Orientation: + not alert, + not oriented to person and + uncooperative Results & Data Vital Signs (Past 12 Hours) Vital Signs Temp Pulse Resp BP Pulse Ox 02/08/19 11:20 36.6 C 91 H 24 141/79 H 92 02/08/19 11:00 85 02/08/19 06:52 36.6 C 72 16 115/63 98 02/08/19 03:14 36.5 C 67 20 102/61 94 PG Care Time/CCT Total # of Minutes Spent Total Time Spent with Patient: Total time spent is greater than 50% in coordination of care (as documented) at patient's floor/unit and/or counseling patient: (1) Volume overload Hypervolemia type: unspecified Qualified Code(s): E87.70 - Fluid overload, unspecified (2) Dementia with behavioral disturbance Dementia type: Alzheimer's disease Alzheimer's disease onset: unspecified onset Qualified Code(s): G30.9 - Alzheimer's disease, unspecified; F02.81 - Dementia in other diseases classified elsewhere with behavioral disturbance (3) Hearing loss Hearing loss type: unspecified Laterality: bilateral Qualified Code(s): H91.93 - Unspecified hearing loss, bilateral (4) GERD (gastroesophageal reflux disease) Esophagitis presence: esophagitis presence not specified Qualified Code(s): K21.9 - Gastro-esophageal reflux disease without esophagitis (5) Hypertension Hypertension type: essential hypertension Qualified Code(s): I10 - Essential (primary) hypertension
[2019-02-08] MEDS: TRAZODONE HCL 100 MG TAB PO SCH (20:07)
[2019-02-09] MEDS: TRAMADOL HCL 50 MG TABLET PO PRN ×2 (04:54→16:48)
[2019-02-09] MEDS: LEVOTHYROXINE SODIUM 100 MCG TABLET PO SCH (06:10)
[2019-02-09] MEDS: MEMANTINE HCL 5 MG TAB PO SCH ×2 (07:52→20:45)
[2019-02-09] MEDS: DONEPEZIL HCL 5 MG TAB PO SCH (07:52)
[2019-02-09] MEDS: ASPIRIN 81 MG ECTAB PO SCH (07:52)
[2019-02-09] MEDS: METOPROLOL TARTRATE 25 MG TAB PO SCH (07:53)
[2019-02-09] MEDS: POLYETHYLENE (MIRALAX) 17 GM PACK PO SCH (07:53)
[2019-02-09] MEDS: SERTRALINE HCL 50 MG TABLET PO SCH (07:53)
[2019-02-09] MEDS: risperiDONE ODT 0.5 MG SOLTAB PO SCH ×3 (07:54→20:45)
[2019-02-09] MEDS: LORazepam 0.5 MG TAB PO SCH ×3 (07:56→16:48)
[2019-02-09] MEDS: FAMOTIDINE 20 MG TAB PO SCH (07:59)
[2019-02-09] MEDS: PANTOprazole 40 MG TAB PO SCH ×2 (07:59→20:45)
[2019-02-09] MEDS: ATORVASTATIN 20 MG TAB PO SCH (08:00)
--- NOTE | 2019-02-09 16:23 | Hospitalist Progress Note ---
Date of Service February 09, 2019 Assessment & Plan (1) TIA (transient ischemic attack): It is believed that the patient may have had a TIA leading to right-sided weakness at time of admission. The right-sided weakness appeared to have resolved. - PT, OT, speech evals appreciated. - ASA 81mg daily for secondary prevention. - Cont statin. - No further weakness today on exam. Patient is unsteady, but able to ambulate. (2) Volume overload: Patient appeared volume overloaded clinically and radiographically in the first 24 hours of stay. Echo on 02/06 showed EF 55-60%. I would consider this mild exacerbation of HFpEF. - S/p lasix IV x 2 doses. - Exam today looks euvolemic - Unable to ascertain any shortness of breath given her dementia. (3) Dementia with behavioral disturbance: At baseline has dementia with neurology visits. - Continue home meds but may need adjustment in Risperdal and/or Ativan. - Today she is spitting her pills. Will given sparing IV meds as needed for safety. (4) Mejia's esophagus: Cannot really assess any symptoms. - Continue PPI twice daily as able (5) Dyslipidemia: Continue statin. Controlled. (6) Hearing loss: Noted. Severe. (7) GERD (gastroesophageal reflux disease): Continue PPI twice daily. (8) Hypertension: Not on meds for such at SNF. - Will cont to monitor OFF of any meds. BP today is 100/65. - Will lower metop to daily XL dosing. (9) DVT prophylaxis: Heparin 5000 units SC Q8h Subjective Unable to answer my questions due to her dementia. Review of Systems Review of Systems: Unobtainable due to cognitive status Physical Exam Constitutional: + physical limitations and + combative; + uncooperative and not lethargic Eyes: EOM intact bilaterally; no conjunctival abnormality ENMT: external ear and nose normal, oropharynx normal Neck: trachea midline, no thyromegaly normal visual inspection Respiratory: normal respiratory effort, lungs clear to auscultation no respiratory distress Cardiovascular: RRR, no murmur, no edema Gastrointestinal (Abdomen): Inspection/Auscultation: abdomen normal to inspection; abdomen not distended Musculoskeletal: no cyanosis or clubbing, extremities motor strength 5/5 Skin: no rashes, warm and dry Neurologic: moves all extremities; + not awake Psychiatric: Orientation: alert; + not oriented to person and + uncooperative Results & Data Vital Signs (Past 12 Hours) Vital Signs Temp Pulse Resp BP Pulse Ox 02/09/19 14:48 36.4 C L 89 16 99/65 L 92 02/09/19 06:51 36.6 C 84 18 126/77 93 PG Care Time/CCT Total # of Minutes Spent Total Time Spent with Patient: Total time spent is greater than 50% in coordination of care (as documented) at patient's floor/unit and/or counseling patient: (1) Volume overload Hypervolemia type: unspecified Qualified Code(s): E87.70 - Fluid overload, unspecified (2) Dementia with behavioral disturbance Dementia type: Alzheimer's disease Alzheimer's disease onset: unspecified onset Qualified Code(s): G30.9 - Alzheimer's disease, unspecified; F02.81 - Dementia in other diseases classified elsewhere with behavioral disturbance (3) Hearing loss Hearing loss type: unspecified Laterality: bilateral Qualified Code(s): H91.93 - Unspecified hearing loss, bilateral (4) GERD (gastroesophageal reflux disease) Esophagitis presence: esophagitis presence not specified Qualified Code(s): K21.9 - Gastro-esophageal reflux disease without esophagitis (5) Hypertension Hypertension type: essential hypertension Qualified Code(s): I10 - Essential (primary) hypertension
[2019-02-09] MEDS: TRAZODONE HCL 100 MG TAB PO SCH (20:45)
[2019-02-10] MEDS: LEVOTHYROXINE SODIUM 100 MCG TABLET PO SCH (06:29)
[2019-02-10] MEDS: LORazepam 0.5 MG TAB PO SCH ×3 (08:03→20:54)
[2019-02-10] MEDS: MEMANTINE HCL 5 MG TAB PO SCH ×2 (08:04→20:54)
[2019-02-10] MEDS: risperiDONE ODT 0.5 MG SOLTAB PO SCH ×3 (08:04→20:54)
[2019-02-10] MEDS: ASPIRIN 81 MG ECTAB PO SCH (08:06)
[2019-02-10] MEDS: METOPROLOL SUCC 25MG EXT REL TAB PO SCH (08:06)
[2019-02-10] MEDS: DONEPEZIL HCL 5 MG TAB PO SCH (08:06)
[2019-02-10] MEDS: ATORVASTATIN 20 MG TAB PO SCH (08:07)
[2019-02-10] MEDS: PANTOprazole 40 MG TAB PO SCH ×2 (08:07→20:55)
[2019-02-10] MEDS: SERTRALINE HCL 50 MG TABLET PO SCH (08:07)
[2019-02-10] MEDS: FAMOTIDINE 20 MG TAB PO SCH (08:08)
[2019-02-10] MEDS: POLYETHYLENE (MIRALAX) 17 GM PACK PO SCH (08:08)
--- NOTE | 2019-02-10 17:02 | Hospitalist Progress Note ---
Date of Service February 10, 2019 Assessment & Plan (1) TIA (transient ischemic attack): It is believed that the patient may have had a TIA leading to right-sided weakness at time of admission. The right-sided weakness appeared to have resolved. - PT, OT, speech evals appreciated. - ASA 81mg daily for secondary prevention. - Cont statin. - No further weakness today on exam. Patient is unsteady, but able to ambulate and is up and around her room. (2) Volume overload: Patient appeared volume overloaded clinically and radiographically in the first 24 hours of stay. Echo on 02/06 showed EF 55-60%. I would consider this mild exacerbation of HFpEF. - S/p lasix IV x 2 doses. - Exam today looks euvolemic - Denies any shortness of breath. (3) Dementia with behavioral disturbance: At baseline has dementia with neurology visits. - Continue home meds but may need adjustment in Risperdal and/or Ativan. - Today she is taking her pills. Will given sparing IV meds as needed for safety. - Will increase her evening risperidone per Dr. Lutz's office visit recommendation on 12/30/2018. (4) Mejia's esophagus: Cannot really assess any symptoms. - Continue PPI twice daily as able (5) Dyslipidemia: Controlled. - Continue statin. (6) Hearing loss: Noted. Severe. (7) GERD (gastroesophageal reflux disease): Continue PPI twice daily. (8) Hypertension: Not on meds for such at SNF. - Will cont to monitor OFF of any meds. BP today is 120/75. - Will continue metop to daily XL dosing at 12.5mg (9) DVT prophylaxis: Heparin 5000 units SC Q8h Subjective Better today. Able to converse and says that she is "nervous about it." When asked what "it" is, she cannot say. Otherwise denies pain and shortness of breath, but cannot really answer other questions clearly. Review of Systems Review of Systems: Unobtainable due to cognitive status Physical Exam Constitutional: + physical limitations and + combative; + uncooperative and not lethargic Eyes: EOM intact bilaterally; no conjunctival abnormality ENMT: external ear and nose normal, oropharynx normal Neck: trachea midline, no thyromegaly normal visual inspection Respiratory: normal respiratory effort, lungs clear to auscultation no respiratory distress Cardiovascular: RRR, no murmur, no edema Gastrointestinal (Abdomen): Inspection/Auscultation: abdomen normal to inspec tion; abdomen not distended Musculoskeletal: no cyanosis or clubbing, extremities motor strength 5/5 Skin: no rashes, warm and dry Neurologic: moves all extremities and awake Psychiatric: Orientation: alert; + not oriented to person and + uncooperative Results & Data Vital Signs (Past 12 Hours) Vital Signs Temp Pulse Resp BP Pulse Ox 02/10/19 15:29 36.8 C 86 16 123/73 92 02/10/19 07:09 36.6 C 90 18 122/73 93 PG Care Time/CCT Total # of Minutes Spent Total Time Spent with Patient: Total time spent is greater than 50% in coordination of care (as documented) at patient's floor/unit and/or counseling patient: (1) Volume overload Hypervolemia type: unspecified Qualified Code(s): E87.70 - Fluid overload, unspecified (2) Dementia with behavioral disturbance Dementia type: Alzheimer's disease Alzheimer's disease onset: unspecified onset Qualified Code(s): G30.9 - Alzheimer's disease, unspecified; F02.81 - Dementia in other diseases classified elsewhere with behavioral disturbance (3) Hearing loss Hearing loss type: unspecified Laterality: bilateral Qualified Code(s): H91.93 - Unspecified hearing loss, bilateral (4) GERD (gastroesophageal reflux disease) Esophagitis presence: esophagitis presence not specified Qualified Code(s): K21.9 - Gastro-esophageal reflux disease without esophagitis (5) Hypertension Hypertension type: essential hypertension Qualified Code(s): I10 - Essential (primary) hypertension
[2019-02-10] MEDS: LORazepam 0.25 MG/0.5 ML VIAL IV PRN (17:39)
[2019-02-10] MEDS: TRAZODONE HCL 100 MG TAB PO SCH (20:55)
[2019-02-10] MEDS ORDERED: risperiDONE 0.5 MG TABLET PO SCH (21:00)
[2019-02-11] MEDS: LEVOTHYROXINE SODIUM 100 MCG TABLET PO SCH (06:31)
[2019-02-11] MEDS: LORazepam 0.5 MG TAB PO SCH ×3 (07:35→20:11)
[2019-02-11] MEDS: risperiDONE ODT 0.5 MG SOLTAB PO SCH (07:36)
[2019-02-11] MEDS: DONEPEZIL HCL 5 MG TAB PO SCH (08:21)
[2019-02-11] MEDS: FAMOTIDINE 20 MG TAB PO SCH (08:21)
[2019-02-11] MEDS: MEMANTINE HCL 5 MG TAB PO SCH ×2 (08:21→20:11)
[2019-02-11] MEDS: ATORVASTATIN 20 MG TAB PO SCH (08:21)
[2019-02-11] MEDS: ASPIRIN 81 MG ECTAB PO SCH (08:21)
[2019-02-11] MEDS: POLYETHYLENE (MIRALAX) 17 GM PACK PO SCH (08:21)
[2019-02-11] MEDS: PANTOprazole 40 MG TAB PO SCH ×2 (08:22→20:11)
[2019-02-11] MEDS: METOPROLOL SUCC 25MG EXT REL TAB PO SCH (08:22)
[2019-02-11] MEDS: SERTRALINE HCL 50 MG TABLET PO SCH (08:22)
[2019-02-11] MEDS: LORazepam 0.25 MG/0.5 ML VIAL IV PRN ×2 (09:54→18:26)
[2019-02-11] MEDS ORDERED: LORazepam 0.5 MG TAB PO PRN (10:39)
--- NOTE | 2019-02-11 10:48 | Hospitalist Progress Note ---
Date of Service February 11, 2019 Assessment & Plan (1) Dementia with behavioral disturbance: At baseline has dementia with neurology visits. - Continue home meds but may need adjustment in Risperdal and/or Ativan. - Today she is taking her pills. Will given sparing IV meds as needed for sa renee. - Increased her evening risperidone to [address] PO [address]HS per Dr[address] Lutz's office visit recommendation on 12/30/2018. - On 02/11, put in additional Ativan PO/IV orders as she is quite agitated today and hitting staff. She did take her morning medications, so they are clearly not cutting it. (2) TIA (transient ischemic attack): It is believed that the patient may have had a TIA leading to right-sided weakness at time of admission. The right-sided weakness appeared to have resolved. - PT, OT, speech evals appreciated. - ASA 81mg daily for secondary prevention. - Cont statin. - No further weakness today on exam. She is up and walking the halls. (3) Hypertension: Not on meds for such at SNF. - BP today is 135/75. - Will continue metop to daily XL dosing at 12.5mg (4) Volume overload: Patient appeared volume overloaded clinically and radiographically in the first 24 hours of stay. Echo on 02/06 showed EF 55-60%. I would consider this mild exacerbation of HFpEF. - S/p lasix IV x 2 doses. - Exam today looks euvolemic - Unable to tell me any shortness of breath today due to agitation. (5) Mejia's esophagus: Cannot really assess any symptoms. - Continue PPI twice daily as able (6) Dyslipidemia: Controlled. - Continue statin. (7) Hearing loss: Noted. Severe. (8) GERD (gastroesophageal reflux disease): Continue PPI twice daily. (9) DVT prophylaxis: Ambulation - She is up and walking and moving constantly, so I do not think chemoprophylaxis is necessary. In fact, could be a risk if she falls. Subjective More agitated today. She reports breakfast was "horrible," and asks that I contact her Mom and Pop. She cannot answer her ROS. Review of Systems Review of Systems: Unobtainable due to cognitive status Physical Exam Constitutional: + physical limitations and + combative; + uncooperative and not lethargic Eyes: EOM intact bilaterally; no conjunctival abnormality ENMT: external ear and nose normal, oropharynx normal Neck: trachea midline, no thyromegaly normal visual inspection Respiratory: normal respiratory effort, lungs clear to auscultation no respiratory distress Cardiovascular: RRR, no murmur, no edema Gastrointestinal (Abdomen): Inspection/Auscultation: abdomen normal to inspection; abdomen not distended Musculoskeletal: no cyanosis or clubbing, extremities motor strength 5/5 Skin: no rashes, warm and dry Neurologic: moves all extremities and awake Psychiatric: Orientation: alert; + not oriented to person and + uncooperative Results & Data Vital Signs (Past 12 Hours) Vital Signs Temp Pulse Resp BP Pulse Ox 02/11/19 07:15 36.3 C L 89 16 134/75 92 02/11/19 03:58 36.9 C 83 16 128/82 91 PG Care Time/CCT Total # of Minutes Spent Total Time Spent with Patient: Total time spent is greater than 50% in coordination of care (as documented) at patient's floor/unit and/or counseling patient: (1) Volume overload Hypervolemia type: unspecified Qualified Code(s): E87.70 - Fluid overload, unspecified (2) Dementia with behavioral disturbance Dementia type: Alzheimer's disease Alzheimer's disease onset: unspecified onset Qualified Code(s): G30.9 - Alzheimer's disease, unspecified; F02.81 - Dementia in other diseases classified elsewhere with behavioral disturbance (3) Hearing loss Hearing loss type: unspecified Laterality: bilateral Qualified Code(s): H91.93 - Unspecified hearing loss, bilateral (4) GERD (gastroesophageal reflux disease) Esophagitis presence: esophagitis presence not specified Qualified Code(s): K21.9 - Gastro-esophageal reflux disease without esophagitis (5) Hypertension Hypertension type: essential hypertension Qualified Code(s): I10 - Essential (primary) hypertension
[2019-02-11] MEDS ORDERED: LORazepam 0.5 MG/1 ML VIAL IV STA (11:35)
[2019-02-11] MEDS: RISPERIDONE ODT 1MG PO SCH ×2 (14:25→20:11)
[2019-02-11] MEDS: TRAMADOL HCL 50 MG TABLET PO PRN (16:31)
[2019-02-11] MEDS: TRAZODONE HCL 100 MG TAB PO SCH (20:11)
[2019-02-12] MEDS: LEVOTHYROXINE SODIUM 100 MCG TABLET PO SCH (06:11)
[2019-02-12] MEDS: RISPERIDONE ODT 1MG PO SCH ×3 (07:56→20:29)
[2019-02-12] MEDS: LORazepam 0.5 MG TAB PO SCH ×3 (07:56→20:29)
[2019-02-12] MEDS: SERTRALINE HCL 50 MG TABLET PO SCH (07:57)
[2019-02-12] MEDS: DONEPEZIL HCL 5 MG TAB PO SCH (07:57)
[2019-02-12] MEDS: METOPROLOL SUCC 25MG EXT REL TAB PO SCH (08:00)
[2019-02-12] MEDS: MEMANTINE HCL 5 MG TAB PO SCH ×2 (08:01→20:30)
[2019-02-12] MEDS: PANTOprazole 40 MG TAB PO SCH ×2 (08:01→20:30)
[2019-02-12] MEDS: ATORVASTATIN 20 MG TAB PO SCH (08:01)
[2019-02-12] MEDS: ASPIRIN 81 MG ECTAB PO SCH (08:01)
[2019-02-12] MEDS: POLYETHYLENE (MIRALAX) 17 GM PACK PO SCH (08:01)
[2019-02-12] MEDS: FAMOTIDINE 20 MG TAB PO SCH (08:01)
--- NOTE | 2019-02-12 13:07 | Hospitalist Progress Note ---
Date of Service February 12, 2019 Assessment & Plan (1) Dementia with behavioral disturbance: At baseline has dementia with neurology visits. - Continue home meds but may need adjustment in Risperdal and/or Ativan. - Today she is taking her pills. Will given sparing IV meds as needed for sa víctor. - Increased her risperidone to [address] PO [address] per [address] Lutz's office visit recommendation on 12/30/2018. - On 02/12, she is awake and alert, but much calmer and able to have a basic conversation. (2) TIA (transient ischemic attack): It is believed that the patient may have had a TIA leading to right-sided weakness at time of admission. The right-sided weakness appeared to have resolved. - PT, OT, speech evals appreciated. - ASA 81mg daily for secondary prevention. - Cont statin. - No further focal weakness today on exam. She is still able to stand up and ambulate. (3) Hypertension: Not on meds for such at SNF. - BP today is 115/75. - Will continue metop to daily XL dosing at 12.5mg (4) Volume overload: Patient appeared volume overloaded clinically and radiographically in the first 24 hours of stay. Echo on 02/06 showed EF 55-60%. I would consider this mild exacerbation of HFpEF. - S/p lasix IV x 2 doses. - Exam today looks euvolemic - Unable to tell me any shortness of breath today due to agitation. (5) Mejia's esophagus: Has not reported any symptoms during this admission to me or any other provider. - Continue PPI twice daily (6) Dyslipidemia: Controlled. - Continue statin. (7) Hearing loss: Noted. Severe. (8) GERD (gastroesophageal reflux disease): Continue PPI twice daily. (9) DVT prophylaxis: Ambulation - She is up and walking and moving constantly, so I do not think chemoprophylaxis is necessary. In fact, could be a risk if she falls. Subjective Much more low-meredith today. She is in the chair and resting comfortably. She actually has no complaints. Reports no fevers/chills, chest pain, shortness of breath, abdominal pain, nausea, or vomiting. Physical Exam Constitutional: + physical limitations and cooperative; not combative and not lethargic Eyes: EOM intact bilaterally; no conjunctival abnormality ENMT: external ear and nose normal, oropharynx normal Neck: trachea midline, no thyromegaly normal visual inspection Respiratory: normal respiratory effort, lungs clear to auscultation no respiratory distress Cardiovascular: RRR, no murmur, no edema Gastrointestinal (Abdomen): Inspection/Auscultation: abdomen normal to inspection; abdomen not distended Musculoskeletal: no cyanosis or clubbing, extremities motor strength 5/5 Skin: no rashes, warm and dry Neurologic: moves all extremities and awake Psychiatric: Orientation: alert and cooperative; + not oriented to person Results & Data Vital Signs (Past 12 Hours) Vital Signs Temp Pulse Resp BP Pulse Ox 02/12/19 07:04 36.7 C 110 H 16 112/70 94 PG Care Time/CCT Total # of Minutes Spent Total Time Spent with Patient: Total time spent is greater than 50% in coordination of care (as documented) at patient's floor/unit and/or counseling patient: (1) Dementia with behavioral disturbance Dementia type: Alzheimer's disease Alzheimer's disease onset: unspecified onset Qualified Code(s): G30.9 - Alzheimer's disease, unspecified; F02.81 - Dementia in other diseases classified elsewhere with behavioral disturbance (2) Hypertension Hypertension type: essential hypertension Qualified Code(s): I10 - Essential (primary) hypertension (3) Volume overload Hypervolemia type: unspecified Qualified Code(s): E87.70 - Fluid overload, unspecified (4) Hearing loss Hearing loss type: unspecified Laterality: bilateral Qualified Code(s): H91.93 - Unspecified hearing loss, bilateral (5) GERD (gastroesophageal reflux disease) Esophagitis presence: esophagitis presence not specified Qualified Code(s): K21.9 - Gastro-esophageal reflux disease without esophagitis
[2019-02-12] MEDS: TRAMADOL HCL 50 MG TABLET PO PRN (18:06)
[2019-02-12] MEDS: TRAZODONE HCL 100 MG TAB PO SCH (20:30)
[2019-02-13] MEDS: LEVOTHYROXINE SODIUM 100 MCG TABLET PO SCH (05:13)
[2019-02-13] MEDS: PANTOprazole 40 MG TAB PO SCH ×2 (09:44→20:10)
[2019-02-13] MEDS: LORazepam 0.5 MG TAB PO SCH ×3 (09:44→20:10)
[2019-02-13] MEDS: METOPROLOL SUCC 25MG EXT REL TAB PO SCH (09:44)
[2019-02-13] MEDS: ATORVASTATIN 20 MG TAB PO SCH (09:45)
[2019-02-13] MEDS: ASPIRIN 81 MG ECTAB PO SCH (09:45)
[2019-02-13] MEDS: SERTRALINE HCL 50 MG TABLET PO SCH (09:45)
[2019-02-13] MEDS: RISPERIDONE ODT 1MG PO SCH ×3 (09:45→20:09)
[2019-02-13] MEDS: DONEPEZIL HCL 5 MG TAB PO SCH (09:46)
[2019-02-13] MEDS: MEMANTINE HCL 5 MG TAB PO SCH ×2 (09:46→20:09)
[2019-02-13] MEDS: POLYETHYLENE (MIRALAX) 17 GM PACK PO SCH (13:30)
[2019-02-13] MEDS: FAMOTIDINE 20 MG TAB PO SCH (13:30)
--- NOTE | 2019-02-13 14:16 | Hospitalist Progress Note ---
Date of Service February 13, 2019 Assessment & Plan (1) Tachycardia: Vitals show occasional tachycardia. This is difficult to cvicu nurse as auscultation is difficult, and she gets very agitated with even the vitals machine. Given its sporadic nature, could be paroxysmal afib or just sinus tachycardia from her agitation. - EKG if possible (2) Dementia with behavioral disturbance: At baseline has dementia with neurology visits. - Continue home meds but may need adjustment in Risperdal and/or Ativan. - Today she is taking her pills. Will given sparing IV meds as needed for safety. - Increased her risperidone to [address] per [address] Lutz's office visit recommendation on 12/30/2018. - On 02/13, she is fairly agitated again. (3) TIA (transient ischemic attack): It is believed that the patient may have had a TIA leading to right-sided weakness at time of admission. The right-sided weakness appeared to have resolved. - PT, OT, speech evals appreciated. - ASA 81mg daily for secondary prevention. - Cont statin. - No further focal weakness today on exam. She is up and moving around without any aparent weakness. (4) Hypertension: Not on meds for such at SNF. - BP today is 110/75. - Will continue metop to daily XL dosing at 12.5mg (5) Volume overload: Patient appeared volume overloaded clinically and radiographically in the first 24 hours of stay. Echo on 02/06 showed EF 55-60%. I would consider this mild exacerbation of HFpEF. - S/p lasix IV x 2 doses. - Exam today looks euvolemic - Unable to tell me any shortness of breath today due to agitation. (6) Mejia's esophagus: Has not reported any symptoms during this admission to me or any other provider. - Continue PPI twice daily (7) Dyslipidemia: Controlled. - Continue statin. (8) Hearing loss: Noted. Severe. (9) GERD (gastroesophageal reflux disease): Continue PPI twice daily. (10) DVT prophylaxis: Ambulation - She is up and walking and moving constantly, so I do not think chemoprophylaxis is necessary. In fact, could be a risk if she falls. Subjective More restless again today. Up and down in the bed. Per staff, she is doing some swinging at the sitters. Review of Systems Review of Systems: Unobtainable due to cognitive status Physical Exam Constitutional: + physical limitations and + combative; + uncooperative and not lethargic Eyes: EOM intact bilaterally; no conjunctival abnormality ENMT: external ear and nose normal, oropharynx normal Neck: trachea midline, no thyromegaly normal visual inspection Respiratory: normal respiratory effort, lungs clear to auscultation no respiratory distress Cardiovascular: RRR, no murmur, no edema Gastrointestinal (Abdomen): Inspection/Auscultation: abdomen normal to inspection; abdomen not distended Musculoskeletal: no cyanosis or clubbing, extremities motor strength 5/5 Skin: no rashes, warm and dry Neurologic: moves all extremities and awake Psychiatric: Orientation: alert; + not oriented to person and + uncooperative Results & Data Vital Signs (Past 12 Hours) Vital Signs Temp Pulse Resp BP Pulse Ox 02/13/19 10:21 36.4 C L 111 H 16 112/75 91 PG Care Time/CCT Total # of Minutes Spent Total Time Spent with Patient: Total time spent is greater than 50% in coordination of care (as documented) at patient's floor/unit and/or counseling patient: (1) Dementia with behavioral disturbance Dementia type: Alzheimer's disease Alzheimer's disease onset: unspecified onset Qualified Code(s): G30.9 - Alzheimer's disease, unspecified; F02.81 - Dementia in other diseases classified elsewhere with behavioral disturbance (2) Hypertension Hypertension type: essential hypertension Qualified Code(s): I10 - Essential (primary) hypertension (3) Volume overload Hypervolemia type: unspecified Qualified Code(s): E87.70 - Fluid overload, unspecified (4) Hearing loss Hearing loss type: unspecified Laterality: bilateral Qualified Code(s): H91.93 - Unspecified hearing loss, bilateral (5) GERD (gastroesophageal reflux disease) Esophagitis presence: esophagitis presence not specified Qualified Code(s): K21.9 - Gastro-esophageal reflux disease without esophagitis
[2019-02-13] MEDS: LORazepam 0.25 MG/0.5 ML VIAL IV PRN (18:31)
[2019-02-13] MEDS: TRAZODONE HCL 100 MG TAB PO SCH (20:10)
[2019-02-14] MEDS: LEVOTHYROXINE SODIUM 100 MCG TABLET PO SCH (05:00)
[2019-02-14 05:36] LABS: Hematocrit (blood only) 39.2 % (37-47); Hemoglobin 12.5 g/dL (12.0-16.0); Mean Corpuscular Hemoglobin 30.8 pg (25-34); Mean Corpuscular Hgb Conc 31.9 g/dL (32-36); Mean Corpuscular Volume 96.6 fL (80-100); Mean Platelet Volume 9.1 fL (7.4-10.4); Platelet Count 216 K/uL (130-400); RDW Coefficient of Variation 13.3 % (11.5-14.5); RDW Standard Deviation 47.1 fL (36.4-46.3); Red Blood Count 4.06 M/uL (4.2-5.4); White Blood Count 4.71 K/uL (4.8-10.8)
[2019-02-14 06:00] LABS: BUN Creatinine Ratio 24.4 (10-20); Calcium 8.9 mg/dl (8.5-10.1); Creatinine Clr Calc Pharmacy 57.7 ml/min; Est GFR (African American) 77.7; Est GFR (Non-African American) 67.1; Magnesium 2.2 mg/dl (1.8-2.4); Phosphorus 3.4 mg/dl (2.5-4.9); Potassium 4.3 mmol/L (3.5-5.1)
[2019-02-14] MEDS: LORazepam 0.5 MG TAB PO SCH ×3 (08:03→20:02)
[2019-02-14] MEDS: METOPROLOL SUCC 25MG EXT REL TAB PO SCH (08:03)
[2019-02-14] MEDS: PANTOprazole 40 MG TAB PO SCH ×2 (08:03→20:03)
[2019-02-14] MEDS: DONEPEZIL HCL 5 MG TAB PO SCH (08:03)
[2019-02-14] MEDS: ASPIRIN 81 MG ECTAB PO SCH (08:04)
[2019-02-14] MEDS: SERTRALINE HCL 50 MG TABLET PO SCH (08:04)
[2019-02-14] MEDS: MEMANTINE HCL 5 MG TAB PO SCH ×2 (08:04→20:03)
[2019-02-14] MEDS: RISPERIDONE ODT 1MG PO SCH ×3 (08:04→20:03)
[2019-02-14] MEDS: ATORVASTATIN 20 MG TAB PO SCH (08:04)
[2019-02-14] MEDS: TRAMADOL HCL 50 MG TABLET PO PRN ×2 (08:14→13:31)
[2019-02-14] MEDS: POLYETHYLENE (MIRALAX) 17 GM PACK PO SCH (08:15)
[2019-02-14] MEDS: FAMOTIDINE 20 MG TAB PO SCH (08:15)
--- NOTE | 2019-02-14 14:25 | Hospitalist Progress Note ---
Date of Service February 14, 2019 Assessment & Plan (1) Dementia with behavioral disturbance: At baseline has dementia with neurology visits. - Increased her risperidone to [address] PO TID per Dr[address] Lutz's office visit recommendation. - On 02/14, she is quite calm. Still likes to walk around frequently and doesn't like to be left alone. - Awaiting appropriate placement as she cannot go back to [facility] due to safety concerns. (2) Tachycardia: Vitals show occasional tachycardia. Given its sporadic nature, could be paroxysmal afib or just sinus tachycardia from her agitation. - EKG on 02/13 shows normal sinus rhythm. (3) TIA (transient ischemic attack): It is believed that the patient may have had a TIA leading to right-sided weakness at time of admission. The right-sided weakness appeared to have resolved. - PT, OT, speech evals appreciated. - ASA 81mg daily for secondary prevention. - Cont statin. - No further focal weakness today on exam. She is up and moving around without any weakness. (4) Hypertension: Not on meds for such at SNF. - BP today is 120/75. - Will continue metop XL 12.5mg daily. (5) Volume overload: Patient appeared volume overloaded clinically and radiographically in the first 24 hours of stay. Echo on 02/06 showed EF 55-60%. I would consider this mild exacerbation of HFpEF. - S/p lasix IV x 2 doses at the beginning of the hospitalization. - Exam today looks euvolemic - Unable to tell me any shortness of breath today due to mental status. - No further Lasix (6) Mejia's esophagus: Has not reported any symptoms during this admission to me or any other provider. - Continue PPI twice daily (7) Dyslipidemia: Controlled. - Continue statin. (8) Hearing loss: Noted. Severe. (9) GERD (gastroesophageal reflux disease): Continue PPI twice daily. (10) DVT prophylaxis: Ambulation - She is up and walking and moving constantly, so I do not think chemoprophylaxis is necessary. In fact, could be a risk if she falls. Subjective Somewhat better today, though she is a bit tearful this morning. Review of Systems Review of Systems: Unobtainable due to cognitive status Physical Exam Constitutional: + physical limitations and cooperative; not combative and not lethargic Eyes: EOM intact bilaterally; no conjunctival abnormality ENMT: external ear and nose normal, oropharynx normal Neck: trachea midline, no thyromegaly normal visual inspection Respiratory: normal respiratory effort, lungs clear to auscultation no respiratory distress Cardiovascular: RRR, no murmur, no edema Gastrointestinal (Abdomen): Inspection/Auscultation: abdomen normal to inspection; abdomen not distended Musculoskeletal: no cyanosis or clubbing, extremities motor strength 5/5 Skin: no rashes, warm and dry Neurologic: moves all extremities and awake Psychiatric: Orientation: alert and cooperative; + not oriented to person Results & Data Vital Signs (Past 12 Hours) Vital Signs Temp Pulse Pulse Resp BP Pulse Ox 02/14/19 07:38 37 C 95 H 20 125/73 96 02/14/19 05:09 37 C 89 18 119/79 90 PG Care Time/CCT Total # of Minutes Spent Total Time Spent with Patient: Total time spent is greater than 50% in coord ination of care (as documented) at patient's floor/unit and/or counseling patient: (1) Dementia with behavioral disturbance Dementia type: Alzheimer's disease Alzheimer's disease onset: unspecified onset Qualified Code(s): G30.9 - Alzheimer's disease, unspecified; F02.81 - Dementia in other diseases classified elsewhere with behavioral disturbance (2) Hypertension Hypertension type: essential hypertension Qualified Code(s): I10 - Essential (primary) hypertension (3) Volume overload Hypervolemia type: unspecified Qualified Code(s): E87.70 - Fluid overload, unspecified (4) Hearing loss Hearing loss type: unspecified Laterality: bilateral Qualified Code(s): H91.93 - Unspecified hearing loss, bilateral (5) GERD (gastroesophageal reflux disease) Esophagitis presence: esophagitis presence not specified Qualified Code(s): K21.9 - Gastro-esophageal reflux disease without esophagitis
[2019-02-14] MEDS: TRAZODONE HCL 100 MG TAB PO SCH (20:04)
[2019-02-15] MEDS: LEVOTHYROXINE SODIUM 100 MCG TABLET PO SCH (04:50)
[2019-02-15] MEDS: PANTOprazole 40 MG TAB PO SCH ×2 (09:47→19:45)
[2019-02-15] MEDS: SERTRALINE HCL 50 MG TABLET PO SCH (09:47)
[2019-02-15] MEDS: ATORVASTATIN 20 MG TAB PO SCH (09:47)
[2019-02-15] MEDS: MEMANTINE HCL 5 MG TAB PO SCH ×2 (09:47→19:46)
[2019-02-15] MEDS: RISPERIDONE ODT 1MG PO SCH ×3 (09:47→19:45)
[2019-02-15] MEDS: DONEPEZIL HCL 5 MG TAB PO SCH (09:47)
[2019-02-15] MEDS: ASPIRIN 81 MG ECTAB PO SCH (09:47)
[2019-02-15] MEDS: METOPROLOL SUCC 25MG EXT REL TAB PO SCH (09:48)
[2019-02-15] MEDS: FAMOTIDINE 20 MG TAB PO SCH (10:08)
[2019-02-15] MEDS: POLYETHYLENE (MIRALAX) 17 GM PACK PO SCH (10:08)
[2019-02-15] MEDS: LORazepam 0.5 MG TAB PO SCH ×3 (10:08→19:45)
[2019-02-15] MEDS ORDERED: FUROSEMIDE 20 MG in SYRINGE 0 ML IV ONE (12:15)
[2019-02-15] MEDS ORDERED: FUROSEMIDE 40 MG TAB PO ONE (12:17)
--- NOTE | 2019-02-15 13:51 | Hospitalist Progress Note ---
Date of Service February 15, 2019 Assessment & Plan (1) Dementia with behavioral disturbance: * At baseline has dementia with neurology visits. * Risperidone was increased to 1 mg PO TID per Dr. Lutz's office visit recommendation. * Has been calm since medication change. On Q15 minute checks. Calm during our visit today * -- Per discussion with CM, patient accepted to [facility] (patient originally from [facility] but unable to return due to safety concerns) -- auth pending -- patient's daughter Genesis shook transport set-up, aware of [id number] expense (2) Tachycardia: * Vitals show occasional tachycardia. Given its sporadic nature, could be paroxysmal afib or just sinus tachycardia from her agitation. * EKG on 02/13 shows normal sinus rhythm. * Patient not on any home BB or anti-HTN agents -- was initiated on Metoprolol XL 12.5 mg daily on 02/10 -- rates continue to be 90s-low 100s over the past 24 hours-- may need to increase to 25mg daily (3) TIA (transient ischemic attack): * It is believed that the patient may have had a TIA leading to right- sided weakness at time of admission. The right-sided weakness appeared to have resolved. * PT, OT, speech evals appreciated -- patient to go to [facility] at discharge * ASA 81mg daily for secondary prevention -- patient with listed allergy for gastritis, however has tolerated and without evidence of s/sx to suggest such currently. * Continue atorvastatin 20mg * No further focal weakness on exam (4) Hypertension: * Not on meds for such at SNF. * Metoprolol XL 12.5mg initiated on 02/10 * BP today is 151/67 this morning * Will continue metop XL 12.5mg daily -- may need to titrate up as above for tachycardia (5) Volume overload: * Patient appeared volume overloaded clinically and radiographically in the first 24 hours of stay. Echo on 02/06 showed EF 55-60% -- possible mild exacerbation of HFpEF. * S/p lasix IV x 2 doses at the beginning of the hospitalization. * Exam today with JVD at 30 degrees-- lasix 40mg PO x 1 due to patient not having IV site and agitation -- declines any shortness of breath, but difficult to asses d/t cognitive function * Continue to monitor (6) Mejia's esophagus: * Has not reported any symptoms during this admission * Continue famotidine twice daily (7) Dyslipidemia: * Controlled. * Continue atorvastatin 20mg (8) Hearing loss: * Noted * Severe (9) GERD (gastroesophageal reflux disease): * Continue PPI twice daily. (10) DVT prophylaxis: * Ambulation - She is up and walking and moving constantly, so I do not think chemoprophylaxis is necessary. In fact, could be a risk if she falls. Dispo: patient to possibly be discharged to [facility] AM Supervising Physician Co-Signing Physician Notes Attending Attestation: Chart reviewed in detail, care plan d/w TROY Mederos. I agree w/ the meredith components of her documentation. Awaiting SNF placement. Vitals/labs remain acceptable. Fermin Garza MD Subjective Patient evaluated at bedside. She offers no complaints. She states "call mom and pop" when asked if she wanted any family notified. She is very quiet and minimally responsive. Review of Systems Review of Systems: Unobtainable due to cognitive status Physical Exam Constitutional: + frail appearing; no acute distress Neck: trachea midline, no thyromegaly Respiratory: no respiratory distress and no labored breathing Auscultation: + diminished lung sounds; no rhonchi and no wheezes Cardiovascular: Rate/Rhythm: regular rate and regular rhythm Heart Sounds: normal S1 and normal S2; no murmur Vessels: + JVD Gastrointestinal (Abdomen): normal bowel sounds, soft, nontender, no hepatosplenomegaly Musculoskeletal: no cyanosis or clubbing, extremities motor strength 5/5 Skin: no rashes, warm and dry Psychiatric: Orientation: alert; + not oriented to person Affect: + flat affect Lymphatic: no cervical or axillary lymphadenopathy Results & Data Vital Signs (Past 12 Hours) Vital Signs Temp Pulse Pulse Resp BP Pulse Ox 02/15/19 07:27 36.7 C 96 H 16 132/80 90 02/15/19 04:51 36.7 C 96 H 18 151/67 H 91 PG Care Time/CCT Total # of Minutes Spent Total Time Spent with Patient: Total time spent is greater than 50% in coordination of care (as documented) at patient's floor/unit and/or counseling patient: (1) Dementia with behavioral disturbance Alzheimer's disease onset: unspecified onset Dementia type: Alzheimer's disease Qualified Code(s): G30.9 - Alzheimer's disease, unspecified; F02.81 - Dementia in other diseases classified elsewhere with behavioral disturbance (2) Hearing loss Hearing loss type: unspecified Laterality: bilateral Qualified Code(s): H91.93 - Unspecified hearing loss, bilateral (3) GERD (gastroesophageal reflux disease) Esophagitis presence: esophagitis presence not specified Qualified Code(s): K21.9 - Gastro-esophageal reflux disease without esophagitis (4) Hypertension Hypertension type: essential hypertension Qualified Code(s): I10 - Essential (primary) hypertension (5) Volume overload Hypervolemia type: unspecified Qualified Code(s): E87.70 - Fluid overload, unspecified
[2019-02-15] MEDS: TRAZODONE HCL 100 MG TAB PO SCH (19:46)
[2019-02-16] MEDS: LEVOTHYROXINE SODIUM 100 MCG TABLET PO SCH (04:36)
[2019-02-16 08:25] LABS: BUN Creatinine Ratio 25.4 (10-20); Calcium 9.4 mg/dl (8.5-10.1); Creatinine Clr Calc Pharmacy 45.6 ml/min; Est GFR (African American) 57.8; Est GFR (Non-African American) 49.9; Potassium 3.7 mmol/L (3.5-5.1)
[2019-02-16] MEDS ORDERED: METOPROLOL SUCC 25MG EXT REL TAB PO SCH (09:00)
[2019-02-16] MEDS: DONEPEZIL HCL 5 MG TAB PO SCH (10:49)
[2019-02-16] MEDS: LORazepam 0.5 MG TAB PO SCH ×2 (10:50→14:00)
[2019-02-16] MEDS: ATORVASTATIN 20 MG TAB PO SCH (10:50)
[2019-02-16] MEDS: SERTRALINE HCL 50 MG TABLET PO SCH (10:51)
[2019-02-16] MEDS: MEMANTINE HCL 5 MG TAB PO SCH (10:51)
[2019-02-16] MEDS: PANTOprazole 40 MG TAB PO SCH (10:52)
[2019-02-16] MEDS: RISPERIDONE ODT 1MG PO SCH ×2 (10:52→14:01)
[2019-02-16] MEDS: ASPIRIN 81 MG ECTAB PO SCH (10:53)
[2019-02-16] MEDS: TRAMADOL HCL 50 MG TABLET PO PRN (10:54)
[2019-02-16] MEDS: POLYETHYLENE (MIRALAX) 17 GM PACK PO SCH (11:11)
[2019-02-16] MEDS: FAMOTIDINE 20 MG TAB PO SCH (11:53)
--- NOTE | 2019-02-16 12:24 | Discharge Summary ---
Date of Service February 16, 2019 Admission HPI Per Admitting Provider The patient is a 78 year old female who presents to the Emergency Room with complaints of an episode of right-sided weakness that began at approximately 1130 this morning, 1.5 hours prior to arrival, per EMS. EMS states that they were called as the patient was not acting at her baseline, and was reported to be staggering and moving slower than baseline. Per EMS, the patient then had a near syncopal episode and almost fell. EMS states that they noticed the patient's right-sided weakness at this time. Her symptoms have currently resolved. CT and CT angiogram of head and neck done in the emergency room is within normal limits. She will be admitted under observation to rule out TIA. CODE STATUS was discussed and she is DNR/DNI. Her family is present at the bedside. Patient herself is a poor historian secondary to dementia. Admission Exam Per Admitting Provider GENERAL : No acute distress Hard of hearing. Appears slightly demented. EYES: No icterus, gaze conjugate NOSE: No evidence of epistaxis MOUTH: No lesions or candidiasis, mucosa moist NECK: Supple LUNGS: CTA B/L, no wheezes, rales or rhonchi HEART: Regular, rate controlled ABDOMEN: Soft, NT, ND, BS Present EXTREMITIES: No LE edema, pedal pulses intact NEURO: Cranial nerves intact. Moving all the 4 limbs. Principal Diagnosis TIA with Right Sided Weakness Discharge Exam Constitutional + frail appearing; no acute distress Eyes + anicteric sclerae and PERRL ENMT Ears: + hearing impairment Neck trachea midline, no thyromegaly Respiratory no respiratory distress and no labored breathing Auscultation: + diminished lung sounds; no rhonchi and no wheezes Cardiovascular Rate/Rhythm: regular rate and regular rhythm Heart Sounds: normal S1 and normal S2; no murmur Gastrointestinal (Abdomen) normal bowel sounds, soft, nontender, no hepatosplenomegaly Musculoskeletal no cyanosis or clubbing, extremities motor strength 5/5 Skin no rashes, warm and dry Psychiatric Orientation: alert; + not oriented to person, + not oriented to place and + not oriented to time Lymphatic no cervical or axillary lymphadenopathy Discharge Data Allergies Allergy/AdvReac Type Severity Reaction Status Date / Time aspirin AdvReac Unknown contraindicated Verified 02/05/19 14:23 d/t gastritis Consultations 02/05/19 14:13 ED Decision to Admit Stat 02/05/19 16:06 Consult Case Management - Discharge Planning Routine Consult Neurology Routine Ordered Studies 02/05/19 12:44 CT angio head w con Stat CT angio neck with con Stat CT head/brain wo con Stat 02/05 Hip/Pelvis X-Ray 02/06 CXR 02/06 ECHO 02/15 CXR Hospital Course (1) Dementia with behavioral disturbance: * At baseline has severe dementia. * Risperidone was increased to 1 mg PO TID per Dr. Lutz's office visit recommendation with patient more calm since medication change. * -- Per discussion with CM, patient accepted to [facility] as patient unsafe to return to [facility] (2) Tachycardia: * Vitals showed occasional tachycardic. EKG was performed which showed NSR on 02/13 * Patient not on any home BB or anti-HTN agents -- was initiated on Metoprolol XL 12.5 mg daily on 02/10 -- rates continued to be 90s-low 100s and patient was increased to 25mg daily with rates 70-80s prior to discharge. (3) TIA (transient ischemic attack): * It is believed that the patient may have had a TIA leading to right- sided weakness at time of admission. The right-sided weakness appeared to have resolved. * ASA 81mg daily for secondary prevention -- patient with listed allergy for gastritis, however tolerated and without evidence of s/sx to suggest such. * Continued atorvastatin 20mg * No further focal weakness on exam prior to discharge (4) Hypertension: * Not on meds for such at SNF. * Metoprolol XL 12.5mg initiated on 02/10 -- increased to 25mg prior to discharge as above, with BP 126/57. (5) Volume overload: * Patient appeared volume overloaded clinically and radiographically in the first 24 hours of stay. Echo on 02/06 showed EF 55-60% -- possible mild exacerbation of HFpEF. Was given lasix IV x 2 doses. * On 02/15, patient given additional 40mg PO, with improved oxygen saturations. * CXR done on day of discharge, which showed much improvement compared to CXR on admission. * Patient to take lasix 20mg and potassium 10meq for the next three days at discharge and should have repeat labs in the next 2-3 days (6) Mejia's esophagus: * Had not reported any symptoms during this admission. Continued famotidine (7) Dyslipidemia: * Controlled. Continued atorvastatin 20mg (8) GERD (gastroesophageal reflux disease): * Continued PPI twice daily. (9) DVT prophylaxis: * Ambulation during hospitalization --> patient constantly walking the halls with walker Total Time Total Time Spent Total Time Spent (In Minutes): 45 Discharge Plan Discharge Items Patient Disposition: Transfer [facility] Living Fac Reason For Visit: RIGHT-SIDED WEAKNESS Discharge Diagnosis: Right Sided Weakness Goals: You have been hospitalized for an acute medical problem. During your stay at [facility], we have made an effort to correct the problem that brought you to the hospital while keeping you as comfortable as possible. Medications were used to bring your condition under control and your discharge instructions will include directions for any medications you should take after leaving the hospital. Please make sure you see your Primary Care Provider as part of your follow up plan. Activity: Resume your previous activity Non-emergency contact: Primary Care Provider Call non-emergency contact if: you have any medication questions, your symptoms worsen and you have a fever Follow-up/Referrals: Enrique Collexpo, [facility] [Primary Care Provider] - Diet: Heart Healthy Addtl Attending Provider Instructions: Risk Factors for Stroke: You can reduce your chances of stroke by working with your medical provider to adopt a healthy lifestyle. Some specific ways to lower your chance of stroke are: * If you are a smoker, now is the time to stop smoking cigarettes * If you are diabetic, improve the control of your blood sugars * Avoid excessive amounts of alcohol * Control high blood pressure * Lose weight if you are overweight * Be sure to lead an active lifestyle * Eat a healthy diet low in salt, cholesterol and fat You should know about other risk factors for stroke that you are unable to control. These include: * Age 55 years or older * Male gender * Certain racial groups: , or / * Family History of Stroke, Mini stroke or Heart Attack * Sickle Cell Disease Follow Up: It is important for you to keep your follow up appointments with your medical provider. Who to Call and When: Medical Emergencies: Call 911 immediately if you experience any of the following warning signs and symptoms of Stroke: * Sudden numbness or weakness of the face, arm or leg, especially on one side of the body * Sudden confusion, trouble speaking or understanding * Sudden trouble seeing in one or both eyes * Sudden trouble walking, dizziness, loss of balance or coordination * Sudden severe headache with no cause Do not delay calling 911 if you experience any warning signs or symptoms of a stroke. Delay in seeking medical attention may affect what treatments can be given to you. . You have been hospitalized for right sided weakness. It is believed that you had what is called "TIA" or transient ischemic attack, which means that there was a period of time where you had a lack of oxygen to an area of the brain. You have been treated with medical management. Your risperidone was increased to 1mg by mouth, three times a day. This was previously discussed at a visit with Dr. Lutz, and is felt that you would benefit from an increased dose. You have been started on metoprolol 25mg daily for high blood pressure. You had initially received 12.5mg and were titrated up. You may need to be increased in the future. You are also being sent out on lasix (furosemide) 20mg for the next three days. You are also being sent out on potassium - 10meq daily for those same three days. Please follow up with your medical provider in the next 2-3 days. Please take all medications as prescribed. Please report to the emergency room with any increasing shortness of breath, weakness, or for any symptoms that are concerning for you. Pending Studies at Discharge: No Stand-Alone Forms: My [facility] Skilled Items Patient informed of condition?: Yes DNR: Yes Discharge Level of Care: Skilled Communicable Disease: No Discharge Prognosis: Stable Lines: None Urinary Catheter: No Medications and DC Order Prescriptions: New metoprolol succinate 25 mg Tablet Extended Release 24 Hr 25 mg PO QAM 30 Days Qty: 30 RF: 0 aspirin [Ecotrin Low Strength] 81 mg Tablet,Delayed Release (Dr/Ec) 81 mg PO QAM 30 Days Qty: 30 RF: 0 risperidone 1 mg Tablet,Disintegrating 1 mg PO TID 30 Days Qty: 90 RF: 0 Pharmacist Discharge Consult [Pharmacist Discharge Med Rec Consult] 1 ea N/A UD PRN (Reason: TIA) Qty: 1 RF: 1 Continued melatonin 10 mg capsule 10 mg PO HS RF: 0 atorvastatin [Lipitor] 20 mg tablet 20 mg PO DAILY RF: 0 levothyroxine [Synthroid] 100 mcg tablet 100 mcg PO DAILY RF: 0 omeprazole 20 mg capsule,delayed release(DR/EC) 20 mg PO BID RF: 0 sertraline [Zoloft] 100 mg tablet 150 mg PO DAILY RF: 0 donepezil 5 mg tablet 5 mg PO DAILY RF: 0 nystatin 100,000 unit/gram Cream 1 applic TOPICAL BID PRN (Reason: YEAST) RF: 0 nystatin 100,000 unit/gram Powder 1 applic TOPICAL BID PRN (Reason: IRRITATION) RF: 0 cholecalciferol (vitamin D3) [Vitamin D3] 1,000 unit Capsule 1,000 unit PO DAILY RF: 0 Therems-M 27-0.4 mg Tablet 1 tab PO DAILY RF: 0 memantine 5 mg tablet 5 mg PO BID RF: 0 Preparation H 0.25-14-74.9 % Ointment 1 applic ID BID PRN (Reason: Hemorrhoids) RF: 0 polyethylene glycol 3350 17 gram Powder In Packet 17 g PO DAILY RF: 0 famotidine 20 mg tablet 20 mg PO DAILY RF: 0 trazodone 100 mg tablet 100 mg PO HS RF: 0 lorazepam 0.5 mg tablet 0.5 mg PO TID Qty: 10 RF: 0 Changed tramadol 50 mg tablet 50 mg PO Q4H PRN (Reason: Pain) Qty: 10 RF: 0 Discontinued risperidone 0.5 mg tablet,disintegrating 0.5 mg PO TID RF: 0 Discharge Orders: Discharge Order (Routine); Ordered 02/16/19 Ordered By: Rahel Mederos Admission Data Admit Date/Time: 02/06/19 14:39 Attending Provider: Fermin Garza Admit Provider: David Fried Primary Care Provider: [facility], [facility] Other Providers: [facility], ; David Fried ; Juan Aguilar III ; [facility] Other Interventions: Discharge Summary Assessment (RN) Last Done: 02/16/19 14:03 DC Date/Time DO NOT enter until pt leaves facility: 02/16/19 15:29 Supervising Physician Co-Signing Physician Notes Attending Attestation and Discharge Note: Pt seen/examined, chart reviewed in detail, discharge care plan d/w TROY Mederos. I agree w/ the meredith components of her discharge documentation. 78yo female w/ advanced dementia who presented with possible TIA. Seen by neurology early in stay. Underwent customary TIA work-up. MRI brain was deferred due to excess agitation and concern she would not tolerate such. Aspirin for secondary prevention of TIA/stroke advised by neurology. Course complicated by probable volume overload and behavioral disturbance in setting of dementia. Received IV lasix and will complete a few more days of PO lasix post-discharge. Risperdal was adjusted for agitation/behavioral issues. Discharge exam: gen - NAD, confused (baseline); after my exam she promptly got up from the bed, took her walker, and started walking in hallway mouth - MMM heart - RRR; s1 s2; no JVD lungs - CTA b/l abd - soft ext - trace edema b/l psych - a/o x 1 only Fermin Garza MD
--- NOTE | 2019-02-16 12:38 | XRay Report ---
XR chest 1V portable CLINICAL HISTORY: Volume overload COMPARISON STUDY: 02/06/2019 FINDINGS: The heart is enlarged. There are calcified hilar and mediastinal lymph nodes. There are low lung volumes. There is mild interstitial thickening. This could be secondary to a hypoventilatory st udy. There is no lobar consolidation. There are no significant pleural effusions.[ IMPRESSION: Cardiomegaly. Low lung volumes with mild interstitial thickening. No evidence of lobar co nsolidation. No overt failure. Electronically signed by: Jairon Phillips M.D. 02/16/2019 12:37 PM
[2019-02-16] MEDS ORDERED: STROKE PATIENT DISCHARGE STA (12:46)
[2019-02-16] MEDS ORDERED: FUROSEMIDE 20 MG TAB PO SCH (13:00)
== END 2019-02-16 15:29 | DRG 69 ==
LOC: 2S 12:39 → ED 12:39 → SUATTDRO 15:06 → 2S 15:39 → SUATTDRO 02-06 14:39 → 3N 02-08 17:53

== ENCOUNTER 2019-03-05 21:45 | Inpatient (IN) ==
[2019-03-05 22:47] LABS: Basophils # (auto) 0.01 K/uL (0-0.2); Basophils % (auto) 0.2 %; Eosinophils # (auto) 0.07 K/uL (0-0.5); Eosinophils % (auto) 1.2 %; Hematocrit (blood only) 36.2 % (37-47); Hemoglobin 11.8 g/dL (12.0-16.0); Immature Granulocytes # (auto) 0.02 K/uL (0.00-0.02); Immature Granulocytes % (auto) 0.3 %; Lymphocytes # (auto) 0.85 K/uL (1.2-3.4); Lymphocytes % (auto) 14.2 %; Mean Corpuscular Hemoglobin 31.3 pg (25-34); Mean Corpuscular Hgb Conc 32.6 g/dL (32-36); Monocytes # (auto) 0.54 K/uL (0.11-0.59); Neutrophils # (auto) 4.48 K/uL (1.4-6.5); Neutrophils % (auto) 75.1 %; Platelet Count 221 K/uL (130-400); RDW Coefficient of Variation 13.4 % (11.5-14.5); RDW Standard Deviation 47.1 fL (36.4-46.3); Red Blood Count 3.77 M/uL (4.2-5.4); White Blood Count 5.97 K/uL (4.8-10.8)
--- NOTE | 2019-03-05 22:49 | XRay Report ---
XR chest 1V portable HISTORY: 79 years-old Female weakness acute weakness COMPARISON: Chest radiograph 02/16/2019 TECHNIQUE: Portable AP view of the chest FINDINGS: Left shoulder arthroplasty. Degenerative changes of the right shoulder and spine. Moderate right chet diaphragmatic elevation. Cardiomegaly with pulmonary vascular congestion. Calcified left hilar lymph nodes. Ill-defined right perihilar opacities have progressed from prior. No pneumothorax or large ple ural effusion. No overt pulmonary edema. Degenerative changes of the shoulders and spine. IMPRESSION: 1. Cardiomegaly without overt pulmonary edema. 2. Right perihilar opacities may reflect normal hilar structures accentuated by patient rotation vers us underlying airspace disease. 3. Right hemidiaphragmatic elevation redemonstrated. ACT 112: Negative or not required by law. The above report was generated using voice recognition software. It may contain grammatical, syntax o r spelling errors. Electronically signed by: Joss Wells M.D. 03/05/2019 10:47 PM
[2019-03-05 22:56] LABS: INR 1.1 (0.9-1.1); Prothrombin Time 10.9 Seconds (9.0-12.0)
--- NOTE | 2019-03-05 23:00 | CT Scan Report ---
CT head/brain wo con CLINICAL HISTORY: 79 years-old Female with fall. Acute head injury status post fall TECHNIQUE: Multiple axial CT images of the head were obtained without contrast. A dose lowering tech nique was utilized adhering to the principles of ALARA. CT DOSE: 1578.68 mGy.cm COMPARISON: Head CT 02/28/2019 FINDINGS: No acute intracranial hemorrhage, midline shift, intracranial mass, hydrocephalus, territorial ischem ia or abnormal extra-axial collection. Age-related involutional changes with ex vacuo ventriculomegal y. Patchy white matter hypodensities suggest chronic microvascular ischemic disease. Cerebral vascula r calcifications also noted. Acute mildly displaced right nasal bone fracture. Adjacent soft tissue s welling. Prior right-sided cataract repair. The calvarium is intact. The paranasal sinuses, mastoid air cells, and middle ear cavities are clear. IMPRESSION: 1. No acute intracranial abnormality or calvarial fracture. 2. Acute mildly displaced right nasal bone fracture with adjacent soft tissue swelling. ACT 112: Negative or not required by law. The above report was generated using voice recognition software. It may contain grammatical, syntax o r spelling errors. Electronically signed by: Joss Wells M.D. 03/05/2019 10:59 PM
[2019-03-05 23:05] LABS: Alanine Aminotransferase 25 U/L (12-78); Aspartate Aminotransferase 23 U/L (15-37); BUN Creatinine Ratio 22.3 (10-20); Blood Urea Nitrogen 23 mg/dl (7-18); Calcium 8.8 mg/dl (8.5-10.1); Carbon Dioxide 30 mmol/L (21-32); Chloride 108 mmol/L (98-107); Est GFR (African American) 58.1; Est GFR (Non-African American) 50.1; Glucose 99 mg/dl (70-99); Potassium 4.1 mmol/L (3.5-5.1); Sodium 142 mmol/L (136-145)
--- NOTE | 2019-03-05 23:06 | CT Scan Report ---
CT cervical spine wo con CLINICAL HISTORY: 79 years-old Female with fall. Acute head and neck injury status post fall COMPARISON: CT head of same day, CT cervical spine 02/28/2019 TECHNIQUE: Multiple axial CT images of the cervical spine were obtained without contrast. A dose low ering technique was utilized adhering to the principles of ALARA. FINDINGS: Degenerative related anterolisthesis C3 on C4, C4 on C5 and C7 on T1 is unchanged. Severe multilevel facet arthrosis. Advanced disc space narrowing at C5-C6, C6-C7 and T1-T2 redemonstrated with multilev el posterior disc osteophyte complex formations. Evaluation of the central canal and neuroforaminal s tructures are better evaluated by MRI. Severe multilevel foraminal narrowing is noted. Lung apices ar e clear. There is no pneumothorax. Nonspecific proximal esophageal wall thickening. No prevertebral s oft tissue swelling. IMPRESSION: 1. No acute cervical spine fracture or subluxation. 2. Nonspecific proximal esophageal wall thickening. ACT 112: Negative or not required by law. The above report was generated using voice recognition software. It may contain grammatical, syntax o r spelling errors. Electronically signed by: Joss Wells M.D. 03/05/2019 11:05 PM
[2019-03-05 23:15] LABS: Albumin Globulin Ratio 0.9 (0.9-2); Alkaline Phosphatase 115 U/L (45-117); Bilirubin,Total 0.3 mg/dl (0.2-1); Globulin 3.3 gm/dl (2.5-4.0); Total Protein 6.3 gm/dl (6.4-8.2); Troponin I < 0.015 ng/ml (0-0.045)
--- NOTE | 2019-03-05 23:40 | Emergency Department Note ---
Entered by Erica Ponce acting as a scribe for Kervin Simon DO History of Present Illness General Chief complaint: Fall Stated complaint: FALLS, AMS, FACIAL INJURIES Source: patient and family (daughter) History of Present Illness Onset (ago): hour(s) (earlier today) Location: head (general) Pain Consistency: + other (multiple episodes) Quality: + other (falls) Associated symptoms: + other (right leg cramp) The patient is a 79 year old female who presents to the Emergency Room with complaints of multiple episodes of falls occurring earlier today. The patient's daughter reports she fell approximately 3 times today at [facility]. She reports the patient was in [facility] and was discharged to [facility] about two weeks ago. She notes the patient has a history of dementia. Per Kristi from [facility] she notes that the patient has fallen 3 times in the past 24 hours. Patient was at 1 point unresponsive no since these falls has been much more lethargic and not appropriate. History is limited secondary to mentation and dementia. Home Medications Home Medications Medication Instructions Recorded Confirmed Type atorvastatin [Lipitor] 20 mg PO DAILY 02/09/18 03/05/19 History levothyroxine [Synthroid] 100 mcg PO DAILY 02/09/18 03/05/19 History omeprazole 20 mg PO BID 02/09/18 03/05/19 History melatonin 10 mg capsule 10 mg PO HS cap 12/28/18 03/05/19 History sertraline 100 mg tablet 150 mg PO DAILY tab 12/30/18 03/05/19 History Preparation H 1 applic CO BID PRN 01/15/19 03/05/19 History Therems-M 1 tab PO DAILY 01/15/19 03/05/19 History cholecalciferol (vitamin D3) 1,000 unit PO DAILY 01/15/19 03/05/19 History [Vitamin D3] donepezil 5 mg PO DAILY 01/15/19 03/05/19 History memantine 5 mg PO BID 01/15/19 03/05/19 History nystatin 1 applic TOPICAL BID PRN 01/15/19 03/05/19 History polyethylene glycol 3350 17 g PO DAILY 01/16/19 03/05/19 History famotidine 20 mg PO DAILY 02/05/19 03/05/19 History trazodone 100 mg PO HS 02/05/19 03/05/19 History aspirin [Ecotrin Low Strength] 81 mg PO QAM 30 Days #30 tab 02/16/19 03/05/19 Rx lorazepam 0.5 mg PO TID #10 tab 02/16/19 03/05/19 Rx risperidone 1 mg PO TID 30 Days #90 tab 02/16/19 03/05/19 Rx tramadol 50 mg PO Q4H PRN #10 tab 02/16/19 03/05/19 Rx acetaminophen [Acetaminophen Extra 1,000 mg PO TID PRN 03/05/19 03/05/19 History Strength] acetaminophen [Tylenol] 650 mg PO Q6H PRN 03/05/19 03/05/19 History metoprolol tartrate 12.5 mg PO Q12H 03/05/19 03/05/19 History Allergies Allergy/AdvReac Type Severity Reaction Status Date / Time aspirin AdvReac Unknown contraindicated Verified 02/05/19 14:23 d/t gastritis Past Med/Surg History Medical History Alzheimer disease Anxiety Depression Dyslipidemia GERD (gastroesophageal reflux disease) GERD (gastroesophageal reflux disease) Hearing deficit Hearing loss Hyperlipidemia Hypothyroidism Osteoarthritis Osteoarthritis Surgical History History of bilateral tubal ligation History of discectomy History of esophagogastroduodenoscopy (EGD) History of tonsillectomy History of tooth extraction History of total abdominal hysterectomy and bilateral salpingo-oophorectomy History of total left hip replacement History of total right hip replacement Family History Brother Family history of diabetes mellitus Social History Preferred Language: [place] Communication Ability: confused Electrolog Operator Required: No Beliefs That Will Affect Care: None Current Living Situation: Personal Care Facility Current Living Situation Comment: [facility] current occupational status: 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 Unobtainable due to cognitive status Physical Exam Vital Signs Vital Signs - 24 hr 03/05/19 22:04 Temperature 36.6 C Temperature Source Oral Pulse Rate 63 Pulse Rhythm Regular Pulse Strength Normal Respiratory Rate 18 Respiratory Effort / Characteristics Non-Labored Spontaneous Respiratory Depth Normal Respiratory Pattern Regular Blood Pressure 120/76 Blood Pressure Mean 90 Blood Pressure Position Lying Pulse Oximetry 92 Oxygen Delivery Method Room Air Sepsis Recent Fever Within 48 Hours No Sepsis Action Taken by Nursing No Action Required GENERAL: laying in bed, difficult to arouse, no acute distress HEAD: normal cephalic, atraumatic FACE: 2 cm laceration on the bridge of nose, bruising around left orbit with well-healed laceration above left orbit EYE EXAM: normal conjunctiva, PERRL and EOM's grossly intact OROPHARYNX: no exudate, no erythema, lips, buccal mucosa, and tongue normal and mucous membranes are moist NECK: supple, no nuchal rigidity, no adenopathy, non-tender CHEST: stable to compression anteriorly and posteriorly LUNGS: Diminished bilateral. Normal chest wall mechanics HEART: no murmurs, S1 normal and S2 normal ABDOMEN: abdomen soft, non-tender, normo-active bowel sounds, no masses, no rebound or guarding. PELVIS: stable to compression anteriorly and posteriorly BACK: Back is symmetrical on inspection and there is no deformity, no midline tenderness, no CVA tenderness. UPPER EXTREMITIES: full active and passive range of motion of all joints without tenderness to palpation, bruise over right shoulder, 4 cm skin tear on the left hand dorsal surface with 3 steri-strips in place LOWER EXTREMITIES: full active and passive range of motion of all joints without tenderness to palpation NEURO EXAM: Oriented to person and family member at bedside, moves all extremities, non-focal. Procedures Laceration Laceration 1: Site: face Size (cm): 2 Description: linear Depth: simple, single layer Pre-repair: wound explored Skin layer closed with: other (Dermabond) Technique: other Course Course ED COURSE: Vital signs were reviewed and showed normal. The patients medical record was reviewed The above diagnostic studies were performed and reviewed. ED treatments and interventions as stated above. 2205: The patient was evaluated in room B10. A complete history and physical examination was performed. 0010: Upon reevaluation, the patient is resting more comfortably. I discussed my findings with the patient and she understands and agrees with the treatment plan. Based on the patients age, coexisting illnesses, exam and lab findings the decision to treat as an inpatient was made. I spoke with Dr. Hollins - [facility] Hospitalist who agrees to further evaluate the patient. The patient remained stable while under my care. The patient will be evaluated for further management. Medical Decision Making Differential Diagnosis Differential diagnoses include major intracranial, cervical, spinal, thoracic, abdominal, pelvic and neurologic injury. Fracture, contusion, sprain, strain, laceration, abrasions included as well. Medical Records Attestation: I reviewed the patient's medical records. Home Medications Current Medication List: was personally reviewed by me Laboratory Data Attestation: I reviewed the patient's lab results. Result diagrams: 03/05/19 22:33 03/05/19 22:33 Lab Results 03/05/19 03/05/19 03/05/19 Range/Units 22:33 22:33 22:33 WBC 5.97 (4.8-10.8) K/uL RBC 3.77 L (4.2-5.4) M/uL Hgb 11.8 L (12.0-16.0) g/dL Hct 36.2 L (37-47) % MCV 96.0 (80-100) fL MCH 31.3 (25-34) pg MCHC 32.6 (32-36) g/dL RDW Std Deviation 47.1 H (36.4-46.3) fL RDW Coeff of [place] 13.4 (11.5-14.5) % Plt Count 221 (130-400) K/uL MPV 9.0 (7.4-10.4) fL Immature Gran % (Auto) 0.3 % Neut % (Auto) 75.1 % Lymph % (Auto) 14.2 % [place] % (Auto) 9.0 % Eos % (Auto) 1.2 % Baso % (Auto) 0.2 % Immature Gran # (Auto) 0.02 (0.00-0.02) K/uL Neut # (Auto) 4.48 (1.4-6.5) K/uL Lymph # (Auto) 0.85 L (1.2-3.4) K/uL [place] # (Auto) 0.54 (0.11-0.59) K/uL Eos # (Auto) 0.07 (0-0.5) K/uL Baso # (Auto) 0.01 (0-0.2) K/uL PT 10.9 (9.0-12.0) Seconds INR 1.1 (0.9-1.1) Sodium 142 (136-145) mmol/L Potassium 4.1 (3.5-5.1) mmol/L Chloride 108 H (98-107) mmol/L Carbon Dioxide 30 (21-32) mmol/L Anion Gap 4.0 (3-11) BUN 23 H (7-18) mg/dl Creatinine 1.05 (0.6-1.2) mg/dl Est Cr Clr Drug Dosing 45.0 ml/min Est GFR ( Amer) 58.1 Est GFR (Non-Af Amer) 50.1 BUN/Creatinine Ratio 22.3 H (10-20) Glucose 99 (70-99) mg/dl Calcium 8.8 (8.5-10.1) mg/dl Total Bilirubin 0.3 (0.2-1) mg/dl AST 23 (15-37) U/L ALT 25 (12-78) U/L Alkaline Phosphatase 115 (45-117) U/L Troponin I < 0.015 (0-0.045) ng/ml Total Protein 6.3 L (6.4-8.2) gm/dl Albumin 3.0 L (3.4-5.0) gm/dl Globulin 3.3 (2.5-4.0) gm/dl Albumin/Globulin Ratio 0.9 (0.9-2) TSH 2.470 (0.300-4.500) uIu/ml Imaging Data Radiologist's Impression: Radiology results as stated below per my review and the radiologist's interpretation: CT cervical spine wo con CLINICAL HISTORY: 79 years-old Female with fall. Acute head and neck injury status post fall COMPARISON: CT head of same day, CT cervical spine 02/28/2019 TECHNIQUE: Multiple axial CT images of the cervical spine were obtained without contrast. A dose lowering technique was utilized adhering to the principles of ALARA. FINDINGS: Degenerative related anterolisthesis C3 on C4, C4 on C5 and C7 on T1 is unchanged. Severe multilevel facet arthrosis. Advanced disc space narrowing at C5-C6, C6-C7 and T1-T2 redemonstrated with multilevel posterior disc osteophyte complex formations. Evaluation of the central canal and neuroforaminal structures are better evaluated by MRI. Severe multilevel foraminal narrowing is noted. Lung apices are clear. There is no pneumothorax. Nonspecific proximal esophageal wall thickening. No prevertebral soft tissue swelling. IMPRESSION: 1. No acute cervical spine fracture or subluxation. 2. Nonspecific proximal esophageal wall thickening. ACT 112: Negative or not required by law. The above report was generated using voice recognition software. It may contain grammatical, syntax or spelling errors. Electronically signed by: Joss Wells M.D. 03/05/2019 11:05 PM XR chest 1V portable HISTORY: 79 years-old Female weakness acute weakness COMPARISON: Chest radiograph 02/16/2019 TECHNIQUE: Portable AP view of the chest FINDINGS: Left shoulder arthroplasty. Degenerative changes of the right shoulder and spin e. Moderate right hemidiaphragmatic elevation. Cardiomegaly with pulmonary vascular congestion. Calcified left hilar lymph nodes. Ill-defined right perihilar opacities have progressed from prior. No pneumothorax or large pleural effusion. No overt pulmonary edema. Degenerative changes of the shoulders and spine. IMPRESSION: 1. Cardiomegaly without overt pulmonary edema. 2. Right perihilar opacities may reflect normal hilar structures accentuated by patient rotation versus underlying airspace disease. 3. Right hemidiaphragmatic elevation redemonstrated. ACT 112: Negative or not required by law. The above report was generated using voice recognition software. It may contain grammatical, syntax or spelling errors. Electronically signed by: Joss Wells M.D. 03/05/2019 10:[address] head/brain wo con CLINICAL HISTORY: 79 years-old Female with fall. Acute head injury status post fall TECHNIQUE: Multiple axial CT images of the head were obtained without contrast. A dose lowering technique was utilized adhering to the principles of ALARA. CT DOSE: 1578.68 mGy.cm COMPARISON: Head CT 02/28/2019 FINDINGS: No acute intracranial hemorrhage, midline shift, intracranial mass, hydrocephalus, territorial ischemia or abnormal extra-axial collection. Age- related involutional changes with ex vacuo ventriculomegaly. Patchy white matter hypodensities suggest chronic microvascular ischemic disease. Cerebral vascular calcifications also noted. Acute mildly displaced right nasal bone fracture. Adjacent soft tissue swelling. Prior right-sided cataract repair. The calvarium is intact. The paranasal sinuses, mastoid air cells, and middle ear cavities are clear. IMPRESSION: 1. No acute intracranial abnormality or calvarial fracture. 2. Acute mildly displaced right nasal bone fracture with adjacent soft tissue swelling. ACT 112: Negative or not required by law. The above report was generated using voice recognition software. It may contain grammatical, syntax or spelling errors. Electronically signed by: Joss Wells M.D. 03/05/2019 10:59 PM [employer]: CT FACIAL: Mildly displaced bilateral nasal bone fractures worse on the right. The nasal septum is intact. No other facial fracture is identified. The sinuses and mastoids are unremarkable. Soft tissue swelling over the bridge of the nose. Radiologist: Juan Hollins MD Study ready at 23:41 and initial results were transmitted at 23:46. ECG Data Attestation: I personally reviewed and interpreted this ECG as follows: Indication: + other (fall) Rate (beats per minute): 57 Rhythm: + sinus bradycardia ECG Intervals/blocks: + Normal QT-c ECG [place]: + Left axis deviation ECG Findings: + Other (poor baseline in v6); no PVCs Blood Pressure Blood Pressure Findings: Normal blood pressure MDM Narrative Patient is an 79-year-old female with dementia lives at [facility] that presents the ER for 3 falls in the past 24 hours associated with period of unresponsiveness and since then has been more confused. At baseline patient is oriented to person and family members. Family notes that she still little bit more confused than usual although she is oriented to herself at this time. IV was established blood work was obtained and showed no significant leukocytosis. Mild anemia 11.8 thousand. INR was unremarkable. BMP with a slightly elevated chloride. LFTs bilirubin troponin TSH was unremarkable. CT of the head, face and cervical spine shows nasal bone fracture. Chest x-ray question infiltrate versus position. Did cover with Levaquin as she has had a cough. Pulse ox 88 to 92% when sleeping. I repaired the nasal laceration which was 2 cm with Dermabond myself. Family notes her shots are up-to-date. With these recurrent falls and increased confusion did discuss with the hospitalist for observation after discussing with family. Impression & Plan Recurrent falls, Laceration, Weakness, Closed fracture nasal bone, High serum chloride Discharge Plan Visit Data Chief Complaint: Fall Stated Complaint: FALLS, AMS, FACIAL INJURIES ED Provider: Kervin Simon Discharge Problem: Recurrent falls, Laceration, Weakness, Closed fracture nasal bone, High serum chloride Patient Disposition: Being Evaluated by Hospitalist Forms Stand Alone Forms: My [facility] Prescriptions Prescriptions: No Action melatonin 10 mg capsule 10 mg PO HS RF: 0 atorvastatin [Lipitor] 20 mg tablet 20 mg PO DAILY RF: 0 levothyroxine [Synthroid] 100 mcg tablet 100 mcg PO DAILY RF: 0 omeprazole 20 mg capsule,delayed release(DR/EC) 20 mg PO BID RF: 0 sertraline [Zoloft] 100 mg tablet 150 mg PO DAILY RF: 0 donepezil 5 mg tablet 5 mg PO DAILY RF: 0 nystatin 100,000 unit/gram Cream 1 applic TOPICAL BID PRN (Reason: YEAST) RF: 0 cholecalciferol (vitamin D3) [Vitamin D3] 1,000 unit Capsule 1,000 unit PO DAILY RF: 0 Therems-M 27-0.4 mg Tablet 1 tab PO DAILY RF: 0 memantine 5 mg tablet 5 mg PO BID RF: 0 Preparation H 0.25-14-74.9 % Ointment 1 applic CO BID PRN (Reason: Hemorrhoids) RF: 0 polyethylene glycol 3350 17 gram Powder In Packet 17 g PO DAILY RF: 0 famotidine 20 mg tablet 20 mg PO DAILY RF: 0 trazodone 100 mg tablet 100 mg PO HS RF: 0 aspirin [Ecotrin Low Strength] 81 mg Tablet,Delayed Release (Dr/Ec) 81 mg PO QAM 30 Days Qty: 30 RF: 0 risperidone 1 mg Tablet,Disintegrating 1 mg PO TID 30 Days Qty: 90 RF: 0 tramadol 50 mg tablet 50 mg PO Q4H PRN (Reason: Pain) Qty: 10 RF: 0 lorazepam 0.5 mg tablet 0.5 mg PO TID Qty: 10 RF: 0 acetaminophen [Acetaminophen Extra Strength] 500 mg Tablet 1,000 mg PO TID PRN (Reason: Pain) RF: 0 metoprolol tartrate 25 mg Tablet 12.5 mg PO Q12H RF: 0 acetaminophen [Tylenol] 325 mg Tablet 650 mg PO Q6H PRN (Reason: pain/fever) RF: 0 Referrals Referrals: [facility] [Primary Care Provider] - Discharge Problem: Closed fracture nasal bone Qualifiers: Encounter type: initial encounter Qualified Code(s): S02.2XXA - Fracture of nasal bones, initial encounter for closed fracture The scribe's documentation has been prepared under my direction and personally reviewed by me in its entirety. I confirm that the note above accurately reflects all work, treatment, procedures, and medical decision making performed by me.
[2019-03-06] MEDS ORDERED: LEVOFLOXACIN/D5W 750 MG/150 ML BAG IV SCH (00:15)
--- NOTE | 2019-03-06 01:44 | History & Physical Report ---
Date of Service March 06, 2019 Assessment & Plan (1) Recurrent falls: 87-year-old female with history of dementia recurrent falls presenting after suffering 3 falls today at [facility]. Patient with minor head trauma, nasal fracture. CT head and neck obtained and otherwise negative. Family reports that patient frequently falls. She is largely wheelchair-bound of late. Per family, patient has been having low blood pressures while at [facility] as well as occasionally high heart rate. Question if this is secondary to medication effect versus dehydration. Patient appears euvolemic on exam and reportedly eats and drinks well. Observation to medical floor Fall precautions PT/OT evaluation Wound care for abrasions Neurochecks every 4 hours Holding parameters for beta-pina Present on Admission?: Yes (2) Altered mental status: Family reports progressive decline over the last few months. Patient minimally verbal today. She is afebrile, bradycardic and borderline hypotensive while sleeping in the room. Oxygen saturation =88% on room air. I placed nasal cannula 2 L with improvement to 94%. CT head with a nasal fracture otherwise no acute process, labs otherwise unremarkable Awaiting results of UA We will check magnesium and phosphorus x1 and correct as needed We will check VBG and ammonia with a.m. labs Patient received Levaquin in the ER x1 dose. She is afebrile, no leukocytosis, no clear evidence of pneumonia on chest x-ray. Will defer further antibiotics for now. Delirium prevention strategies with frequent orientation. Family states that the best thing to do is just "let her sleep and do not try to wake her". She has been known to become rather agitated in the hospital setting. Present on Admission?: Yes (3) Closed head injury: Patient with multiple falls today, CT head and neck with fracture of nasal bones otherwise unremarkable. Neurochecks as above Present on Admission?: Yes (4) Laceration of left eyebrow: Repaired in ER. Wound care daily as needed Present on Admission?: Yes (5) Hypertension: Patient with borderline low blood pressure at present. Metoprolol at home dose with holding parameters Continue monitor Present on Admission?: Yes (6) GERD (gastroesophageal reflux disease): Patient with longstanding history of GERD with Mejia's esophagus Continue omeprazole and famotidine Present on Admission?: Yes (7) Hearing loss: Noted. Delirium prevention strategies with frequent orientation Present on Admission?: Yes (8) Dyslipidemia: Chronic. Stable. Continue atorvastatin Present on Admission?: Yes (9) TIA (transient ischemic attack): Prior TIA Continue aspirin and atorvastatin Present on Admission?: Yes (10) Dementia with behavioral disturbance: Chronic. Stable. Family notes functional decline over the past month. At baseline the patient is largely nonverbal now does not participate easily in conversation or activities and is wheelchair-bound. Continue Aricept and Namenda Continue Risperdal 3 times daily Continue Ativan. Will write for as needed rather than scheduled given patient's somnolence and recent head trauma. Continue trazodone and melatonin nightly Present on Admission?: Yes (11) Mejia's esophagus: As above. Continue famotidine and omeprazole Present on Admission?: Yes (12) Hypothyroid: Chronic. Stable. TSH = 2.47 Continue Synthroid Present on Admission?: Yes (13) Depression: Chronic. Stable. Continue sertraline Present on Admission?: Yes History of Present Illness Chief Complaint: Fall, altered mental status Primary Care Provider: [facility] Rita Weaver is an 79-year-old female with history of Alzheimer's dementia, anxiety/depression, hyperlipidemia, GERD, hypertension presenting from [facility] after a mechanical fall, reportedly the third fall today. Family is uncertain of the circumstances surrounding these falls. Patient is sleeping, not answering questions appropriately at the moment. Family reports that at baseline patient is mostly nonverbal. Additional reports of mild cough and confusion from [facility]. Family also notes that for the last month patient has had low blood pressure and occasionally high heart rates. No report of fever/chills/abdominal pain/nausea/vomiting/diarrhea/constipation. Patient has a fairly good appetite and is reported to eat 80% of her tray with meals. She was previously ambulating with a cane however, has been wheelchair-bound for the past few weeks. Family has noted a progressive functional decline over the past few months. Patient was previously housed at [facility] however, due to behavioral disturbances she was sent to [facility]. ER course: Levaquin 750 mg IV Allergies Allergy/AdvReac Type Severity Reaction Status Date / Time aspirin AdvReac Unknown contraindicated Verified 02/05/19 14:23 d/t gastritis Home Medications Home Medications Medication Instructions Recorded Confirmed Type atorvastatin [Lipitor] 20 mg PO DAILY 02/09/18 03/05/19 History levothyroxine [Synthroid] 100 mcg PO DAILY 02/09/18 03/05/19 History omeprazole 20 mg PO BID 02/09/18 03/05/19 History melatonin 10 mg capsule 10 mg PO HS cap 12/28/18 03/05/19 History sertraline 100 mg tablet 150 mg PO DAILY tab 12/30/18 03/05/19 History Preparation H 1 applic [place] BID PRN 01/15/19 03/05/19 History Therems-M 1 tab PO DAILY 01/15/19 03/05/19 History cholecalciferol (vitamin D3) 1,000 unit PO DAILY 01/15/19 03/05/19 History [Vitamin D3] donepezil 5 mg PO DAILY 01/15/19 03/05/19 History memantine 5 mg PO BID 01/15/19 03/05/19 History nystatin 1 applic TOPICAL BID PRN 01/15/19 03/05/19 History polyethylene glycol 3350 17 g PO DAILY 01/16/19 03/05/19 History famotidine 20 mg PO DAILY 02/05/19 03/05/19 History trazodone 100 mg PO HS 02/05/19 03/05/19 History aspirin [Ecotrin Low Strength] 81 mg PO QAM 30 Days #30 tab 02/16/19 03/05/19 Rx lorazepam 0.5 mg PO TID #10 tab 02/16/19 03/05/19 Rx risperidone 1 mg PO TID 30 Days #90 tab 02/16/19 03/05/19 Rx tramadol 50 mg PO Q4H PRN #10 tab 02/16/19 03/05/19 Rx acetaminophen [Acetaminophen Extra 1,000 mg PO TID PRN 03/05/19 03/05/19 History Strength] acetaminophen [Tylenol] 650 mg PO Q6H PRN 03/05/19 03/05/19 History metoprolol tartrate 12.5 mg PO Q12H 03/05/19 03/05/19 History Past Med/Surg History Medical History Alzheimer disease Anxiety Depression Dyslipidemia GERD (gastroesophageal reflux disease) GERD (gastroesophageal reflux disease) Hearing deficit Hearing loss Hyperlipidemia Hypothyroidism Osteoarthritis Osteoarthritis Surgical History History of bilateral tubal ligation History of discectomy History of esophagogastroduodenoscopy (EGD) History of tonsillectomy History of tooth extraction History of total abdominal hysterectomy and bilateral salpingo-oophorectomy History of total left hip replacement History of total right hip replacement Family History Brother Family history of diabetes mellitus Social History Preferred Language: Maori Communication Ability: confused Codifier Required: No Beliefs That Will Affect Care: None Current Living Situation: Personal Care Facility Current Living Situation Comment: [facility] current occupational status: 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 [employer] Feels Safe at Home: Yes Smoking Status: Unknown if ever smoked Hx Alcohol Use: No Hx Substance Use: No Review of Systems Review of Systems: Unobtainable due to cognitive status Physical Exam Physical Exam: General: patient sleeping,NAD, non-toxic in appearance Skin: warm, dry, abrasion on left hand with Steri-Strips in place, abrasion on nose, swelling of left eye HEENT: Pupils small, equal/round/reactive, anicteric sclera, conjunctiva without injection, external ear normal to inspection and nontender, nares patent, dry mucus membranes, dentition intact, no oropharyngeal lesions, neck supple, trachea midline, no LAD, no thyromegaly, no JVD Heart: +S1/S2, regular, bradycardic at 56 bpm, no m/r/g Lungs: Clear to auscultation anteriorly, equal air entry bilaterally, no rales/rhonchi/wheezes Abd: +BS, soft, NT/ND, no masses/organomegaly/ascites Ext: warm, 2+ pulses in UE/LE bilaterally, no clubbing/cyanosis, 1+ edema Neuro: Patient somnolent, does not follow commands or answer questions at this time Results & Data Vital Signs (Past 12 Hours) Vital Signs Temp Pulse Resp BP Pulse Ox 03/05/19 22:04 36.6 C 63 18 120/76 92 Laboratory Results Lab Results 03/05/19 03/05/19 03/05/19 Range/Units 22:33 22:33 22:33 WBC 5.97 (4.8-10.8) K/uL RBC 3.77 L (4.2-5.4) M/uL Hgb 11.8 L (12.0-16.0) g/dL Hct 36.2 L (37-47) % MCV 96.0 (80-100) fL MCH 31.3 (25-34) pg MCHC 32.6 (32-36) g/dL RDW Std Deviation 47.1 H (36.4-46.3) fL RDW Coeff of [place] 13.4 (11.5-14.5) % Plt Count 221 (130-400) K/uL MPV 9.0 (7.4-10.4) fL Immature Gran % (Auto) 0.3 % Neut % (Auto) 75.1 % Lymph % (Auto) 14.2 % [place] % (Auto) 9.0 % Eos % (Auto) 1.2 % Baso % (Auto) 0.2 % Immature Gran # (Auto) 0.02 (0.00-0.02) K/uL Neut # (Auto) 4.48 (1.4-6.5) K/uL Lymph # (Auto) 0.85 L (1.2-3.4) K/uL [place] # (Auto) 0.54 (0.11-0.59) K/uL Eos # (Auto) 0.07 (0-0.5) K/uL Baso # (Auto) 0.01 (0-0.2) K/uL PT 10.9 (9.0-12.0) Seconds INR 1.1 (0.9-1.1) Sodium 142 (136-145) mmol/L Potassium 4.1 (3.5-5.1) mmol/L Chloride 108 H (98-107) mmol/L Carbon Dioxide 30 (21-32) mmol/L Anion Gap 4.0 (3-11) BUN 23 H (7-18) mg/dl Creatinine 1.05 (0.6-1.2) mg/dl Est Cr Clr Drug Dosing 45.0 ml/min Est GFR ( Amer) 58.1 Est GFR (Non-Af Amer) 50.1 BUN/Creatinine Ratio 22.3 H (10-20) Glucose 99 (70-99) mg/dl Calcium 8.8 (8.5-10.1) mg/dl Total Bilirubin 0.3 (0.2-1) mg/dl AST 23 (15-37) U/L ALT 25 (12-78) U/L Alkaline Phosphatase 115 (45-117) U/L Troponin I < 0.015 (0-0.045) ng/ml Total Protein 6.3 L (6.4-8.2) gm/dl Albumin 3.0 L (3.4-5.0) gm/dl Globulin 3.3 (2.5-4.0) gm/dl Albumin/Globulin Ratio 0.9 (0.9-2) TSH 2.470 (0.300-4.500) uIu/ml Diagnostic Findings CT cervical spine wo con CLINICAL HISTORY: 79 years-old Female with fall. Acute head and neck injury status post fall COMPARISON: CT head of same day, CT cervical spine 02/28/2019 TECHNIQUE: Multiple axial CT images of the cervical spine were obtained without contrast. A dose lowering technique was utilized adhering to the principles of ALARA. FINDINGS: Degenerative related anterolisthesis C3 on C4, C4 on C5 and C7 on T1 is unchanged. Severe multilevel facet arthrosis. Advanced disc space narrowing at C5-C6, C6-C7 and T1-T2 redemonstrated with multilevel posterior disc osteophyte complex formations. Evaluation of the central canal and neuroforaminal structures are better evaluated by MRI. Severe multilevel foraminal narrowing is noted. Lung apices are clear. There is no pneumothorax. Nonspecific proximal esophageal wall thickening. No prevertebral soft tissue swelling. IMPRESSION: 1. No acute cervical spine fracture or subluxation. 2. Nonspecific proximal esophageal wall thickening. ACT 112: Negative or not required by law. The above report was generated using voice recognition software. It may contain grammatical, syntax or spelling errors. Electronically signed by: Joss Wells M.D. 03/05/2019 11:05 PM Dictated: 03/05/192258 Transcribed: 03/05/192258 XR chest 1V portable HISTORY: 79 years-old Female weakness acute weakness COMPARISON: Chest radiograph 02/16/2019 TECHNIQUE: Portable AP view of the chest FINDINGS: Left shoulder arthroplasty. Degenerative changes of the right shoulder and spine. Moderate right hemidiaphragmatic elevation. Cardiomegaly with pulmonary vascular congestion. Calcified left hilar lymph nodes. Ill-defined right perih ilar opacities have progressed from prior. No pneumothorax or large pleural effusion. No overt pulmonary edema. Degenerative changes of the shoulders and spine. IMPRESSION: 1. Cardiomegaly without overt pulmonary edema. 2. Right perihilar opacities may reflect normal hilar structures accentuated by patient rotation versus underlying airspace disease. 3. Right hemidiaphragmatic elevation redemonstrated. ACT 112: Negative or not required by law. The above report was generated using voice recognition software. It may contain grammatical, syntax or spelling errors. Electronically signed by: Joss Wells M.D. 03/05/2019 10:47 PM Dictated: 03/05/192244 Transcribed: 03/05/192244 CT head/brain wo con CLINICAL HISTORY: 79 years-old Female with fall. Acute head injury status post fall TECHNIQUE: Multiple axial CT images of the head were obtained without contrast. A dose lowering technique was utilized adhering to the principles of ALARA. CT DOSE: 1578.68 mGy.cm COMPARISON: Head CT 02/28/2019 FINDINGS: No acute intracranial hemorrhage, midline shift, intracranial mass, hydrocephalus, territorial ischemia or abnormal extra-axial collection. Age- related involutional changes with ex vacuo ventriculomegaly. Patchy white matter hypodensities suggest chronic microvascular ischemic disease. Cerebral vascular calcifications also noted. Acute mildly displaced right nasal bone fracture. Adjacent soft tissue swelling. Prior right-sided cataract repair. The calvarium is intact. The paranasal sinuses, mastoid air cells, and middle ear cavities are clear. IMPRESSION: 1. No acute intracranial abnormality or calvarial fracture. 2. Acute mildly displaced right nasal bone fracture with adjacent soft tissue swelling. ACT 112: Negative or not required by law. The above report was generated using voice recognition software. It may contain grammatical, syntax or spelling errors. Electronically signed by: Joss Wells M.D. 03/05/2019 10:59 PM Dictated: 03/05/197 Transcribed: 03/05/192256 Code Status & VTE Plan Code Status DNR/DNI VTE Prophylaxis Plan VTE Prophylaxis will be ordered: Yes PG Care Time/CCT Total # of Minutes Spent Total Time Spent with Patient: Total time spent is greater than 50% in coordination of care (as documented) at patient's floor/unit and/or counseling patient: (1) Closed head injury Encounter type: initial encounter Qualified Code(s): S09.90XA - Unspecified injury of head, initial encounter (2) Laceration of left eyebrow Encounter type: initial encounter Qualified Code(s): S01.112A - Laceration without foreign body of left eyelid and periocular area, initial encounter (3) Hypertension Hypertension type: essential hypertension Qualified Code(s): I10 - Essential (primary) hypertension (4) GERD (gastroesophageal reflux disease) Esophagitis presence: esophagitis presence not specified Qualified Code(s): K21.9 - Gastro-esophageal reflux disease without esophagitis (5) Hearing loss Hearing loss type: unspecified Laterality: bilateral Qualified Code(s): H91.93 - Unspecified hearing loss, bilateral (6) Dementia with behavioral disturbance Dementia type: Alzheimer's disease Alzheimer's disease onset: unspecified onset Qualified Code(s): G30.9 - Alzheimer's disease, unspecified; F02.81 - Dementia in other diseases classified elsewhere with behavioral disturbance (7) Mejia's esophagus Mejia's esophagus type: with dysplasia of unspecified degree Qualified Code(s): K22.719 - Mejia's esophagus with dysplasia, unspecified (8) Hypothyroid Hypothyroidism type: unspecified Qualified Code(s): E03.9 - Hypothyroidism, unspecified (9) Depression Depression Type: unspecified Qualified Code(s): F32.9 - Major depressive disorder, single episode, unspecified (10) Altered mental status Altered mental status type: somnolence Qualified Code(s): R40.0 - Somnolence
[2019-03-06 02:28] LABS: Appearance Urine Cloudy (Clear); Bacteria Urine Automated Negative (Negative); Bilirubin Urine Negative (Negative); Blood Urine Negative (Negative); Color Urine Dark Yellow; Epithelial Cell Urine Auto 20-30 /lpf (0-5); Glucose Urine UA Negative (Negative); Ketones Urine Negative (Negative); Leukocyte Esterase Urine Negative (Negative); Nitrite Urine Negative (Negative); Protein Urine Trace (Negative); Urobilinogen Urine Negative (Negative)
[2019-03-06 02:50] LABS: Mucus Urine Present (None Prsent)
[2019-03-06 02:53] LABS: Calcium Oxalate Crystals Urine Present (None Prsent)
[2019-03-06] MEDS ORDERED: NYSTATIN CR 15 GM TUBE EXT PRN (03:42)
[2019-03-06] MEDS ORDERED: TRAMADOL HCL 50 MG TABLET PO PRN (03:42)
[2019-03-06] MEDS ORDERED: DOCUSATE SODIUM 100 MG CAP PO PRN (03:42)
[2019-03-06 04:14] LABS: Basophils # (auto) 0.01 K/uL (0-0.2); Basophils % (auto) 0.2 %; Eosinophils # (auto) 0.12 K/uL (0-0.5); Eosinophils % (auto) 2.3 %; Hematocrit (blood only) 33.9 % (37-47); Immature Granulocytes # (auto) 0.01 K/uL (0.00-0.02); Immature Granulocytes % (auto) 0.2 %; Lymphocytes # (auto) 1.05 K/uL (1.2-3.4); Lymphocytes % (auto) 20.3 %; Mean Corpuscular Hemoglobin 31.3 pg (25-34); Mean Corpuscular Hgb Conc 32.4 g/dL (32-36); Mean Corpuscular Volume 96.6 fL (80-100); Mean Platelet Volume 8.6 fL (7.4-10.4); Monocytes # (auto) 0.55 K/uL (0.11-0.59); Monocytes % (auto) 10.6 %; Neutrophils # (auto) 3.44 K/uL (1.4-6.5); Neutrophils % (auto) 66.4 %; Platelet Count 185 K/uL (130-400); RDW Coefficient of Variation 13.7 % (11.5-14.5); Red Blood Count 3.51 M/uL (4.2-5.4); White Blood Count 5.18 K/uL (4.8-10.8)
[2019-03-06 04:26] LABS: HCO3 VBG 30 mmol/L; PCO2 VBG 59 mmHg (38-50); PO2 VBG 37 mmHg; pH VBG 7.32 (7.36-7.41)
[2019-03-06 04:31] LABS: BUN Creatinine Ratio 22.6 (10-20); Calcium 8.2 mg/dl (8.5-10.1); Creatinine Clr Calc Pharmacy 49.3 ml/min; Est GFR (African American) 64.7; Est GFR (Non-African American) 55.9; Magnesium 2.3 mg/dl (1.8-2.4); Oxygen Saturation VBG < 60.0 %; Phosphorus 4.2 mg/dl (2.5-4.9); Potassium 3.8 mmol/L (3.5-5.1)
--- NOTE | 2019-03-06 05:08 | CT Scan Report ---
CT facial bones wo con CLINICAL HISTORY: 79 years-old Female presenting with fall, head and facial trauma. TECHNIQUE: Multidetector CT of the face was performed without the use of intravenous contrast. IV con trast: None. One or more dose lowering techniques were used consistent with the principles of ALARA ( as low as reasonably achievable), including automatic exposure control, mA or kV adjustment to indivi dual patient size, and/or use of iterative reconstruction. COMPARISON: 02/24/2016. CT DOSE (mGy.cm): The estimated cumulative dose is 1578.68. FINDINGS: [employer] Equipment [employer]r topogram: Orthopedic hardware. Superficial soft tissues of the face demonstrate swelling and infiltration over the nares. No other s ites of contusion. No hematoma. Orbits demonstrate an absent [place] right lens. Limited intracranial evaluation demonstrates extensive parenchymal volume loss, likely age-related. Mandible and teeth intact allowing for amalgam. Temporomandibular joints intact. Degenerative changes of the left TMJ. Paranasal sinuses and mastoid air cells with scant mucosal thickening. Bony nasal s eptum deviated to the right likely on a chronic basis. No nasal septal fracture. Bilateral mildly com minuted fractures of the nasal bones greater on the right. Minimal soft tissue emphysema noted. Zygom atic processes intact. Pterygoid plates intact. IMPRESSION: 1. Bilateral mildly comminuted nasal bone fractures greater on the right. 2. Overlying soft tissue contusion. ACT 112: Negative or not required by law. Electronically signed by: Wally Lorenzo M.D. 03/06/2019 5:07 AM
[2019-03-06] MEDS: LEVOTHYROXINE SODIUM 100 MCG TABLET PO SCH (05:50)
[2019-03-06] MEDS: METOPROLOL TARTRATE 25 MG TAB PO SCH ×2 (09:04→20:34)
[2019-03-06] MEDS: ATORVASTATIN 20 MG TAB PO SCH (09:05)
[2019-03-06] MEDS: DONEPEZIL HCL 5 MG TAB PO SCH (09:05)
[2019-03-06] MEDS: PANTOprazole 40 MG TAB PO SCH ×2 (09:05→20:35)
[2019-03-06] MEDS: SERTRALINE HCL 50 MG TABLET PO SCH (09:05)
[2019-03-06] MEDS: ASPIRIN 81 MG ECTAB PO SCH (09:05)
[2019-03-06] MEDS: CHOLECALCIFEROL 1,000 UNITS 25 MCG TAB PO SCH (09:05)
[2019-03-06] MEDS: MEMANTINE HCL 5 MG TAB PO SCH ×2 (09:06→20:34)
[2019-03-06] MEDS: CEROVITE ADV FORMULA TAB PO SCH (09:06)
[2019-03-06] MEDS: RISPERIDONE ODT 1MG PO SCH ×3 (09:06→20:32)
[2019-03-06] MEDS: FAMOTIDINE 20 MG TAB PO SCH (09:07)
[2019-03-06] MEDS: POLYETHYLENE (MIRALAX) 17 GM PACK PO SCH (09:07)
[2019-03-06] MEDS: [UNRECOGNIZED DRUG - REMARK] SCH ×2 (09:07→15:20)
[2019-03-06] MEDS: LORazepam 0.5 MG TAB PO PRN ×3 (09:35→23:11)
--- NOTE | 2019-03-06 15:49 | XRay Report ---
XR chest 1V portable CLINICAL HISTORY: 79 years-old Female presenting with acute resp failure; ?CHF v pneumonia?. TECHNIQUE: Portable upright AP view of the chest was obtained. COMPARISON: 03/05/2019. FINDINGS: Atherosclerosis of the aortic arch. Cardiac silhouette enlarged. Mild pulmonary vascular prominence. Calcified mediastinal and left hilar lymph nodes. Mild pulmonary vascular prominence. Low lung volume s. Bronchial wall thickening is suspected. No focal opacity. No large effusion or pneumothorax. Degen erative changes of the thoracic spine. Partially visualized left shoulder arthroplasty. Degenerative changes of the right shoulder. Lumbar fusion hardware. Upper abdomen normal. IMPRESSION: 1. Low lung volumes with suspected bronchial wall thickening. This could either relate to congestive change or bronchitis. 2. Cardiomegaly. No convincing evidence of pulmonary edema. ACT 112: Negative or not required by law. Electronically signed by: Wally Lorenzo M.D. 03/06/2019 3:48 PM
[2019-03-06] MEDS: ALBUT/IPRATROP 3MG/0.5MG NEB 3 ML VIAL NEB SCH ×2 (16:38→19:30)
[2019-03-06] MEDS ORDERED: FUROSEMIDE 20 MG in SYRINGE 0 ML IV ONE (17:00)
[2019-03-06] MEDS ORDERED: risperiDONE ODT 0.5 MG SOLTAB PO STA (17:11)
[2019-03-06] MEDS: methylPREDNISolone 40 MG in SYRINGE 0 ML IV SCH (18:08)
--- NOTE | 2019-03-06 19:25 | Hospitalist Progress Note ---
Date of Service March 06, 2019 Assessment & Plan (1) Acute respiratory failure with hypoxia and hypercapnia: I repeated the pt's cxr today. There are significantly low lung volumes on such. She has course breath sounds on exam. I am uncertain if she has acute bronchitis and/or acute CHF and/or developing pneumonia. She received IV levaquin in the ER yesterday for ?pneumonia?. Will give lasix 20mg IV x 1 (JVD, edema on exam) along with IV steroids. Hold on additional antibiotics for now but low threshold to reinstitute them. Nebs q6h if she can tolerate them. Re-eval in am. (2) Dementia with behavioral disturbance: By report has advanced dementia; takes Aricept and Namenda. Largely nonverbal by report and ?nonambulatory. Has had significant behavioral disturbance since arrival in hospital. Cannot rule out infectious causes contributing to behavioral issues although no fever and normal wbc count. Increase risperdal to 1.5mg TID. Cont ativan prn. Continue trazodone and melatonin nightly as previous (chronic meds for her) (3) Recurrent falls: Patient with nasal fracture from recent fall. CT head and neck negative. Will remain at high risk of ongoing falls due to advanced dementia. Sitter remains at bedside to ensure safety. (4) Altered mental status: Worsening dementia ? metabolic from brewing infectious process ? other ? supportive care. increase risperdal to 1.5mg TID. (5) Closed head injury: CT head w/o ICH Nasal Fx - no Rx (6) Laceration of left eyebrow: Repaired in ER. Wound care as needed. (7) Hypertension: BPs wnl today (8) GERD (gastroesophageal reflux disease): Continue omeprazole and famotidine (9) Hearing loss: Noted (10) Dyslipidemia: Continue atorvastatin (11) TIA (transient ischemic attack): h/o such. cont asa for secondary prevention. (12) Mejia's esophagus: Continue famotidine and omeprazole (13) Hypothyroid: TSH 2.47 Continue Synthroid (14) Depression: Continue SSRI (15) DVT prophylaxis: hold off on chemical means today in light of head injury yesterday consider starting heparin tomorrow will update daughter tonight Subjective staff report significant agitation, getting out of bed, etc requiring the use of 1:1 observation with a sitter. she has required frequent ativan use because of agitation. with such she becomes calm and often falls asleep. during my bedside rounds she was sleeping. staff report that she didn't voice c/o pain when she was awake today. Review of Systems Review of Systems: Unobtainable due to cognitive status Physical Exam Constitutional: no acute distress ENMT: Mouth: + dry oral mucous membranes Respiratory: + tachypneic Auscultation: + crackles (occasional) and + wheezes course BS b/l Cardiovascular: Rate/Rhythm: regular rate and regular rhythm Heart Sounds: normal S1 and normal S2 Vessels: + JVD (mild), posterior tibial pulses present and dorsalis pedis pulses present Extremities: + edema (2+ b/l to mid-calf) Gastrointestinal (Abdomen): normal bowel sounds, soft, nontender, no hepatosplenomegaly Skin: ecchymoses near left eye Psychiatric: Orientation: + not alert and + not oriented x 3 Results & Data Vital Signs (Past 12 Hours) Vital Signs Temp Pulse Resp BP Pulse Ox 03/06/19 15:21 36.8 C 72 18 108/62 96 03/06/19 07:12 36.4 C L 61 18 127/64 100 Laboratory Results Laboratory Results - last 24 hr 03/05/19 03/05/19 03/05/19 22:33 22:33 22:33 WBC 5.97 RBC 3.77 L Hgb 11.8 L Hct 36.2 L MCV 96.0 MCH 31.3 MCHC 32.6 RDW Std Deviation 47.1 H RDW Coeff of [place] 13.4 Plt Count 221 MPV 9.0 Immature Gran % (Auto) 0.3 Neut % (Auto) 75.1 Lymph % (Auto) 14.2 Travis % (Auto) 9.0 Eos % (Auto) 1.2 Baso % (Auto) 0.2 Immature Gran # (Auto) 0.02 Neut # (Auto) 4.48 Lymph # (Auto) 0.85 L Travis # (Auto) 0.54 Eos # (Auto) 0.07 Baso # (Auto) 0.01 PT 10.9 INR 1.1 VBG pH VBG pCO2 VBG pO2 VBG HCO3 VBG O2 Saturation VBG Base Excess Sodium 142 Potassium 4.1 Chloride 108 H Carbon Dioxide 30 Anion Gap 4.0 BUN 23 H Creatinine 1.05 Est Cr Clr Drug Dosing 45.0 Est GFR ( Amer) 58.1 Est GFR (Non-Af Amer) 50.1 BUN/Creatinine Ratio 22.3 H Glucose 99 Calcium 8.8 Phosphorus Magnesium Total Bilirubin 0.3 AST 23 ALT 25 Alkaline Phosphatase 115 Ammonia Troponin I < 0.015 Total Protein 6.3 L Albumin 3.0 L Globulin 3.3 Albumin/Globulin Ratio 0.9 TSH 2.470 Urine Color Urine Appearance Urine pH Ur Specific [place] Urine Protein Urine Glucose (UA) Urine Ketones Urine Blood Urine Nitrite Urine Bilirubin Urine Urobilinogen Ur Leukocyte Esterase Urine WBC (Auto) Urine RBC (Auto) U Hyaline Cast (Auto) U Epithel Cells (Auto) Urine Bacteria (Auto) Urine Crystals Calcium Oxalate Crystal Urine Mucus Nasal Screen MRSA (PCR) 03/06/19 03/06/19 03/06/19 02:10 04:02 04:02 WBC 5.18 RBC 3.51 L Hgb 11.0 L Hct 33.9 L MCV 96.6 MCH 31.3 MCHC 32.4 RDW Std Deviation 48.0 H RDW Coeff of [place] 13.7 Plt Count 185 MPV 8.6 Immature Gran % (Auto) 0.2 Neut % (Auto) 66.4 Lymph % (Auto) 20.3 Travis % (Auto) 10.6 Eos % (Auto) 2.3 Baso % (Auto) 0.2 Immature Gran # (Auto) 0.01 Neut # (Auto) 3.44 Lymph # (Auto) 1.05 L Travis # (Auto) 0.55 Eos # (Auto) 0.12 Baso # (Auto) 0.01 PT INR VBG pH VBG pCO2 VBG pO2 VBG HCO3 VBG O2 Saturation VBG Base Excess Sodium 142 Potassium 3.8 Chloride 109 H Carbon Dioxide 31 Anion Gap 2.0 L BUN 22 H Creatinine 0.96 Est Cr Clr Drug Dosing 49.3 Est GFR ( Amer) 64.7 Est GFR (Non-Af Amer) 55.9 BUN/Creatinine Ratio 22.6 H Glucose 103 H Calcium 8.2 L Phosphorus 4.2 Magnesium 2.3 Total Bilirubin AST ALT Alkaline Phosphatase Ammonia Troponin I Total Protein Albumin Globulin Albumin/Globulin Ratio TSH Urine Color Dark Yellow Urine Appearance Cloudy A Urine pH 5.0 Ur Specific [place] 1.030 Urine Protein Trace H Urine Glucose (UA) Negative Urine Ketones Negative Urine Blood Negative Urine Nitrite Negative Urine Bilirubin Negative Urine Urobilinogen Negative Ur Leukocyte Esterase Negative Urine WBC (Auto) 1-5 Urine RBC (Auto) 5-10 H U Hyaline Cast (Auto) 5-10 H U Epithel Cells (Auto) 20-30 H Urine Bacteria (Auto) Negative Urine Crystals Not Reportable Calcium Oxalate Crystal Present A Urine Mucus Present A Nasal Screen MRSA (PCR) 03/06/19 03/06/19 03/06/19 04:02 04:02 06:03 WBC RBC Hgb Hct MCV MCH MCHC RDW Std Deviation RDW Coeff of [place] Plt Count MPV Immature Gran % (Auto) Neut % (Auto) Lymph % (Auto) Travis % (Auto) Eos % (Auto) Baso % (Auto) Immature Gran # (Auto) Neut # (Auto) Lymph # (Auto) Travis # (Auto) Eos # (Auto) Baso # (Auto) PT INR VBG pH 7.32 L VBG pCO2 59 H VBG pO2 37 VBG HCO3 30 VBG O2 Saturation < 60.0 VBG Base Excess Not Reportable Sodium Potassium Chloride Carbon Dioxide Anion Gap BUN Creatinine Est Cr Clr Drug Dosing Est GFR ( Amer) Est GFR (Non-Af Amer) BUN/Creatinine Ratio Glucose Calcium Phosphorus Magnesium Total Bilirubin AST ALT Alkaline Phosphatase Ammonia 25.0 Troponin I Total Protein Albumin Globulin Albumin/Globulin Ratio TSH Urine Color Urine Appearance Urine pH Ur Specific [place] Urine Protein Urine Glucose (UA) Urine Ketones Urine Blood Urine Nitrite Urine Bilirubin Urine Urobilinogen Ur Leukocyte Esterase Urine WBC (Auto) Urine RBC (Auto) U Hyaline Cast (Auto) U Epithel Cells (Auto) Urine Bacteria (Auto) Urine Crystals Calcium Oxalate Crystal Urine Mucus Nasal Screen MRSA (PCR) Negative PG Care Time/CCT Total # of Minutes Spent Total Time Spent with Patient: Total time spent is greater than 50% in coordination of care (as documented) at patient's floor/unit and/or counseling patient: (1) Altered mental status Altered mental status type: somnolence Qualified Code(s): R40.0 - Somnolence (2) Closed head injury Encounter type: initial encounter Qualified Code(s): S09.90XA - Unspecified injury of head, initial encounter (3) Laceration of left eyebrow Encounter type: initial encounter Qualified Code(s): S01.112A - Laceration without foreign body of left eyelid and periocular area, initial encounter (4) Hypertension Hypertension type: essential hypertension Qualified Code(s): I10 - Essential (primary) hypertension (5) GERD (gastroesophageal reflux disease) Esophagitis presence: esophagitis presence not specified Qualified Code(s): K21.9 - Gastro-esophageal reflux disease without esophagitis (6) Hearing loss Hearing loss type: unspecified Laterality: bilateral Qualified Code(s): H91.93 - Unspecified hearing loss, bilateral (7) Dementia with behavioral disturbance Dementia type: Alzheimer's disease Alzheimer's disease onset: unspecified onset Qualified Code(s): G30.9 - Alzheimer's disease, unspecified; F02.81 - Dementia in other diseases classified elsewhere with behavioral disturbance (8) Mejia's esophagus Mejia's esophagus type: with dysplasia of unspecified degree Qualified Code(s): K22.719 - Mejia's esophagus with dysplasia, unspecified (9) Hypothyroid Hypothyroidism type: unspecified Qualified Code(s): E03.9 - Hypothyroidism, unspecified (10) Depression Depression Type: unspecified Qualified Code(s): F32.9 - Major depressive disorder, single episode, unspecified
[2019-03-06] MEDS: TRAZODONE HCL 100 MG TAB PO SCH (20:33)
[2019-03-06] MEDS: ACETAMINOPHEN 500 MG TAB PO PRN (23:30)
[2019-03-07] MEDS ORDERED: OLANZAPINE ZYDIS 5 MG ORALLY DIS. TAB PO ONE (01:13)
[2019-03-07] MEDS ORDERED: LORazepam 0.5 MG TAB PO ONE (01:13)
[2019-03-07] MEDS: [UNRECOGNIZED DRUG - REMARK] SCH ×4 (01:27→22:54)
[2019-03-07] MEDS: ALBUT/IPRATROP 3MG/0.5MG NEB 3 ML VIAL NEB SCH ×4 (07:16→19:41)
[2019-03-07] MEDS: LORazepam 0.5 MG TAB PO PRN ×2 (07:40→22:02)
[2019-03-07] MEDS: CEROVITE ADV FORMULA TAB PO SCH (07:41)
[2019-03-07] MEDS: LEVOTHYROXINE SODIUM 100 MCG TABLET PO SCH (07:41)
[2019-03-07] MEDS: DONEPEZIL HCL 5 MG TAB PO SCH (07:41)
[2019-03-07] MEDS: ATORVASTATIN 20 MG TAB PO SCH (07:41)
[2019-03-07] MEDS: PANTOprazole 40 MG TAB PO SCH ×2 (07:41→20:31)
[2019-03-07] MEDS: METOPROLOL TARTRATE 25 MG TAB PO SCH ×2 (07:41→20:32)
[2019-03-07] MEDS: RISPERIDONE ODT 1MG PO SCH ×3 (07:41→20:31)
[2019-03-07] MEDS: CHOLECALCIFEROL 1,000 UNITS 25 MCG TAB PO SCH (07:41)
[2019-03-07] MEDS: MEMANTINE HCL 5 MG TAB PO SCH ×2 (07:41→20:31)
[2019-03-07] MEDS: FAMOTIDINE 20 MG TAB PO SCH (07:42)
[2019-03-07] MEDS: ASPIRIN 81 MG ECTAB PO SCH (07:42)
[2019-03-07] MEDS: POLYETHYLENE (MIRALAX) 17 GM PACK PO SCH (07:42)
[2019-03-07] MEDS: SERTRALINE HCL 50 MG TABLET PO SCH (07:45)
[2019-03-07 09:01] LABS: BUN Creatinine Ratio 15.9 (10-20); Calcium 9.3 mg/dl (8.5-10.1); Est GFR (African American) 69.1; Est GFR (Non-African American) 59.6; Potassium 3.8 mmol/L (3.5-5.1)
[2019-03-07] MEDS: methylPREDNISolone 40 MG in SYRINGE 0 ML IV SCH (09:42)
[2019-03-07] MEDS ORDERED: FUROSEMIDE 20 MG in SYRINGE 0 ML IV ONE (10:00)
--- NOTE | 2019-03-07 15:40 | Hospitalist Progress Note ---
Date of Service March 07, 2019 Assessment & Plan (1) Acute respiratory failure with hypoxia and hypercapnia: Improved/resolved. Exact cause of her acute resp failure was not fully certain. May have been combination of aspiration +/- pulmonary edema +/- bronchitis. Either way she is much improved today and is off O2. Her lungs sound better today. CXR yesterday with significantly reduced lung volumes. Will give 1 additional dose of IV lasix today. Cont IV steroids; reduce to 30mg IV q12h; can likely go to PO prednisone tomorrow. Defer on antibiotics for now. Will have speech eval to r/o aspiration. (2) Pulmonary edema: s/p lasix IV yesterday. BUN & Cr remain stable. Give another dose of IV lasix today. Re-eval tomorrow. BMP am. Echo 01/2019 with preserved EF. Thus, edema likely 2nd to diastolic dysfunction. (3) Nasal bone fracture: Plan ENT f/u shortly after discharge. Pain control in meantime. (4) Dementia with behavioral disturbance: By report has advanced dementia; takes Aricept and Namenda. Largely nonverbal and nonambulatory. Declined over the last 4-6 weeks. Has had significant behavioral disturbance since arrival in hospital. Cannot rule out infectious causes contributing to behavioral issues although no fever and normal wbc count. Her symptoms have improved with increase of risperdal to 1.5mg TID. Cont ativan prn. Continue trazodone and melatonin nightly as previous (chronic meds for her) As mental status improves would TRY TO REDUCE THE RISPERDAL back to previous dosing of 1mg TID. (5) Recurrent falls: Patient with nasal fracture from recent fall. CT head and neck negative. Will remain at high risk of ongoing falls due to advanced dementia. Sitter remains at bedside to ensure safety. (6) Altered mental status: Pt had been declining at SNF over last 4-6 weeks by report. Upon admission here had severe hospital psychosis. Risperdal increased to 1.5mg TID. No infectious etiologies found contributing to altered MS. Supportive care. Overall she looks better today. (7) Closed head injury: CT head w/o ICH Nasal Fx - no Rx - ENT f/u post-d/c (8) Laceration of left eyebrow: Repaired in ER. Wound care as needed. (9) Hypertension: BPs continue to be wnl (10) GERD (gastroesophageal reflux disease): Continue omeprazole and famotidine (11) Hearing loss: Noted (12) Dyslipidemia: Continue atorvastatin (13) TIA (transient ischemic attack): h/o such. cont asa for secondary prevention. (14) Mejia's esophagus: Continue famotidine and omeprazole (15) Hypothyroid: TSH 2.47 Continue Synthroid (16) Depression: Continue SSRI (17) DVT prophylaxis: will start heparin 5000 BID today facial injuries have been stable daughter extensively updated by phone on 03/06/19 Subjective patient sitting in chair during my visit. she did try to speak several times but what she said was very difficult to understand. she was drooling during the visit. staff report she had a good bowel movement this am and also ate decently at breakfast. she was agitated much of the night - required extra ativan again. Review of Systems Review of Systems: Unobtainable due to cognitive status Physical Exam Constitutional: + altered mental status; no acute distress sitting in chair comfortably ENMT: external ear and nose normal, oropharynx normal Respiratory: no respiratory distress Auscultation: + diminished lung sounds (bases) and + crackles (faint - bases); no wheezes Cardiovascular: Rate/Rhythm: regular rate and regular rhythm Heart Sounds: normal S1 and normal S2 Vessels: posterior tibial pulses present and dorsalis pedis pulses present; no JVD Extremities: + edema (1+ b/l today) Gastrointestinal (Abdomen): normal bowel sounds, soft, nontender, no hepatosplenomegaly Skin: + ecchymosis (over left eye) abrasions on nose Neurologic: speech garbly/dysarthric Psychiatric: Orientation: alert; + not oriented x 3 Results & Data Vital Signs (Past 12 Hours) Vital Signs Temp Pulse Pulse Resp BP Pulse Ox 03/07/19 15:17 80 16 94 03/07/19 10:39 78 18 96 03/07/19 08:00 36.5 C 86 18 139/81 98 03/07/19 07:21 80 18 96 Laboratory Results Laboratory Results - last 24 hr 03/07/19 08:26 Sodium 142 Potassium 3.8 Chloride 105 Carbon Dioxide 35 H Anion Gap 3.0 BUN 15 Creatinine 0.91 Est Cr Clr Drug Dosing 51.0 Est GFR ( Amer) 69.1 Est GFR (Non-Af Amer) 59.6 BUN/Creatinine Ratio 15.9 Glucose 104 H Calcium 9.3 PG Care Time/CCT Total # of Minutes Spent Total Time Spent with Patient: Total time spent is greater than 50% in coordination of care (as documented) at patient's floor/unit and/or counseling patient: (1) Dementia with behavioral disturbance Alzheimer's disease onset: unspecified onset Dementia type: Alzheimer's disease Qualified Code(s): G30.9 - Alzheimer's disease, unspecified; F02.81 - Dementia in other diseases classified elsewhere with behavioral disturbance (2) Hearing loss Hearing loss type: unspecified Laterality: bilateral Qualified Code(s): H91.93 - Unspecified hearing loss, bilateral (3) Closed head injury Encounter type: initial encounter Qualified Code(s): S09.90XA - Unspecified injury of head, initial encounter (4) Depression Depression Type: unspecified Qualified Code(s): F32.9 - Major depressive disorder, single episode, unspecified (5) Hypothyroid Hypothyroidism type: unspecified Qualified Code(s): E03.9 - Hypothyroidism, unspecified (6) Altered mental status Altered mental status type: somnolence Qualified Code(s): R40.0 - Somnolence (7) GERD (gastroesophageal reflux disease) Esophagitis presence: esophagitis presence not specified Qualified Code(s): K21.9 - Gastro-esophageal reflux disease without esophagitis (8) Mejai's esophagus Mejia's esophagus type: with dysplasia of unspecified degree Qualified Code(s): K22.719 - Mejia's esophagus with dysplasia, unspecified (9) Hypertension Hypertension type: essential hypertension Qualified Code(s): I10 - Essential (primary) hypertension (10) Laceration of left eyebrow Encounter type: initial encounter Qualified Code(s): S01.112A - Laceration without foreign body of left eyelid and periocular area, initial encounter (11) Pulmonary edema Chronicity: acute Qualified Code(s): J81.0 - Acute pulmonary edema (12) Nasal bone fracture Encounter type: subsequent encounter Fracture type: closed Fracture healing: with routine healing Qualified Code(s): S02.2XXD - Fracture of nasal bones, subsequent encounter for fracture with routine healing
[2019-03-07] MEDS: TRAZODONE HCL 100 MG TAB PO SCH (20:32)
[2019-03-07] MEDS: HEPARIN SOD 5,000 UNIT/0.5 ML VIAL SQ SCH (20:32)
[2019-03-07] MEDS ORDERED: methylPREDNISolone 30 MG in SYRINGE 0 ML IV SCH (21:00)
[2019-03-07] MEDS: ACETAMINOPHEN 500 MG TAB PO PRN (21:36)
[2019-03-08] MEDS: HEPARIN SOD 5,000 UNIT/0.5 ML VIAL SQ SCH ×2 (05:45→13:19)
[2019-03-08] MEDS: LEVOTHYROXINE SODIUM 100 MCG TABLET PO SCH ×2 (05:46→06:03)
[2019-03-08 06:45] LABS: Calcium 8.5 mg/dl (8.5-10.1); Creatinine Clr Calc Pharmacy 53.3 ml/min; Est GFR (African American) 72.9; Est GFR (Non-African American) 62.9; Potassium 4.5 mmol/L (3.5-5.1)
[2019-03-08] MEDS: ALBUT/IPRATROP 3MG/0.5MG NEB 3 ML VIAL NEB SCH ×3 (07:09→15:15)
[2019-03-08] MEDS: [UNRECOGNIZED DRUG - REMARK] SCH ×2 (07:54→15:56)
[2019-03-08] MEDS: RISPERIDONE ODT 1MG PO SCH ×2 (07:54→13:17)
[2019-03-08] MEDS: ATORVASTATIN 20 MG TAB PO SCH (07:54)
[2019-03-08] MEDS: CEROVITE ADV FORMULA TAB PO SCH (07:54)
[2019-03-08] MEDS: POLYETHYLENE (MIRALAX) 17 GM PACK PO SCH (08:00)
[2019-03-08] MEDS: FAMOTIDINE 20 MG TAB PO SCH (08:00)
[2019-03-08] MEDS: METOPROLOL TARTRATE 25 MG TAB PO SCH (08:00)
[2019-03-08] MEDS: DONEPEZIL HCL 5 MG TAB PO SCH (08:01)
[2019-03-08] MEDS: MEMANTINE HCL 5 MG TAB PO SCH (08:01)
[2019-03-08] MEDS: CHOLECALCIFEROL 1,000 UNITS 25 MCG TAB PO SCH (08:01)
[2019-03-08] MEDS: ASPIRIN 81 MG ECTAB PO SCH (08:02)
[2019-03-08] MEDS: PANTOprazole 40 MG TAB PO SCH (08:02)
[2019-03-08] MEDS: SERTRALINE HCL 50 MG TABLET PO SCH (08:02)
[2019-03-08] MEDS ORDERED: predniSONE 20 MG TAB PO SCH (09:00)
[2019-03-08] MEDS: ACETAMINOPHEN 500 MG TAB PO PRN (12:19)
[2019-03-08] MEDS: LORazepam 0.5 MG TAB PO PRN (13:19)
--- NOTE | 2019-03-08 16:49 | Discharge Summary ---
Date of Service March 08, 2019 Admission HPI Per Admitting Provider Rita Weaver is an 79-year-old female with history of Alzheimer's dementia, anxiety/depression, hyperlipidemia, GERD, hypertension presenting from [facility] after a mechanical fall, reportedly the third fall today. Family is uncertain of the circumstances surrounding these falls. Patient is sleeping, not answering questions appropriately at the moment. Family reports that at baseline patient is mostly nonverbal. Additional reports of mild cough and confusion from [facility]. Family also notes that for the last month patient has had low blood pressure and occasionally high heart rates. No report of fever/chills/abdominal pain/nausea/vomiting/diarrhea/constipation. Patient has a fairly good appetite and is reported to eat 80% of her tray with meals. She was previously ambulating with a cane however, has been wheelchair-bound for the past few weeks. Family has noted a progressive functional decline over the past few months. Patient was previously housed at [facility] however, due to behavioral disturbances she was sent to [facility]. ER course: Levaquin 750 mg IV Principal Diagnosis Acute hypoxic respiratory failure Discharge Exam Constitutional WD/WN, vitals as above Eyes PERRL, conjunctivae normal, anicteric sclerae ENMT external ear and nose normal, oropharynx normal Neck trachea midline, no thyromegaly Respiratory normal respiratory effort, lungs clear to auscultation Cardiovascular RRR, no murmur, no edema Gastrointestinal (Abdomen) normal bowel sounds, soft, nontender, no hepatosplenomegaly Musculoskeletal no cyanosis or clubbing, extremities motor strength 5/5 Skin no rashes, warm and dry Neurologic patellar DTR's 2+ bilat, sensation intact and PERRL, EOMI, accommodation nl, no face palsy, no dysarthria Psychiatric Orientation: + not alert, + not oriented to person, + not oriented to place and + not oriented to time Lymphatic no cervical or axillary lymphadenopathy Discharge Data Allergies Allergy/AdvReac Type Severity Reaction Status Date / Time aspirin AdvReac Unknown contraindicated Verified 02/05/19 14:23 d/t gastritis Consultations 03/06/19 00:06 ED Decision to Admit Stat 03/06/19 03:42 Consult Case Management - Discharge Planning Routine Ordered Studies 03/05/19 22:11 CT cervical spine wo con Stat CT facial bones wo con Stat CT head/brain wo con Stat Hospital Course (1) Acute respiratory failure with hypoxia and hypercapnia: Improved/resolved. Exact cause of her acute resp failure was not fully certain. May have been combination of aspiration +/- pulmonary edema +/- bronchitis. Either way she is much improved today and is off O2. Her lungs sound better today. CXR yesterday with significantly reduced lung volumes. d/c on steroids and Lasix (2) Pulmonary edema: treated with Lasix IV for two days BUN & Cr remain stable. Echo 01/2019 with preserved EF. Thus, edema likely 2nd to diastolic dysfunction. (3) Nasal bone fracture: Plan ENT f/u shortly after discharge. Pain control in meantime. (4) Dementia with behavioral disturbance: By report has advanced dementia; takes Aricept and Namenda. Largely nonverbal and nonambulatory. Declined over the last 4-6 weeks. Has had significant behavioral disturbance since arrival in hospital. Cannot rule out infectious causes contributing to behavioral issues although no fever and normal wbc count. Her symptoms have improved with increase of risperdal to 1.5mg TID. Cont ativan prn. Continue trazodone and melatonin nightly as previous (chronic meds for her) As mental status improved will REDUCE THE RISPERDAL back to previous dosing of 1mg TID. (5) Recurrent falls: Patient with nasal fracture from recent fall. CT head and neck negative. Will remain at high risk of ongoing falls due to advanced dementia. Sitter remains at bedside to ensure safety. return to SNF (6) Altered mental status: Pt had been declining at SNF over last 4-6 weeks by report. Upon admission here had severe hospital psychosis. Risperdal increased to 1.5mg TID only while hospitalized No infectious etiologies found contributing to altered MS. Supportive care. Overall she looks better today. (7) Hypertension: BPs continue to be wnl (8) GERD (gastroesophageal reflux disease): Continue omeprazole and famotidine (9) Hearing loss: Noted (10) Dyslipidemia: Continue atorvastatin (11) TIA (transient ischemic attack): h/o such. cont asa for secondary prevention. (12) Mejia's esophagus: Continue famotidine and omeprazole (13) Hypothyroid: TSH 2.47 Continue Synthroid (14) Depression: Continue SSRI (15) DVT prophylaxis: will start heparin 5000 BID today facial injuries have been stable Total Time Total Time Spent Total Time Spent (In Minutes): 32 minutes Total Time Includes: Examination of the Patient, Discharge Planning and Medic ation Reconciliation Discharge Plan Discharge Items Patient Disposition: Transfer Half-Way Fac Reason For Visit: AMS, FALL Discharge Diagnosis: Altered mental status Weakness with falls Condition on Discharge: Fair Goals: improve mobility Activity: Resume your previous activity Non-emergency contact: Primary Care Provider Call non-emergency contact if: you have any medication questions, your symptoms worsen, your pain is not controlled and you have a fever Follow-up/Referrals: Moe Carrero [Primary Care Provider] - Diet: Heart Healthy Addtl Attending Provider Instructions: Medications: - PREDNISONE: complete 4 more days of 40mg daily - LASIX: take 20mg every other day, may need to progress to 20mg daily if volume not controlled Acute hypoxic respiratory failure, distress improved with diuresis with Lasix IV and steroids combination of bronchitis, some pulmonary edema that is resolving quickly will finish brief course of steroids and start on Lasix every other day going forward Advanced dementia, mental status changes rapid decline the past few weeks, likely needs placement at SNF continue prior regimen for dementia unsure how much benefit Aricept or Namenda will provide going forward, leave that up to PCP who knows her better at baseline Follow up with PCP in one week Pending Studies at Discharge: No Stand-Alone Forms: My [facility] Skilled Items Patient informed of condition?: Yes DNR: Yes Discharge Level of Care: Skilled Communicable Disease: No Discharge Prognosis: Stable Lines: None Urinary Catheter: No Medications and DC Order Prescriptions: New furosemide [Lasix] 20 mg tablet 20 mg PO Q OTHER DAY Qty: 30 RF: 1 Continued melatonin 10 mg capsule 10 mg PO HS RF: 0 atorvastatin [Lipitor] 20 mg tablet 20 mg PO DAILY RF: 0 levothyroxine [Synthroid] 100 mcg tablet 100 mcg PO DAILY RF: 0 omeprazole 20 mg capsule,delayed release(DR/EC) 20 mg PO BID RF: 0 sertraline [Zoloft] 100 mg tablet 150 mg PO DAILY RF: 0 donepezil 5 mg tablet 5 mg PO DAILY RF: 0 nystatin 100,000 unit/gram Cream 1 applic TOPICAL BID PRN (Reason: YEAST) RF: 0 cholecalciferol (vitamin D3) [Vitamin D3] 1,000 unit Capsule 1,000 unit PO DAILY RF: 0 Therems-M 27-0.4 mg Tablet 1 tab PO DAILY RF: 0 memantine 5 mg tablet 5 mg PO BID RF: 0 Preparation H 0.25-14-74.9 % Ointment 1 applic CO BID PRN (Reason: Hemorrhoids) RF: 0 polyethylene glycol 3350 17 gram Powder In Packet 17 g PO DAILY RF: 0 famotidine 20 mg tablet 20 mg PO DAILY RF: 0 trazodone 100 mg tablet 100 mg PO HS RF: 0 aspirin [Ecotrin Low Strength] 81 mg Tablet,Delayed Release (Dr/Ec) 81 mg PO QAM 30 Days Qty: 30 RF: 0 risperidone 1 mg Tablet,Disintegrating 1 mg PO TID 30 Days Qty: 90 RF: 0 tramadol 50 mg tablet 50 mg PO Q4H PRN (Reason: Pain) Qty: 10 RF: 0 lorazepam 0.5 mg tablet 0.5 mg PO TID Qty: 10 RF: 0 acetaminophen [Acetaminophen Extra Strength] 500 mg Tablet 1,000 mg PO TID PRN (Reason: Pain) RF: 0 metoprolol tartrate 25 mg Tablet 12.5 mg PO Q12H RF: 0 acetaminophen [Tylenol] 325 mg Tablet 650 mg PO Q6H PRN (Reason: pain/fever) RF: 0 Discharge Orders: Discharge Order (Routine); Ordered 03/08/19 Ordered By: Peter Barron Admission Data Admit Date/Time: 03/06/19 16:03 Attending Provider: Peter Barron Admit Provider: Selena Hollins Primary Care Provider: Moe Carrero Other Interventions: Discharge Summary Assessment (RN) Last Done: 03/08/19 16:11 DC Date/Time DO NOT enter until pt leaves facility: 03/08/19 17:12
--- NOTE | 2019-03-16 09:53 | Coding Query ---
PRESENT ON ADMISSION QUERY To promote full compliance with coding requirements relating to pateint care, physician participation is requested in all cases of master automotive glass technician uncertainty. Please assist us with the question(s) below: Please place an X within the parenthesis (x). The following diagnosis listed in this patient's medical record require physician assistance to determine if they were present on admission (POA) or not. Please advise for each diagnosis whether it was present on admission, not present on admission, or if it was clinically undetermined. 1. ACUTE RESPIRATORY FAILURE WITH HYPOXIA AND HYPERCAPNIA (documented on 1st Progress Note on 03/06/19) x Present On Admission ( ) Not Present On Admission ( ) Clinically Undetermined Thank you Estefania Moore *Definition of the present on admission (POA)-Present on admission is defined as present at the time the order for inpatient admission occurs. Conditions that develop during an outpatient encounter prior to a written order for inpatient admission (including emergency department, observation, or outpatient surgery) are considered present on admission. GATSON
--- NOTE | 2019-03-16 10:03 | Coding Query ---
CODING QUERY To promote full compliance with coding requirements relating to patient care, provider participation is requested in all cases of asphalt raker uncertainty. Please assist us with the question(s) below: Coding Question(s): 1. There is documentation of possible Pneumonia in the record as well as documentation of aspiration. Please specify below, in your clinical opinion. ( ) Possible Aspiration Pneumonia ( ) Possible Pneumonia Unspecified ( ) Possible Pneumonia, Other: Please Specify ( x ) No Pneumonia, Pneumonia is ruled-out 2. There is documentation of Pulmonary Edema in the record and Discharge Summary with documentation of Echo 01/2019 with preserved EF and documentation of "Thus, edema likely 2nd to diastolic dysfunction. Please specify below, in your clinical opinion. ( x ) Acute Pulmonary Edema. Please further specify below: ( x ) likely etiology is Acute Diastolic CHF ( ) likely etiology is Unknown ( ) likely etiology is Other: Please Specify ( ) Chronic Pulmonary Edema ( ) likely etiology Unknown ( ) likely etiology Other: Please Specify ( ) Other Pulmonary Edema, Please Specify Physician's Response(s): Thank you Estefania Moore Principal Diagnosis: "that condition established after study, to be chiefly responsible for occasioning the admission of the patient to the hospital for care." Co-Existing Principal Diagnosis: "when two or more diagnoses equally meet the criteria for principal diagnosis as determined by the circumstances of admission, diagnostic work up, and/or therapy provided, and the Alphabetic Index, Tabular List, or another coding guideline does not provide sequencing direction, any one of the diagnoses may be sequenced first." "When the physician has documented what appears to be a current diagnosis in the body of the record, but has not included the diagnosis in the final diagnostic statement, the physician should be asked whether the diagnosis should be added." ([facility] 2 QTR90. p3-4) GASTON
--- NOTE | 2019-03-18 06:28 | Coding Query ---
CODING QUERY To promote full compliance with coding requirements relating to patient care, provider participation is requested in all cases of home energy inspector uncertainty. Please assist us with the question(s) below: Coding Question(s): There is documentation in the record and Discharge Summary of recurrent falls. Please specify below, in your clinical opinion, regarding the most likely etiology of the recurrent falls. ( x ) most likely etiology of the recurrent falls is Dementia ( ) most likely etiology of the recurrent falls is Other: Please Specify ( ) most likely etiology of the recurrent falls is Unknown Physician's Response(s): Thank you Estefania Moore Principal Diagnosis: "that condition established after study, to be chiefly responsible for occasioning the admission of the patient to the hospital for care." Co-Existing Principal Diagnosis: "when two or more diagnoses equally meet the criteria for principal diagnosis as determined by the circumstances of admission, diagnostic work up, and/or therapy provided, and the Alphabetic Index, Tabular List, or another coding guideline does not provide sequencing direction, any one of the diagnoses may be sequenced first." "When the physician has documented what appears to be a current diagnosis in the body of the record, but has not included the diagnosis in the final diagnostic statement, the physician should be asked whether the diagnosis should be added." ([facility] QTR90. p3-4) GASTON
== END 2019-03-08 17:12 | DRG 291 ==
LOC: 2W 21:45 → ED 21:45 → SUATTDRO 03-06 01:17 → 2W 03-06 02:28 → SUATTDRO 03-06 16:03 → 4W 03-06 21:06